=== PATIENT | female | born 1960 | race Caucasian/White ===

== ENCOUNTER 2017-07-07 09:29 | Emergency (ER) | payer OTHER, SELFPAY ==
[2017-07-07 09:30] VITALS: BP 136/76; PULSE 75; RESP 16; TEMP 36.6; O2SAT 90
[2017-07-07 09:31] VITALS: BP 136/76; PULSE 76; RESP 16; TEMP 37; O2SAT 93; BMI 28.3
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
[2017-07-07 10:17] LABS: Basophils # 0.1 K/mm3 (0-0.2); Basophils % 0.7 % (0.1-2.0); Eosinophils # 0.3 K/mm3 (0.0-0.4); Eosinophils % 3.5 % (0.1-12.0); Hematocrit 44.4 % (37.0-47.0); Hemoglobin 14.8 g/dL (12.2-16.2); Lymphocytes # 3.1 K/mm3 (0.7-4.5); Lymphocytes % 36.5 K/mm3 (10-50); Mean Corpuscular HGB Conc 33.4 g/dL (31.8-35.4); Mean Corpuscular Hemoglobin 30.2 pg (27.0-31.2); Mean Corpuscular Volume 90.6 fl (81-99); Mean Platelet Volume 7.5 fl (7.4-10.4); Monocytes # 0.4 K/mm3 (0.1-1.0); Monocytes % 4.5 % (1.7-9.3); Neutrophils # 4.7 K/mm3 (1.8-7.8); Neutrophils % 54.7 % (37.0-80.0); Platelet Count 279 K/mm3 (142-424); Red Cell Distribution Width 12.4 % (11.5-17.5); White Blood Count 8.6 K/mm3 (4.8-10.8)
[2017-07-07 10:29] VITALS: BP 136/80; PULSE 75; RESP 16; O2SAT 98
[2017-07-07 10:34] LABS: Alanine Aminotransferase 37 U/L (12-78); Albumin/Globulin Ratio 1.1 (1.1-1.8); Alkaline Phosphatase 80 U/L (46-116); Anion Gap 15.6 mEq/L (5-15); Aspartate Amino Transferase 20 U/L (15-37); Bilirubin,Total 0.3 mg/dL (0.2-1.0); Blood Urea Nitrogen 13 mg/dL (7-18); Calcium 9.2 mg/dL (8.5-10.1); Carbon Dioxide 25 mmol/L (21.0-32.0); Chloride 99 mmol/L (98-107); Creatinine Clearance Estimated 73 mL/min (0-300); Creatinine,Serum 0.89 mg/dL (0.55-1.02); Estimated Glomerular Filt Rate 66 ml/min (>60); GFR (African American) 79 ML/MIN (>60); Globulin 3.8 gm/dl (1.3-3.2); Glucose 194 mg/dL (74-106); Potassium 3.6 mmoL/L (3.5-5.1); Sodium 136 mmol/L (136-145); Total Protein,Serum 7.8 gm/dL (6.4-8.2)
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
--- NOTE | 2017-07-07 13:51 | ED_ITS ---
ED Disposition Clinical Impression: Head contusion Qualifiers: Encounter type: initial encounter Contusion of head detail: other part of head Qualified Code(s): S00.83XA - Contusion of other part of head, initial encounter Cervical strain, acute Qualifiers: Encounter type: initial encounter Qualified Code(s): S16.1XXA - Strain of muscle, fascia and tendon at neck level, initial encounter Cold exposure Qualifiers: Encounter type: initial encounter Qualified Code(s): T69.9XXA - Effect of reduced temperature, unspecified, initial encounter Sinusitis Qualifiers: Sinusitis location: unspecified location Chronicity: unspecified Qualified Code (s): J32.9 - Chronic sinusitis, unspecified Disposition: Home, Self-Care Condition on Discharge: Good Instructions: DI for Sinusitis Additional Instructions: see pcp for follow up - Critical Care Critical Care Time: No Attestation: On 07/07/17, the high probability of a clinically significant, sudden or life threatening deterioration of the following system(s) required my full and direct attention, intervention and personal management. The time I documented below is in addition to time spent performing reported procedures but includes the following listed in this critical care notation. Medical Decision Making - Medical Records Medical records reviewed: Yes: I reviewed the patient's medical records. Vital Signs: 07/07/17 09:30 07/07/17 09:31 07/07/17 10:29 Temperature 97.9 F 98.6 F Temperature Source Oral Oral Pulse Rate [Right Brachial] 75 76 75 Respiratory Rate 16 16 16 Blood Pressure [Left Arm] 136/76 136/76 136/80 Blood Pressure Mean [Left Arm] 96 96 98 Blood Pressure Source [Left Arm] Manual Cuff/ Auscultation Manual Cuff/ Auscultation Automatic Cuff Blood Pressure Position [Left Arm] Sitting Sitting Sitting 02 Sat by Pulse Oximetry 90 L 93 L 98 Oxygen Delivery Method Room Air Room Air Room Air - Lab Data Lab results reviewed: Yes: I reviewed the patient's lab results. Lab Results 07/07/17 10:03: WBC 8.6, RBC 4.90, Hgb 14.8, Hct 44.4, MCV 90.6, MCH 30.2, MCHC 33.4, RDW 12.4, Plt Count 279, MPV 7.5, Neut % (Auto) 54.7, Lymph % (Auto) 36.5 , Harmon % (Auto) 4.5, Eos % (Auto) 3.5, Baso % (Auto) 0.7, Neut # (Auto) 4.7, Lymph # (Auto) 3.1, Harmon # (Auto) 0.4, Eos # (Auto) 0.3, Baso # (Auto) 0.1 07/07/17 10:03: Sodium 136, Potassium 3.6, Chloride 99, Carbon Dioxide 25, Anion Gap 15.6 H, BUN 13, Creatinine 0.89, Estimated Creat Clear 73, Estimated GFR 66, Est GFR ( Amer) 79, Glucose 194 H, Calcium 9.2, Total Bilirubin 0.3, AST 20, ALT 37, Alkaline Phosphatase 80, Total Protein 7.8, Albumin 4.0, Globulin 3.8 H, Albumin/Globulin Ratio 1.1 Result diagrams: 07/07/17 10:03 07/07/17 10:03 Orders (Tests/Meds): ED MEDICATIONS Discontinued Medications Generic Name Dose Route Start Last Admin Trade Name Freq PRN Reason Stop Dose Admin Acetaminophen 650 mg 07/07/17 11:37 07/07/17 11:45 Acetaminophen 325mg Tab PO 07/07/17 11:38 650 mg ONCE ONE Administration - Radiology Data #1 Image(s): Chest, Pelvis Image Reviewed: Yes I reviewed the patient's radiology image Preliminary Findings: Normal/NAD - CT Data CT Scan: Head, C-Spine Time Received: 13:[address] Reviewed: Yes: I have viewed the radiologist's interpretation Preliminary Findings: No Fractu
[2017-07-07 14:11] VITALS: BP 132/78; PULSE 87; RESP 14; TEMP 37; O2SAT 95
[2017-07-08 07:45] LABS: POC Glucose,Bedside 198 mg/dL
== END 2017-07-07 14:12 | disposition home or self-care (01) ==
PROVIDERS: Emergency Provider Emergency Medicine; Family Provider Family Medicine
DX: S00.93XA Contusion of unspecified part of head, initial encounter (principal); S16.1XXA Strain of muscle, fascia and tendon at neck level, initial encounter; T69.9XXA Effect of reduced temperature, unspecified, initial encounter; J32.9 Chronic sinusitis, unspecified; V48.0XXA Car driver injured in noncollision transport accident in nontraffic accident, initial encounter; Y92.488 Other paved roadways as the place of occurrence of the external cause
CPT/HCPCS: 70450; 71045; 72125; 72170; 80053; 82962; 85025; 99281; 99291

== ENCOUNTER → 2020-03-21 12:41 | Outpatient (CLI) | payer OTHER, SELFPAY ==
--- NOTE | 2020-03-21 12:53 | XR_ITS ---
PROCEDURE: XR CHEST 2V CLINICAL HISTORY: HTN,ANGINA,EDEMA COMPARISON: No exams were available for comparison FINDINGS: Mild emphysematous changes noted with hyperexpansion lung coto. There is no infiltrate. Cardiac size is normal and vascularity is normal and there is no pleural fluid. IMPRESSION: Mild COPD, no acute chest pathology noted Dictated by: Dr. Ranjit Jones MD 03/21/2020 13:09 Dr. Ranjit Jones MD in [place] 03/21/2020 13:09
[2020-03-21 14:00] LABS: Chloride 99 mmol/L (98-107); Sodium 139 mmol/L (136-145)
[2020-03-21 14:01] LABS: Potassium 3.8 mmoL/L (3.5-5.1)
[2020-03-21 14:04] LABS: Anion Gap 12.8 mEq/L (5-15); Blood Urea Nitrogen 13 mg/dl (7-17); Calcium 9.5 mg/dl (8.4-10.2); Carbon Dioxide 31 mmol/L (22.0-30.0); Estimated Glomerular Filt Rate 86 ml/min (>60); GFR (African American) 104 ML/MIN (>60); Glucose 110 mg/dl (74-100)
[2020-03-21 14:12] LABS: NT Pro Brain Natriuretic Pep. 50.3 pg/mL (0-125)
== END ==
PROVIDERS: Visit Provider Family Medicine
DX: I20.0 Unstable angina (principal); I10 Essential (primary) hypertension; R60.1 Generalized edema; Z87.891 Personal history of nicotine dependence
CPT/HCPCS: 36415; 71046; 80048; 83880

== ENCOUNTER → 2020-03-31 06:13 | Outpatient (CLI) | payer OTHER, SELFPAY ==
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
--- NOTE | 2020-03-31 06:19 | NM_ITS ---
APPROVED REPORT Exam: Nuclear Stress Test Indication: Chest pain, SOB, HTN, DM, Former tobacco use, Family history, Abnormal EKG Patient Location: Outpatient Stress Tech: Senait Goncalvesnkson NM Tech:Mel Mcfarlane, ARRT, RT (R)(N) Ht: 5 ft 0 in Wt: 165 lbs Bra Size: 38B HR: 78 bpm BP: 148/78 mmHg BSA: 1.72 m2 History: Chest pain, SOB, HTN, DM, Former tobacco use, Family history, Abnormal EKG Procedure: Patient received a 0.4 mg of intravenous Lexiscan, resting heart rate 78 bpm, resting blood pressure 148/78 mmHg, with Lexiscan maximum heart rate achived was 103 bpm which is Less than 85 % of the maximum predicted heart rate and blood pressure was 165/76 mmHg. Electrocardiogram Resting electrocardiogram showed sinus rhythm, with Lexiscan there is less than 1.[address] segment depression noted from the baseline EKG. The EKG portion of the Lexiscan Myoview is nondiagnostic. Cardiac Stress and Resting SPECT Images: Cardiac Stress and Resting SPECT images were obtained using technetium 99m Myoview 30.6 mCi stress and 10.42 mCi at rest. Gated SPECT for analysis of segmental wall motion and calculation of the ejection fraction also done. Prone images were also obtained. Cardiac stress and resting SPECT images show uniform myocardial activity without segmental perfusion abnormality, computer derived ejection fraction is over 65% with no regional wall motion abnormality, right ventricle is normal size and contractility. Conclusion: 1. The EKG portion of the Lexiscan Myoview is nondiagnostic. 2. No scintigraphic evidence of reversible ischemia seen, computer derived ejection fraction is over 65% with no regional wall motion abnormality, right ventricle is normal size and contractility. 3. Normal Lexiscan Myoview study. Electronically signed by : Alex Damian, 03/31/2020 11:00:22
--- NOTE | 2020-03-31 08:40 | HMH.ITSHM ---
Current Home Medications as stated by this patient Javier Glass or bilingual inside sales representative. []ASA ATENOLOL LISINOPRIL INSULIN
== END ==
PROVIDERS: PCP Family Medicine; Visit Provider Family Medicine
DX: I20.0 Unstable angina (principal); I10 Essential (primary) hypertension; E11.9 Type 2 diabetes mellitus without complications; Z87.891 Personal history of nicotine dependence
CPT/HCPCS: 78452; 93017; A9502; J2785

== ENCOUNTER → 2020-06-15 08:12 | Outpatient (CLI) | payer OTHER, SELFPAY ==
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
[2020-06-15 09:55] VITALS: PULSE 62; PULSE 64
== END ==
PROVIDERS: PCP Family Medicine; Visit Provider Family Medicine
DX: R06.00 Dyspnea, unspecified (principal); J18.9 Pneumonia, unspecified organism; Z87.891 Personal history of nicotine dependence; Z99.81 Dependence on supplemental oxygen
CPT/HCPCS: 71250; 94060; 94640

== ENCOUNTER → 2020-08-12 11:25 | Outpatient (CLI) | payer OTHER, SELFPAY | PROVIDERS: PCP Family Medicine; Visit Provider Internal Medicine Pulmonary Disease | DX: R06.00 Dyspnea, unspecified (principal); Z87.891 Personal history of nicotine dependence; Z99.81 Dependence on supplemental oxygen | CPT/HCPCS: 94060; 94618; 94726; 94729 ==

== ENCOUNTER → 2020-08-12 13:05 | Outpatient (CLI) | payer OTHER, SELFPAY ==
[2020-08-14 10:30] LABS: Alpha-1-Antitrypsin 145 mg/dL (101-187)
== END ==
PROVIDERS: Visit Provider Internal Medicine Pulmonary Disease
DX: J44.9 Chronic obstructive pulmonary disease, unspecified (principal)
CPT/HCPCS: 36415; 82103

== ENCOUNTER → 2020-09-14 13:00 | Outpatient (CLI) | payer OTHER, SELFPAY ==
--- NOTE | 2020-09-14 13:00 | CT_ITS ---
PROCEDURE: CT CHEST WO CON CLINICAL INDICATION: Nodule follow up 3 months from 06/17/2020 Prior on pacs Follow-up pulmonary nodule COMPARISON: CT CT CHEST WO CON from 06/15/2020 TECHNIQUE: Axial images obtained with sagittal and coronal reformats. All CT scans at the facility use one or more dose reduction, viz: automated exposure control, ma/kV adjustment per patient size (including targeted exams where dose is matched to indication, i.e. head), or iterative reconstruction technique. FINDINGS: HEART AND MEDIASTINAL STRUCTURES: No mediastinal or hilar mass. Coronary artery calcifications are present. LUNGS AND PLEURAL SPACES: Panlobular emphysema. 12 mm right upper lobe nodule once again noted not significantly changed. Scattered areas of scarring. There is a subpleural density in the right upper lobe posteriorly at 10 mm unchanged. 6 mm subpleural nodule right middle lobe anteriorly unchanged dependent changes are present in the lower lobes. Septal thickening once again noted in the lung bases BONY STRUCTURES: No acute bony abnormalities apparent. UPPER ABDOMEN: Unremarkable. ADDITIONAL FINDINGS: No other significant abnormalities. IMPRESSION: Stable CT appearance of the chest. No change in the nodular densities in the right upper lobe right middle lobe and subpleural region of the right lower lobe. Suggest continued 6-9 month follow-up COPD with panlobular emphysema and scattered areas of scarring as well dependent changes Dictated by: Zac Rivers MD 09/15/2020 12:09 Zac Rivers MD in [place] 09/15/2020 12:09
== END ==
PROVIDERS: PCP Family Medicine; Visit Provider Internal Medicine Pulmonary Disease
DX: R91.1 Solitary pulmonary nodule (principal); R91.8 Other nonspecific abnormal finding of lung field
CPT/HCPCS: 71250

== ENCOUNTER → 2021-06-14 15:31 | Outpatient (CLI) | payer OTHER, SELFPAY ==
--- NOTE | 2021-06-14 15:31 | CT_ITS ---
FINAL REPORT TECHNIQUE: Axial CT images were performed from the lung apices through the upper abdomen. Coronal reformats were submitted. This study was performed with techniques to keep radiation doses as low as reasonably achievable (ALARA). Individualized dose reduction techniques using automated exposure control or adjustment of mA and/or kV according to the patient's size were employed. CLINICAL HISTORY: 9-month follow-up COMPARISON: 09/14/2020 FINDINGS: There is no axillary adenopathy. There is no hilar or mediastinal mass or adenopathy. Heart size is normal. There is no pericardial or pleural effusion. There is moderate emphysema. Mild scarring is identified. There is a 14 mm right apical nodule which is stable. There is a pleural-based nodule in the anterior right lung base measuring 4 mm, stable. No new mass or nodule is identified. There is mild fatty infiltration of the liver. IMPRESSION: Stable nodules as above. Consider additional follow-up CT in 12 months. Reviewed, Interpreted and Dictated by Saad Talamantes III, MD Transcribed by Becky Stewart Authenticated by Saad Talamantes III, MD on 06/14/2021 04:44:51 PM [facility]
== END ==
PROVIDERS: PCP Family Medicine; Visit Provider Internal Medicine Pulmonary Disease
DX: R91.8 Other nonspecific abnormal finding of lung field (principal)
CPT/HCPCS: 71250

== ENCOUNTER → 2021-06-26 09:29 | Outpatient (CLI) | payer OTHER, SELFPAY | PROVIDERS: PCP Family Medicine; Visit Provider Internal Medicine Pulmonary Disease | DX: R06.00 Dyspnea, unspecified (principal) | CPT/HCPCS: 94762 ==

== ENCOUNTER → 2021-07-10 09:49 | Outpatient (CLI) | payer OTHER, SELFPAY | PROVIDERS: PCP Family Medicine; Visit Provider Internal Medicine Pulmonary Disease | DX: G47.33 Obstructive sleep apnea (adult) (pediatric) (principal) | CPT/HCPCS: 95806 ==

== ENCOUNTER → 2021-08-09 20:58 | Outpatient (CLI) | payer OTHER, SELFPAY | PROVIDERS: PCP Family Medicine; Visit Provider Nurse Practitioner Family | DX: G47.33 Obstructive sleep apnea (adult) (pediatric) (principal); R09.02 Hypoxemia | CPT/HCPCS: 95811 ==

== ENCOUNTER → 2021-12-07 07:27 | Outpatient (CLI) | payer OTHER, SELFPAY ==
[2021-12-07 08:30] VITALS: PULSE 66; PULSE 68
[2021-12-07 08:50] VITALS: BP 140/82; BP 145/90; PULSE 81; PULSE 88; RESP 20; RESP 22; O2SAT 88; O2SAT 89
== END ==
PROVIDERS: PCP Family Medicine; Visit Provider Internal Medicine Pulmonary Disease
DX: R06.09 Other forms of dyspnea (principal); R91.1 Solitary pulmonary nodule
CPT/HCPCS: 94060; 94618; 94640; 94727; 94729

== ENCOUNTER → 2022-01-30 12:21 | Outpatient (CLI) | payer OTHER, SELFPAY | PROVIDERS: PCP Family Medicine; Visit Provider Nurse Practitioner Family | DX: G47.33 Obstructive sleep apnea (adult) (pediatric) (principal); G47.36 Sleep related hypoventilation in conditions classified elsewhere | CPT/HCPCS: 94762 ==

== ENCOUNTER → 2022-03-20 09:06 | Outpatient (CLI) | payer OTHER, SELFPAY | PROVIDERS: PCP Family Medicine; Visit Provider Internal Medicine Pulmonary Disease | DX: R06.02 Shortness of breath (principal) | CPT/HCPCS: 93306 ==

== ENCOUNTER → 2022-04-23 10:24 | Outpatient (CLI) | payer OTHER, SELFPAY ==
[2022-04-23 11:37] LABS: Chloride 99 mmol/L (98-107); Potassium 4.7 mmoL/L (3.5-5.1); Sodium 141 mmol/L (136-145)
[2022-04-23 11:40] LABS: Blood Urea Nitrogen 21 mg/dl (7-17); Estimated Glomerular Filt Rate 38 ml/min (>60); GFR (African American) 46 ML/MIN (>60)
[2022-04-23 11:41] LABS: Anion Gap 15.7 mEq/L (5-15); Calcium 10.8 mg/dl (8.4-10.2); Carbon Dioxide 31 mmol/L (22.0-30.0); Glucose 115 mg/dl (74-100)
== END ==
PROVIDERS: PCP Family Medicine; Visit Provider Physician Assistant
DX: R06.09 Other forms of dyspnea (principal); I10 Essential (primary) hypertension
CPT/HCPCS: 36415; 80048

== ENCOUNTER → 2022-05-01 10:56 | Outpatient (CLI) | payer OTHER, SELFPAY ==
[2022-05-01 12:09] LABS: Anion Gap 21.8 mEq/L (5-15); Blood Urea Nitrogen 15 mg/dl (7-17); Carbon Dioxide 31 mmol/L (22.0-30.0); Chloride 93 mmol/L (98-107); Estimated Glomerular Filt Rate 73 ml/min (>60); GFR (African American) 88 ML/MIN (>60); Glucose 107 mg/dl (74-100); Potassium 3.8 mmoL/L (3.5-5.1); Sodium 142 mmol/L (136-145)
== END ==
PROVIDERS: PCP Family Medicine; Visit Provider Nurse Practitioner
DX: N28.9 Disorder of kidney and ureter, unspecified (principal); I51.89 Other ill-defined heart diseases
CPT/HCPCS: 36415; 80048

== ENCOUNTER → 2022-05-21 12:47 | Outpatient (CLI) | payer OTHER, SELFPAY ==
[2022-05-21 13:43] LABS: Basophils # 0.1 K/mm3 (0-0.2); Basophils % 1.1 % (0.1-2.0); Eosinophils # 0.2 K/mm3 (0.0-0.4); Hematocrit 47.3 % (37.0-47.0); Hemoglobin 15.8 g/dL (12.2-16.2); Lymphocytes # 2.9 K/mm3 (0.7-4.5); Lymphocytes % 31.3 % (10-50); Mean Corpuscular HGB Conc 33.3 g/dL (31.8-35.4); Mean Corpuscular Hemoglobin 30.9 pg (27.0-31.2); Mean Corpuscular Volume 92.9 fl (81-99); Mean Platelet Volume 8.2 fl (7.4-10.4); Monocytes # 0.4 K/mm3 (0.1-1.0); Monocytes % 4.5 % (1.7-9.3); Neutrophils # 5.6 K/mm3 (1.8-7.8); Neutrophils % 61.2 % (37.0-80.0); Platelet Count 287 K/mm3 (142-424); Red Cell Distribution Width 13.2 % (11.5-17.5); White Blood Count 9.1 K/mm3 (4.8-10.8)
[2022-05-21 14:16] LABS: Alanine Aminotransferase 24 U/L (12-78); Alkaline Phosphatase 93 U/L (38-126); Anion Gap 13.8 mEq/L (5-15); Aspartate Amino Transferase 31 U/L (14-36); Bilirubin,Indirect 0.2 mg/dL (0.0-0.9); Bilirubin,Total 0.2 mg/dl (0.2-1.3); Bilirubin,Unconjugated 0.2 mg/dL (0.0-1.1); Blood Urea Nitrogen 13 mg/dl (7-17); Calcium 10.5 mg/dl (8.4-10.2); Carbon Dioxide 27 mmol/L (22.0-30.0); Chloride 103 mmol/L (98-107); Chol/HDL Ratio 4.7 (1-3.5); Cholesterol 196 mg/dl (140-200); Estimated Glomerular Filt Rate 85 ml/min (>60); GFR (African American) 103 ML/MIN (>60); Glucose 128 mg/dl (74-100); HDL Cholesterol 42 mg/dl (40-60); Magnesium 2.2 mg/dl (1.6-2.3); Potassium 3.8 mmoL/L (3.5-5.1); Sodium 140 mmol/L (136-145); Total Protein,Serum 7.9 g/dl (6.3-8.2); Triglycerides 250 mg/dl (30-150); VLDL Cholesterol 50 mg/dL (0-40)
[2022-05-21 14:26] LABS: Direct LDL Cholesterol 117.96 mg/dL (100-129)
[2022-05-21 14:28] LABS: Intact Parathyroid Hormone 39.1 pg/mL (7.5-53.5)
[2022-05-21 14:46] LABS: Thyroid Stimulating Hormone 5.41 uIU/mL (0.465-4.68)
[2022-05-21 15:34] LABS: Free T4 (Free Thyroxine) 0.76 ng/dl (0.78-2.19)
[2022-05-23 14:12] LABS: Albumin 4.3 g/dL (2.9-4.4); Alpha-1-Globulin 0.2 g/dL (0.0-0.4); Alpha-2-Globulin 0.7 g/dL (0.4-1.0); Gamma Globulin 1.1 g/dL (0.4-1.8); Protein, Total 7.5 g/dL (6.0-8.5)
== END ==
PROVIDERS: PCP Family Medicine; Visit Provider Physician Assistant
DX: R06.09 Other forms of dyspnea (principal); R00.2 Palpitations; E83.52 Hypercalcemia; H53.9 Unspecified visual disturbance; I10 Essential (primary) hypertension
CPT/HCPCS: 36415; 80048; 80061; 80076; 83735; 83970; 84155; 84165; 84439; 84443; 85025; 93270

== ENCOUNTER → 2022-05-28 13:39 | Outpatient (CLI) | payer OTHER, SELFPAY ==
--- NOTE | 2022-05-28 13:42 | CA_ITS ---
FINAL REPORT TECHNIQUE: Color Doppler, duplex Doppler and costa scale sonography of the bilateral neck arterial vasculature was performed. Velocities were measured in the carotid arteries. Stenosis evaluation based on the validated velocity criteria. CLINICAL HISTORY: VISUAL DISTURBANCES,HTN FINDINGS: The peak systolic velocity of the right common carotid artery is 110 cm/s. The peak systolic velocity of the right internal carotid artery is 119 cm/s and end diastolic velocity 41 cm/s. The ICA/CCA ratio is 1.1. A small amount of plaque is present. The right external carotid artery is patent. The right vertebral artery is patent with antegrade flow. The peak systolic velocity of the left common carotid artery is 90 cm/s. The peak systolic velocity of the left internal carotid artery is 106 cm/s and end diastolic velocity 41 cm/s. The ICA/CCA ratio is 1.3. A small amount of plaque is present. The left external carotid artery is patent.The left vertebral artery is patent with antegrade flow. IMPRESSION: Less than 50% bilateral carotid stenoses. Bilateral patent vertebral arteries with antegrade flow. If indicated, CTA or MRA could further evaluate. Reviewed, Interpreted and Dictated by Saad Talamantes III, MD Transcribed by Becky Stewart Authenticated and . [facility]
--- NOTE | 2022-05-28 14:01 | US_ITS ---
FINAL REPORT CLINICAL HISTORY: hypercalcemia FINDINGS: Limited sonographic images of the thyroid were obtained. The thyroid is enlarged with heterogeneous echotexture. The right lobe of the thyroid measures 5.4 x 1.7 x 1.5 cm. The left lobe of the thyroid measures 5.3 x 1.8 x 1.7 cm. The isthmus measures 0.3 cm. There is a solid, hypoechoic nodule in the right upper lobe of the thyroid measuring 9 x 8 x 4 mm consistent with TI-RADS category 4. There is a solid, hypoechoic nodule in the right lower thyroid lobe measuring 9 x 8 x 6 mm consistent with TI-RADS category 4. There is a 3rd nodule adjacent to this in the right lower lobe of the thyroid measuring 7 x 8 x 5 mm consistent with TI-RADS category 4. There is a nodule in the left lower lobe of the thyroid measuring 15 x 9 x 11 mm which is cystic and solid consistent with TI-RADS category 1. IMPRESSION: Bilateral thyroid nodules as detailed above. No follow-up is required. Reviewed, Interpreted and Dictated by Saad Talamantes III, MD Transcribed by Becky Stewart Authenticated and [facility][1]
== END ==
PROVIDERS: PCP Family Medicine; Visit Provider Physician Assistant
DX: R06.09 Other forms of dyspnea (principal); E83.52 Hypercalcemia; H53.9 Unspecified visual disturbance; I10 Essential (primary) hypertension; R00.2 Palpitations
CPT/HCPCS: 76536; 93880

== ENCOUNTER → 2022-06-20 15:02 | Outpatient (CLI) | payer OTHER, SELFPAY ==
[2022-06-20 17:44] LABS: Blood Urea Nitrogen 14 mg/dl (7-17); Calcium 9.4 mg/dl (8.4-10.2); Carbon Dioxide 29 mmol/L (22.0-30.0); Chloride 104 mmol/L (98-107); Estimated Glomerular Filt Rate 73 ml/min (>60); GFR (African American) 88 ML/MIN (>60); Glucose 115 mg/dl (74-100); Sodium 143 mmol/L (136-145)
== END ==
PROVIDERS: PCP Family Medicine; Visit Provider Physician Assistant
DX: E04.1 Nontoxic single thyroid nodule (principal); E83.52 Hypercalcemia; H53.9 Unspecified visual disturbance; I10 Essential (primary) hypertension; I51.89 Other ill-defined heart diseases; R00.2 Palpitations; R06.09 Other forms of dyspnea
CPT/HCPCS: 36415; 80048

== ENCOUNTER → 2022-07-02 15:11 | Outpatient (CLI) | payer OTHER, SELFPAY ==
--- NOTE | 2022-07-02 15:11 | CT_ITS ---
FINAL REPORT CLINICAL HISTORY: lung cancer screening former smoker. quit 17 years ago. smoked 1.5 ppd x 42 years copd, emphysema, chf COMPARISON: September 14, 2020 and June 14, 2021 FINDINGS: Low-Dose Chest CT Axial images were obtained from the lung apex to the mid abdomen by computed tomography. Low-dose protocol was utilized. CTDI vol (mGy): 2.90 DLP (mGy-cm): 96.38 There is no axillary adenopathy. There is no hilar or mediastinal adenopathy. The heart is proper size. There is no pericardial or pleural effusion. Lung window images demonstrate severe changes of emphysema with moderate pulmonary scarring. There is a 13 mm nodular opacity in the lateral right upper lobe which is stable. There is a 4 mm right middle lobe nodule which is stable. No new mass or nodule is identified. Limited images of the upper abdomen demonstrate post cholecystectomy changes. IMPRESSION: Lung RADS category 2. Recommend 12 month follow-up low-dose chest CT. Reviewed, Interpreted and Dictated by Saad Talamantes III, MD Transcribed by Che Nelson Authenticated and [facility]
== END ==
PROVIDERS: PCP Family Medicine; Visit Provider Internal Medicine Pulmonary Disease
DX: Z87.891 Personal history of nicotine dependence (principal); Z12.2 Encounter for screening for malignant neoplasm of respiratory organs
CPT/HCPCS: 71271

== ENCOUNTER → 2022-10-17 12:53 | Outpatient (CLI) | payer OTHER, SELFPAY ==
[2022-10-17 13:40] VITALS: PULSE 88; PULSE 95
== END ==
PROVIDERS: PCP Family Medicine; Visit Provider Internal Medicine Pulmonary Disease
DX: R06.09 Other forms of dyspnea (principal)
CPT/HCPCS: 94060; 94618; 94640; 94727; 94729

== ENCOUNTER → 2022-12-18 14:44 | Outpatient (CLI) | payer OTHER, SELFPAY ==
[2022-12-18 16:04] LABS: Free T4 (Free Thyroxine) 0.94 ng/dl (0.78-2.19)
[2022-12-18 16:18] LABS: Thyroid Stimulating Hormone 5.89 uIU/mL (0.465-4.68)
== END ==
PROVIDERS: PCP Family Medicine; Visit Provider Student in an Organized Health Care Education/Training Program
DX: E03.9 Hypothyroidism, unspecified (principal)
CPT/HCPCS: 36415; 84439; 84443

== ENCOUNTER → 2023-03-18 13:30 | Outpatient (CLI) | payer OTHER, SELFPAY ==
[2023-03-18 16:38] LABS: Thyroid Stimulating Hormone 5.04 uIU/mL (0.465-4.68)
== END ==
PROVIDERS: PCP Family Medicine; Visit Provider Nurse Practitioner
DX: E03.9 Hypothyroidism, unspecified (principal); E04.1 Nontoxic single thyroid nodule
CPT/HCPCS: 36415; 84439; 84443

== ENCOUNTER → 2023-04-04 07:23 | Outpatient (CLI) | payer OTHER, SELFPAY ==
--- NOTE | 2023-04-04 | CA_ITS ---
APPROVED REPORT Exam: Pharmacologic Technologist: Gia Carmichael, Ht: 5 ft 6 in Wt: 162 lbs BSA: 1.83 m2 HR: 70 bpm BP: 144/67 mmHg Rhythm: NSR Medical History Medications: Levothyroxine,,,,, Metoprolol Tartrate,,,,, Atorvastatin,,,,, Farxiga,,,,, Albuterol,,,,, MiraLAX,,,,, SpirOnolactone,,,,, AZelastine,,,,, MonteKULAST,,,,, ANoro Ellipta,,,,, Ozempic,,,,, INSULIN Gargine,,,,, Stress Test Details Test: LEXISCAN Reason for pharmacologic stress test: physical limitation. HR Resting HR: 71 bpm Max Heart Rate (APMHR): 158 bpm Max HR Achieved: 91 bpm Target HR (85% APMHR): 134 bpm % of APMHR: 58 Recovery HR: 78 bpm BP Resting BP: 144.0/67.0 mmHg Max BP: 157.0/76.0 mmHg Recovery BP: 149.0/75.0 mmHg ECG Resting ECG: NSR, low voltage QRS Stress ECG: No significant ST changes Arrhythmia: None Clinical Exercise duration: 04:00 min Highest Stage Achieved: Stress ECG Conclusion Symptoms: mild chest pressure, SOA, mild head discomfort. Arrhythmias/Ectopy: None ST-T Changes: No significant ST changes. Conclusion: Unremarkable Lexiscan stress. Myoview images reported separately. Test Summary REST . . . . . . . Resting REST 03:03 . . 71 . 144/ 67 . . Stage 1 01:00 . . 89 . . . . Stage 2 01:00 . . 84 . 157/ 76 . . Stage 3 01:00 . . 79 . 141/ 72 . . Stage 4 01:00 . . 79 . 156/ 75 . Stop exercise at 04:00 RECOVERY 01:00 . . 79 . 135/ 75 . . RECOVERY 02:00 . . 76 . 135/ 75 . . RECOVERY 03:00 . . 79 . 144/ 77 . . RECOVERY 03:29 . . 78 . 149/ 75 . . Electronically signed by : Loida Meng MD 04/10/2023 14:14:36
--- NOTE | 2023-04-04 07:24 | NM_ITS ---
APPROVED REPORT Exam: Nuclear Stress Test Indication: ..chest pain..soa Patient Location: Outpatient Stress Tech: Gia Chavarria [place] Tech:Helen Jara MAYO RT(R)(N) Ht: 5 ft 0 in Wt: 161 lbs Bra Size: 36b HR: 71 bpm BP: 144/67 mmHg BSA: 1.70 m2 Rhythm: NSR TID: 1.17 History: chest pain..soa Procedure: Patient received 0.4 mg of intravenous Lexiscan, resting heart rate 71 bpm, resting blood pressure 144/67 mmHg, with Lexiscan maximum heart rate achieved was 91 bpm which is 85 % of the maximum predicted heart rate and blood pressure was 157/76 mmHg. With Lexiscan, patient denied any complaint of chest pain. Cardiac Stress and Resting SPECT Images: Cardiac Stress and Resting SPECT images were obtained using technetium 99m Myoview 32.4 mCi stress and 10.67 mCi at rest. Resting and stress imaging in supine and prone positions demonstrate no evidence of fixed or reversible perfusion defects. Gated imaging demonstrates normal global and regional LV systolic function. LVEF is calculated at 72%. Conclusion: No evidence of fixed or reversible perfusion defects. Gated imaging demonstrates normal global and regional LV systolic function. LVEF is calculated at 72%. Electronically signed by : Loida Meng MD 04/10/2023 14:15:43
--- NOTE | 2023-04-04 07:45 | CA_ITS ---
APPROVED REPORT EXAM: Comprehensive 2D, Doppler, and color-flow Echocardiogram It Support Technician: Nancy Brown CRT Ht: 5 ft 5 in Wt: 162lbs BSA: 1.81 BP: 121/69 mmHg Indications: Chest Pain, COPD, Diabetes, Obesity, Hypertension/HDD 2D Dimensions LVOT 1.68 cm (M/F) 1.5-2.5 LA Volume 17.90 mL LA Volume Index 9.70 mL/m2 (M/F) 16-34 M-Mode Dimensions RVDd 2.61 cm (0.9-2.6) LA Diam 3.34 cm (1.9-4.0) LVDd 4.29 cm (3.5-5.7) Ao Diam 3.78 cm (2.0-3.7) LVDs 2.81 cm (3.5-5.7) IVSd 1.00 cm (0.6-1.1) PWd 0.90 cm (0.6-1.1) EF (Teich) 63.90% FS 34.50% EDV (Teich) 82.60 mL TAPSE 1.78 (<1.7) ESV (Teich) 29.80 mL LV Diastology E Decel Time 273.00 (160-240 msec) E/A Ratio 0.75 MED E' 9.60 (< 7 cm/sec) MED A' 8.50 cm/s E'/MED E' Ratio 6.66 (>14) LAT E' 7.80 (<10 cm/sec) LAT A' 10.20 cm/s E/LAT E' Ratio 8.19 (>14) Aortic Valve AO Peak GR. 6.30 mmHg Mitral Valve MV A Velocity 85.00 (40-130 cm/s) E/A Ratio 0.75 MV Decel. Time 273.00 (160-240 ms) Pulmonary Valve PV Peak Velocity 115.00 (50-150 cm/s) Tricuspid Valve TR P. Velocity 137.00 cm/s RAP Estimate 10.00 mmHg RVSP 17.50 mmHg Left Ventricle The left ventricle is normal size. The left ventricular systolic function is normal. The left ventricular ejection fraction is within the normal range. There is normal left ventricular wall thickness. There is normal LV segmental wall motion. The left ventricular diastolic function is normal. LVEF is 55%. Right Ventricle The right ventricle is normal size. The right ventricular systolic function is normal. Atria The left atrium size is normal. The right atrium size is normal. There is no Doppler evidence of interatrial shunt. Aortic Valve The aortic valve opens well. There is no aortic valvular stenosis. No aortic regurgitation is present. Mitral Valve The mitral valve is normal in structure. No evidence of mitral valve stenosis. Trace mitral regurgitation. Tricuspid Valve The tricuspid valve leaflets are thin and pliable. Trace tricuspid regurgitation. There is insufficient TR jet to estimate RVSP. Pulmonic Valve The pulmonary valve is normal in structure. Trace pulmonic regurgitation. Great Vessels The aortic root is normal in size. The ascending aorta is normal in size. IVC is normal in size and collapses >50% with inspiration. Pericardium There is no pericardial effusion. Other Information Study Quality: Fair Conclusion Normal biventricular systolic function. No significant valvular stenosis or regurgitation. Electronically signed by : Loida Meng MD 04/06/2023 21:02:58
[2023-04-04 11:18] LABS: Basophils # 0.1 K/mm3 (0-0.2); Basophils % 0.7 % (0.1-2.0); Eosinophils # 0.3 K/mm3 (0.0-0.4); Eosinophils % 3.6 % (0.1-12.0); Hematocrit 52.1 % (37.0-47.0); Hemoglobin 17.7 g/dL (12.2-16.2); Lymphocytes # 2.3 K/mm3 (0.7-4.5); Lymphocytes % 30.5 % (10-50); Mean Corpuscular HGB Conc 34.1 g/dL (31.8-35.4); Mean Corpuscular Volume 93.8 fl (81-99); Monocytes # 0.4 K/mm3 (0.1-1.0); Monocytes % 4.6 % (1.7-9.3); Neutrophils # 4.6 K/mm3 (1.8-7.8); Neutrophils % 60.6 % (37.0-80.0); Platelet Count 228 K/mm3 (142-424); Red Blood Count 5.55 M/mm3 (4.20-5.40); Red Cell Distribution Width 13.5 % (11.5-17.5); White Blood Count 7.6 K/mm3 (4.8-10.8)
[2023-04-04 12:35] LABS: Alanine Aminotransferase 22 U/L (12-78); Albumin Level 4.9 g/dl (3.5-5.0); Alkaline Phosphatase 61 U/L (38-126); Aspartate Amino Transferase 29 U/L (14-36); Bilirubin,Direct 0.1 mg/dl (0.0-0.4); Bilirubin,Indirect 0.4 mg/dL (0.0-0.9); Bilirubin,Total 0.5 mg/dl (0.2-1.3); Bilirubin,Unconjugated 0.4 mg/dL (0.0-1.1); Blood Urea Nitrogen 14 mg/dl (7-17); Calcium 9.7 mg/dl (8.4-10.2); Carbon Dioxide 30 mmol/L (22.0-30.0); Chol/HDL Ratio 4.9 (1-3.5); Cholesterol 194 mg/dl (140-200); Estimated Glomerular Filt Rate 85 ml/min (>60); GFR (African American) 103 ML/MIN (>60); Glucose 103 mg/dl (74-100); HDL Cholesterol 40 mg/dl (40-60); Potassium 3.9 mmoL/L (3.5-5.1); Sodium 140 mmol/L (136-145); Total Protein,Serum 7.8 g/dl (6.3-8.2); Triglycerides 259 mg/dl (30-150); VLDL Cholesterol 52 mg/dL (0-40)
[2023-04-04 12:37] LABS: Anion Gap 11.9 mEq/L (5-15); Chloride 102 mmol/L (98-107)
[2023-04-04 12:46] LABS: Direct LDL Cholesterol 113.97 mg/dL (100-129)
[2023-04-04 12:51] LABS: Free T4 (Free Thyroxine) 1.44 ng/dl (0.78-2.19)
[2023-04-04 13:06] LABS: Thyroid Stimulating Hormone 1.87 uIU/mL (0.465-4.68)
== END ==
PROVIDERS: Nurse Practitioner; PCP Family Medicine; Visit Provider Physician Assistant
DX: R06.00 Dyspnea, unspecified (principal); R07.89 Other chest pain; I47.10 Supraventricular tachycardia, unspecified; R00.1 Bradycardia, unspecified; I11.9 Hypertensive heart disease without heart failure; E11.9 Type 2 diabetes mellitus without complications; I63.9 Cerebral infarction, unspecified; E66.9 Obesity, unspecified; Z68.27 Body mass index [BMI] 27.0-27.9, adult; Z79.4 Long term (current) use of insulin
CPT/HCPCS: 36415; 78452; 80048; 80061; 80076; 83735; 84439; 84443; 85025; 93017; 93018; 93270; 93306; A9502; J2785

== ENCOUNTER → 2023-05-01 20:18 | Outpatient (CLI) | payer OTHER, SELFPAY ==
--- OUTSIDE RECORDS SUMMARY | 2023-05-02 09:52 | XMS_ITS | Clinical Summary ---
Author Name Unknown Address [address] [place] [address] Phone Organization [facility] Address [address] [place] [address] Phone Care Team Providers Care Air Analysis Technician Name Role Phone Unavailable Unavailable Conditions or Problems No information available. Medications No information available. Medications Administered No information available. Allergies, Adverse Reactions, Alerts No information available. Results No information available. Plan of Care No information available. Procedures No information available. Vital Signs No information available. Immunizations No information available. Advance Directives No information available.
== END ==
PROVIDERS: PCP Family Medicine; Visit Provider Specialist
DX: G47.33 Obstructive sleep apnea (adult) (pediatric) (principal); J44.9 Chronic obstructive pulmonary disease, unspecified; J96.10 Chronic respiratory failure, unspecified whether with hypoxia or hypercapnia; Z87.891 Personal history of nicotine dependence; G47.36 Sleep related hypoventilation in conditions classified elsewhere; Z99.89 Dependence on other enabling machines and devices
CPT/HCPCS: 95811

== ENCOUNTER 2023-07-04 15:02 | Outpatient (CLI) | payer OTHER, SELFPAY ==
--- NOTE | 2023-07-04 15:04 | CT_ITS ---
FINAL REPORT CLINICAL HISTORY: lung cancer screening former smoker, quit 6 yrs ago 2 ppd x 42 yrs COMPARISON: 07/02/2022 FINDINGS: CT CHEST LOW DOSE SCREENING HISTORY: Screening exam for lung cancer. 62-year-old female, former smoker who quit 6 years ago, 84 pack year smoking history DOSE: CTDIvol: 2.9 mGy, DLP: 98.99 mGy*cm COMPARISON: 07/02/2022. TECHNIQUE: Axial CT without IV contrast administration using low dose protocol FINDINGS: No acute lung disease is present . The previous ovoid nodular density in the posterior right upper lobe has improved since the prior CT of June 2022. There is an ovoid nodule in the posterolateral right upper lobe measuring 13 mm, also stable. There is a subpleural 5 mm right middle lobe nodule, also stable. Changes of emphysema are once again noted. Multiple calcified granulomas are present. No pleural or pericardial effusion is seen . No adenopathy or mass lesion is present . IMPRESSION: Pulmonary nodules stable when compared with prior CT of 07/02/2022. LUNG RADS CATEGORY 2 RECOMMENDATION: 12 month LDCT follow up Reviewed, Interpreted and Dictated by Steven Johnson MD Transcribed by Danielle Pool Authenticated and [facility]
== END 2023-07-04 23:59 ==
LOC: RAD 15:04
PROVIDERS: PCP Family Medicine; Visit Provider Internal Medicine Pulmonary Disease
DX: F17.210 Nicotine dependence, cigarettes, uncomplicated (principal)
CPT/HCPCS: 71271

== ENCOUNTER 2023-09-11 12:47 | Outpatient (CLI) | payer OTHER, SELFPAY ==
[2023-09-11 13:30] VITALS: PULSE 60; PULSE 61
[2023-09-11] MEDS: ALBUTEROL 0.083% 2.5 MG/3 ML NEB IH (13:30)
== END 2023-09-11 23:59 | disposition home or self-care (01) ==
LOC: RT 12:47
PROVIDERS: PCP Family Medicine; Visit Provider Internal Medicine Pulmonary Disease
DX: J44.9 Chronic obstructive pulmonary disease, unspecified (principal)
CPT/HCPCS: 94060; 94618; 94640

== ENCOUNTER 2023-09-13 07:40 | Outpatient (CLI) | payer OTHER, SELFPAY ==
--- NOTE | 2023-09-13 07:43 | CA_ITS ---
FINAL REPORT TECHNIQUE: Color Doppler, duplex Doppler and compression sonography of the right lower extremity venous system was performed. CLINICAL HISTORY: SOB, Varicosities, Sensation in right thigh COMPARISON: None FINDINGS: There is no evidence of deep venous thrombosis from the level of the groin to the calf. The veins are patent and compressible. IMPRESSION: No evidence of deep venous thrombosis right lower extremity. Reviewed, Interpreted and Dictated by Saad Talamantes III, MD Transcribed by Danielle Pool Authenticated and [facility]
== END 2023-09-13 23:59 | disposition home or self-care (01) ==
LOC: RT 07:40
PROVIDERS: PCP Family Medicine; Visit Provider Internal Medicine Pulmonary Disease
DX: M79.89 Other specified soft tissue disorders (principal); R06.02 Shortness of breath
CPT/HCPCS: 93971

== ENCOUNTER 2023-09-23 12:44 | Outpatient (CLI) | payer OTHER, SELFPAY ==
--- NOTE | 2023-09-23 12:48 | XR_ITS ---
FINAL REPORT TECHNIQUE: Chest PA & Lateral CLINICAL HISTORY: cough COMPARISON: None FINDINGS: 2 views of the chest were performed. The heart size is normal. The mediastinum is within normal limits. There is no acute cardiopulmonary process. There are chronic changes in the lung bases bilaterally. There are no pleural effusions. There is no pneumothorax. The bony thorax appears intact. IMPRESSION: No acute cardiopulmonary process. Chronic changes in the lung bases bilaterally. Reviewed, Interpreted and Dictated by Aguilar Brooke MD Transcribed by Danielle Pool Authenticated and [facility]
== END 2023-09-23 23:59 | disposition home or self-care (01) ==
LOC: RAD 12:45
PROVIDERS: PCP Family Medicine; Visit Provider Internal Medicine Pulmonary Disease
DX: J44.9 Chronic obstructive pulmonary disease, unspecified (principal)
CPT/HCPCS: 71046

== ENCOUNTER 2023-12-18 13:54 | Outpatient (CLI) | payer OTHER, SELFPAY | END 2023-12-18 23:59 | disposition home or self-care (01) | LOC: RT 13:55 | PROVIDERS: PCP Family Medicine; Visit Provider Specialist | DX: R09.02 Hypoxemia (principal); G47.34 Idiopathic sleep related nonobstructive alveolar hypoventilation | CPT/HCPCS: 94762 ==

== ENCOUNTER 2023-12-24 09:10 | Outpatient (CLI) | payer OTHER, SELFPAY | END 2023-12-24 23:59 | disposition home or self-care (01) | LOC: RT 09:11 | PROVIDERS: PCP Family Medicine; Visit Provider Internal Medicine | DX: R00.1 Bradycardia, unspecified (principal) | CPT/HCPCS: 93225; 93227 ==

== ENCOUNTER 2024-01-06 15:09 | Outpatient (CLI) | payer OTHER, SELFPAY ==
--- NOTE | 2024-01-06 15:09 | CT_ITS ---
FINAL REPORT TECHNIQUE: Axial images were obtained from the lung apex to the mid abdomen by computed tomography. Coronal and sagittal reformatted images were obtained. This study was performed with techniques to keep radiation doses as low as reasonably achievable, (ALARA). Individualized dose reduction techniques using automated exposure control or adjustment of mA and/or kV according to the patient's size were employed. CLINICAL HISTORY: SOA COMPARISON: 07/04/2023 FINDINGS: This exam was performed using supine inspiratory and expiratory views, as well as prone inspiration views. Severe changes of emphysema are present. There is no evidence of bronchiectasis, interstitial lung disease, or air trapping. No mediastinal mass or adenopathy is identified. No axillary mass or adenopathy is seen.There is no pericardial or pleural effusion. There is a persistent posterolateral right upper lobe opacity, which is stable compared to the prior CT of July 2023. No localized pulmonary inflammatory process is noted. The chest wall is intact.Limited images of the upper abdomen are unremarkable. IMPRESSION: No mass or localized inflammatory process. Reviewed, Interpreted and Dictated by Saad Talamantes III, MD Transcribed by Danielle Pool Authenticated and [facility]
== END 2024-01-06 23:59 | disposition home or self-care (01) ==
LOC: RAD 15:09
PROVIDERS: PCP Family Medicine; Visit Provider Internal Medicine Pulmonary Disease
DX: J84.9 Interstitial pulmonary disease, unspecified (principal); Z87.891 Personal history of nicotine dependence
CPT/HCPCS: 71250

== ENCOUNTER 2024-01-23 10:46 | Outpatient (CLI) | payer OTHER, SELFPAY ==
[2024-01-23 11:18] LABS: Basophils # 0.1 K/mm3 (0-0.2); Basophils % 0.9 % (0.1-2.0); Eosinophils # 0.8 K/mm3 (0.0-0.4); Eosinophils % 7.5 % (0.1-12.0); Hematocrit 46.1 % (37.0-47.0); Hemoglobin 14.9 g/dL (12.2-16.2); Lymphocytes # 2.2 K/mm3 (0.7-4.5); Mean Corpuscular HGB Conc 32.2 g/dL (31.8-35.4); Mean Corpuscular Hemoglobin 30.6 pg (27.0-31.2); Mean Corpuscular Volume 94.9 fl (81-99); Mean Platelet Volume 8.3 fl (7.4-10.4); Monocytes # 0.7 K/mm3 (0.1-1.0); Neutrophils # 7.1 K/mm3 (1.8-7.8); Neutrophils % 65.6 % (37.0-80.0); Platelet Count 228 K/mm3 (142-424); Red Blood Count 4.86 M/mm3 (4.20-5.40); Red Cell Distribution Width 13.5 % (11.5-17.5); White Blood Count 10.8 K/mm3 (4.8-10.8)
[2024-01-23 11:29] LABS: Albumin Level 4.3 g/dl (3.5-5.0); Chloride 108 mmol/L (98-107)
[2024-01-23 11:30] LABS: Potassium 3.7 mmoL/L (3.5-5.1); Sodium 141 mmol/L (136-145)
[2024-01-23 11:32] LABS: Alanine Aminotransferase 26 U/L (12-78); Anion Gap 11.7 mEq/L (5-15); Aspartate Amino Transferase 21 U/L (14-36); Bilirubin,Unconjugated 0.2 mg/dL (0.0-1.1); Blood Urea Nitrogen 8 mg/dl (7-17); Carbon Dioxide 25 mmol/L (22.0-30.0); Cholesterol 116 mg/dl (140-200); Estimated Glomerular Filt Rate 125 ml/min (>60); GFR (African American) 151 ML/MIN (>60); Triglycerides 170 mg/dl (30-150); VLDL Cholesterol 34 mg/dL (0-40)
[2024-01-23 11:33] LABS: Alkaline Phosphatase 100 U/L (38-126); Bilirubin,Direct 0.4 mg/dl (0.0-0.4); Bilirubin,Indirect 0.2 mg/dL (0.0-0.9); Bilirubin,Total 0.6 mg/dl (0.2-1.3); Calcium 9.4 mg/dl (8.4-10.2); Chol/HDL Ratio 2.9 (1-3.5); Glucose 146 mg/dl (74-100); HDL Cholesterol 40 mg/dl (40-60); Magnesium 2.1 mg/dl (1.6-2.3)
[2024-01-23 11:44] LABS: Direct LDL Cholesterol 50.24 mg/dL (100-129)
[2024-01-23 11:49] LABS: Free T4 (Free Thyroxine) 0.75 ng/dl (0.78-2.19)
== END 2024-01-23 23:59 | disposition home or self-care (01) ==
PROVIDERS: PCP Family Medicine; Visit Provider Physician Assistant
DX: R07.9 Chest pain, unspecified (principal); I27.21 Secondary pulmonary arterial hypertension; R06.09 Other forms of dyspnea; R00.1 Bradycardia, unspecified; M79.89 Other specified soft tissue disorders; J44.9 Chronic obstructive pulmonary disease, unspecified; I48.0 Paroxysmal atrial fibrillation; E11.9 Type 2 diabetes mellitus without complications; I47.10 Supraventricular tachycardia, unspecified; I51.89 Other ill-defined heart diseases; I10 Essential (primary) hypertension; Z68.30 Body mass index [BMI] 30.0-30.9, adult; Z79.4 Long term (current) use of insulin; Z01.810 Encounter for preprocedural cardiovascular examination
CPT/HCPCS: 36415; 80048; 80061; 80076; 83735; 84439; 84443; 85025

== ENCOUNTER 2024-02-05 08:24 | Day surgery (SDC) | payer OTHER, SELFPAY ==
[2024-02-05] VITALS (9 sets, daily range): BP systolic 123–176; BP diastolic 58–79; PULSE 63–80; RESP 18–19; O2SAT 90–96; BMI 28.9
--- NOTE | 2024-02-05 07:14 | IR_ITS ---
APPROVED REPORT Patient Location: Outpatient Machine Coil Assembler: MAYO Cuenca RT (R) PROCEDURES Right heart catheterization Left heart catheterization Selective coronary angiogram Left ventriculogram FFR angiography to the LAD INDICATION Preoperative evaluation for lung transplantation, Angiographic ambiguous coronary artery disease, Pulmonary hypertension, Informed consent was obtained prior to the procedure. COMPLICATIONS NONE Estimated Blood Loss: LESS THAN 10 ML TECHNIQUE One percent lidocaine was used to anesthetize the right anterior aspect of the right wrist. The right radial artery was accessed via the Seldinger technique and a 6 Scottish hydrophilic sheath was placed in the right radial artery. Following this one percent lidocaine was used to anesthetize the right anterior aspect of the right neck. The right internal jugular vein was accessed via the Seldinger technique and a 7 Scottish sheath was placed in the right internal jugular vein. Following this an arterial cocktail was administered using 5000U heparin, 2.5 mg verapamil, 1mg Lidocaine and 800mcg nitroglycerin into the right radial sheath. A papa catheter was used to perform left heart catheterization left ventriculogram and selective coronary angiography while a [place] catheter was used to perform right heart catheterization. Saturations were obtained in the pulmonary artery and right atrium. At the end of the procedure the arterial sheath was removed good hemostasis was achieved using Traclet band. At the end the diagnostic angiogram FFR angiography via cath works was performed which demonstrated the LAD had an FFR index of 0.91. Given this did not meet hemodynamic significance the apparatus was removed the radial sheath was removed and hemostasis was achieved using TR banding patient was transferred to the postop putting in stable condition for right IJ sheath removal ANGIOGRAPHIC RESULTS The left main artery Normal The left anterior descending artery Has proximal 10% luminal regularities followed by a mid vessel concentric 40% stenosis which produced an FFR index of 0.91. The first diagonal artery is small to medium in size and has mid vessel tandem 40% stenosis The circumflex artery Nondominant and has proximal 10% stenosis with a mid vessel concentric 20 to 30% stenosis The right coronary artery Is dominant and has proximal 20 to 30% stenosis mid vessel concentric 30% stenosis and distal 10 to 20% stenoses The PINEDA ventriculogram reveals Normal 65% The left ventricular end-diastolic pressure Less than 10 mmHg Right atrial pressure 5 mmHg Pulmonary artery pressure 27/10 mmHg Pulmonary occlusion pressure 8 mm Right atrial saturation 78% Pulmonary artery saturation 79% Aortic saturation 96% Hemoglobin 15.4 Cardiac output 6.7 L/min via Fiordaliza IMPRESSION Nonflow limiting coronary disease as described above Normal intracardial pulmonary filling pressures Normal ejection fraction PLAN 1. Patient is an acceptable risk from a cardiovascular standpoint to proceed with double lung transplantation evaluation 2. Continue risk factor modification for established coronary artery disease Electronically signed by : Austin Davis MD 02/05/2024 14:12:21
[2024-02-05 09:26] LABS: Basophils # 0.2 K/mm3 (0-0.2); Basophils % 1.6 % (0.1-2.0); Eosinophils # 0.5 K/mm3 (0.0-0.4); Hematocrit 47.6 % (37.0-47.0); Hemoglobin 15.4 g/dL (12.2-16.2); Lymphocytes # 3.1 K/mm3 (0.7-4.5); Lymphocytes % 33.2 % (10-50); Mean Corpuscular HGB Conc 32.4 g/dL (31.8-35.4); Mean Corpuscular Hemoglobin 31.1 pg (27.0-31.2); Mean Platelet Volume 8.5 fl (7.4-10.4); Monocytes # 0.5 K/mm3 (0.1-1.0); Monocytes % 5.2 % (1.7-9.3); Neutrophils # 5.1 K/mm3 (1.8-7.8); Platelet Count 320 K/mm3 (142-424); Red Blood Count 4.95 M/mm3 (4.20-5.40); Red Cell Distribution Width 13.3 % (11.5-17.5); White Blood Count 9.3 K/mm3 (4.8-10.8)
[2024-02-05 09:47] LABS: Chloride 107 mmol/L (98-107); Potassium 4.7 mmoL/L (3.5-5.1); Sodium 139 mmol/L (136-145)
[2024-02-05 09:50] LABS: Anion Gap 11.7 mEq/L (5-15); Blood Urea Nitrogen 11 mg/dl (7-17); Calcium 9.3 mg/dl (8.4-10.2); Carbon Dioxide 25 mmol/L (22.0-30.0); Creatinine Clearance Estimated 72 mL/min (50-200); Estimated Glomerular Filt Rate 125 ml/min (>60); GFR (African American) 151 ML/MIN (>60); Glucose 110 mg/dl (74-100)
[2024-02-05] MEDS: MIDAZOLAM HCL 1MG/1ML 5ML VIAL 1 MG IV (12:02)
[2024-02-05] MEDS: LIDOCAINE 1% 10ML MDV 20 ML IJ (12:02)
[2024-02-05] MEDS: HEPARIN 1,000 UNITS/ML 10ML VIAL (CATH LAB) 10000 UNIT IV (12:02)
[2024-02-05] MEDS: 0.9 % SODIUM CHLORIDE 500 ML 25 ML IV (12:03)
[2024-02-05] MEDS: diphenhydrAMINE 50MG/ML VIAL 50 MG IV (12:03)
[2024-02-05] MEDS: FENTANYL 100MCG/2ML VIAL 50 MCG IV (12:03)
[2024-02-05] MEDS: VERAPAMIL 2.5MG/ML 2ML VIAL 2.5 MG IV (12:03)
[2024-02-05] MEDS: HEPARIN 1,000 UNITS/500ML NS (CATH LAB) 3000 UNIT IV (12:04)
[2024-02-05] MEDS: NITROGLYCERIN 800MCG/8ML SYR (CATH LAB) 800 MCG IA (12:12)
[2024-02-05] MEDS: IOPAMIDOL-370 (76%);100ML BOTTLE 60 ML IV (15:24)
[2024-02-05 15:27] LABS: CATHL Arterial O2 SAT 79.3 % (90-100); CATHL Venous O2 SAT 78.7 % (75-80)
== END 2024-02-05 14:36 | disposition home or self-care (01) ==
PROVIDERS: PCP Family Medicine; Visit Provider Internal Medicine
DX: I27.20 Pulmonary hypertension, unspecified (principal); Q24.5 Malformation of coronary vessels; I48.0 Paroxysmal atrial fibrillation; J96.11 Chronic respiratory failure with hypoxia; Z79.899 Other long term (current) drug therapy; Z99.81 Dependence on supplemental oxygen
CPT/HCPCS: 80048; 82810; 85025; 93460; 93571; 99152; 99153; C1725; C1769; C1894; J1200; J1644; J2250; J3010; Q9967

== ENCOUNTER 2024-02-07 08:02 | Outpatient (CLI) | payer OTHER, SELFPAY ==
--- NOTE | 2024-02-07 08:05 | CA_ITS ---
APPROVED REPORT EXAM: Comprehensive 2D, Doppler, and color-flow Echocardiogram Federal Agent: FILEMON Acuna, RVS Ht: 5 ft 5 in Wt: 174lbs BSA: 1.86 BP: 156/70 mmHg Indications: CP, SOA, Pre-op for lung transplant, COPD, Ex-smoker, HLD, SOA, O2 dependent Echo Enhancing Agent Comments: Poor acoustics throughout due to lung impedence 2D Dimensions Aortic Root 2.84 cm LA Volume 28.80 mL Left Atrium 2.91 cm LA Volume Index 15.50 mL/m2 (M/F) 16-34 RVID Base (AP4) 2.90 cm (M/F) 2.5-4.1 EF AP4 43.10 % LVOT 1.90 cm (M/F) 1.5-2.5 GL Strain -20.7 % M-Mode Dimensions RVDd 2.39 cm (0.9-2.6) LVDd 4.18 cm (3.5-5.7) Ao Diam 2.93 cm (2.0-3.7) LVDs 2.43 cm (3.5-5.7) IVSd 0.72 cm (0.6-1.1) PWd 1.06 cm (0.6-1.1) EF (Teich) 73.20% EPSs 0.53 cm FS 41.90% EDV (Teich) 77.70 mL ESV (Teich) 20.80 mL LV Diastology E Decel Time 264 (160-240 msec) E/A Ratio 0.80 MED E' 8.9 (>= 7 cm/sec) MED A' 10.00 cm/s E'/MED E' Ratio 7.81 (<= 14) LAT E' 7.2 (>= 10 cm/sec) LAT A' 9.30 cm/s E/LAT E' Ratio 9.65 (<= 14) Aortic Valve LVOT Max 93.0 (70-110 cm/s) CHELSEY Index 0.91 cm2/m2 LVOT VTI 21.00 cm AoV Peak Suman. 151.0 (50-130 cm/s) AO Mean GR. 5.50 (<5 mmHg) AO VTI 35.0 (18-25 cm) CHELSEY (VTI) 1.70 (2.5-4.5 cm2) Mitral Valve MV E Max Suman. 69.0 (40-130 cm/s) MV A Velocity 87.0 (40-130 cm/s) E/A Ratio 0.80 MV Decel. Time 264 (160-240 ms) Tricuspid Valve TR P. Velocity 238.00 cm/s Left Ventricle The left ventricle is normal size. The left ventricular systolic function is normal. The left ventricular ejection fraction is within the normal range. There is increased LV wall thickness. There is normal LV segmental wall motion. The left ventricular diastolic function is normal. LVEF is 55%. Right Ventricle The right ventricle is mildly dilated. The right ventricular systolic function is normal. Atria The left atrium size is normal. The right atrium size is normal. There is no Doppler evidence of interatrial shunt. Aortic Valve The aortic valve is mildly thickened. There is no aortic valvular stenosis. No aortic regurgitation is present. Mitral Valve The mitral valve is normal in structure. No evidence of mitral valve stenosis. Trace mitral valve regurgitation noted. Tricuspid Valve The tricuspid valve leaflets are thin and pliable. Trace tricuspid regurgitation. There is insufficient TR jet to estimate RVSP. Pulmonic Valve The pulmonary valve is normal in structure. Trace pulmonic regurgitation. Great Vessels The aortic root is normal in size. The ascending aorta is normal in size. IVC is normal in size and collapses >50% with inspiration. Pericardium There is no pericardial effusion. Other Information Study Quality: Technically Difficult Conclusion Technically difficult study due to poor acoustic windows. Normal biventricular systolic function. Mild RV dilation. No significant valvular stenosis or regurgitation. Electronically signed by : Loida Meng MD 02/12/2024 11:39:50
== END 2024-02-07 23:59 | disposition home or self-care (01) ==
LOC: RT 08:03
PROVIDERS: PCP Family Medicine; Visit Provider Physician Assistant
DX: I48.0 Paroxysmal atrial fibrillation (principal); I51.89 Other ill-defined heart diseases
CPT/HCPCS: 93306

== ENCOUNTER 2024-07-08 11:52 | Outpatient (CLI) | payer OTHER, SELFPAY ==
--- NOTE | 2024-07-08 11:59 | XR_ITS ---
FINAL REPORT TECHNIQUE: Chest PA & Lateral CLINICAL HISTORY: SOB-- COPD COMPARISON: 09/23/2023 FINDINGS: 2 views of the chest were performed. The heart size is normal. The mediastinum is within normal limits. There is no acute cardiopulmonary process. Large lung volumes are present along with changes of centrilobular emphysema. There are no pleural effusions. There is no pneumothorax. The bony thorax appears intact. IMPRESSION: Changes of centrilobular emphysema are present, without acute cardiopulmonary process. Reviewed, Interpreted and Dictated by Aguilar Brooke MD Transcribed by Danielle Pool Authenticated and [facility]
== END 2024-07-08 23:59 | disposition home or self-care (01) ==
LOC: RAD 11:52
PROVIDERS: PCP Family Medicine; Visit Provider Internal Medicine Pulmonary Disease
DX: R06.02 Shortness of breath (principal)
CPT/HCPCS: 71046

== ENCOUNTER 2024-11-16 15:39 | Outpatient (CLI) | payer OTHER, SELFPAY ==
--- OUTSIDE RECORDS SUMMARY | 2024-09-17 09:30 | XMS_ITS | Encounter Summary ---
Author Organization [facility] Address [address] [place] [address] Care Team Providers Care Bellperson Name Role Phone Maximiliano Moreira MD Primary Care Provider [phone] Reason for Referral * Consultation (Routine) - Closed Specialty Diagnoses / Procedures Referred By Zurdo aguirre Referred To Contact Endocrinology Diagnoses Type 2 diabetes mellitus with hyperglycemia, with long-term current use of insulin ([facility]) Sobia Kincaid APRN [address] [address] Phone: tel: fax: Deuce Lofton, PharmD [address] [address] Phone: tel: fax: Referral ID Status Reason Start Date Expiration Date Visits Re quested Visits Authorized [id number] Closed 09/17/2024 03/19/2026 1 1 Reason for Visit * Reason Comments Diabetes * Consultation (Routine) - Closed Specialty Diagnoses / Procedures Referred By Zurdo t Referred To Contact Endocrinology Diagnoses Type 2 diabetes mellitus with hyperosmolarity without coma, unspecified whether nursing home insulin use ([facility]) Sobia Kincaid APRN [address] [id number] Phone: tel: fax: [facility] Endocrinology [address] [place] [address] Phone: tel: fax: Referral ID Status Reason Start Date Expiration Date Visits Re quested Visits Authorized [id number] Closed 09/09/2024 03/11/2026 1 1 Encounter Details Date Type Department Care Team (Late st Contact Info) Description 09/17/2024 9:30 AM EDT [facility] [address] [place] [address] Deuce Lofton, PharmD [address] [address] Type 2 diabetes mellitus with hyperglycemia, with long-term current use of insulin ([facility]) Social History Tobacco Use Types Packs/Day Years Used Date Smoking Tobacco: Former Cigarettes 2 - 1968 Smokeless Tobacco: Never PHQ-2 Answer Date Recorded Patient Health Questionnaire-2 Score 0 09/01/2024 Comments Unknown Sex and Gender Information Value Date Recorded Sex Assigned at Female 01/20/2024 2:26 PM EDT Legal Sex Female 7:34 PM EDT Gender Identity Female 01/20/2024 2:26 PM EDT Sexual Orientation Straight 01/20/2024 2: 26 PM EDT documented as of this encounter Last Filed Vital Signs Vital Sign Reading Time Taken Comments Blood Pressure 115/80 09/17/2024 9:31 AM EDT Pulse 87 09/17/2024 9:31 AM EDT Temperature - - Respiratory Rate - - Oxygen Saturation - - Inhaled Oxygen Concentration - - Weight 79.3 kg (174 lb 13.2 oz) 09/17/2024 9:31 AM EDT Height - - Body Mass Index 33.03 09/01/2024 9:14 AM EDT documented in this encounter Miscellaneous Notes * Patient Instructions - Deuce Lofton, PharmD - 09/17/2024 9:30 AM EDT - continue Toujeo 50 units nightly - continue Novolog 3 units before meals + correction below Javier Glass [id number] 09/17/24 Insulin Correction Scale 1:30 One unit of __Novolog will lower your blood sugar 30 mg/dl. Blood Sugar Reading (mg/dl) Correction Insulin Dose 150-180 mg/dl 1 unit 181-210 2 units 211-240 3 units 241-270 4 units 271-300 5 units 301-330 6 units 331-360 7 units 361-390 8 units 391-420 9 units 421-450 10 units >450 11 units If your blood sugar consistently stays above 250, please contact the Diabetes Team at [phone]. * Progress Notes - Deuce Lofton, PharmD - 09/17/2024 9:30 AM EDT Images from the original note were not included. Subjective Javier Glass is a 63 y.o. female who presents to the [facility] medication adjustment clinic for follow up evaluation of Diabetes Mellitis Type 2. PMH: COPD (lung pre-transplant eval), hypothyroidism,HTN, HLD, hx of smoking (quit 2017) HPI Last visit with endocrinology provider Sobia Kincaid APRN on 09/09/24, most recent A1c 7.2% on 08/13/24. Changes made at last visit include: stopping Farxiga and Ozempic and start CGM. Patient was diagnosed in 2019. Current symptoms/problems include none. Patient reports she is doing pretty well over all today. She says her oxygen has dropped low sometimes but she feels her blood sugars have been looking great overall. She reports taking 2 multivitamins and states they are helping keep her sugars lower. She states the Malinda CGM had a lot of issues with connectivity [place] She has received the Dexcom abatement worker and should be getting the sensors on Saturday. She does report some GI upset (hard abdomen, slowed bowel movements, and bloating) but she states she previously had colon surgery and has had these GI issues prior to starting insulin. She is currently using Miralax daily with endorsed benefit. Vitamins pt reports taking: Vidabotan Vitamin B2-riboflavin 400 mg with Mg & CoQ10 (1 daily)- unable to add to med list (unable to find) Alive for women +50 (multivitamin) Current treatment includes: - Insulin glargine u-300 (Toujeo) 50u PM - taking at 8PM - Insulin aspart (Novolog) 3u TID AC + 1:30>150 SS - usually taking 3 units, has only needed to add CF ~ 3-4 times since last visit Medication adherence: patient endorses no missed doses. Previous DM therapy: Deandra and Cherelle (SE and plans for lung transplant) Patient monitors blood glucose at home 4 times per day including checking FBG at 4:30-5AM and 15 minutes before meals. Pt to start dexcom once received in the mail. Hypoglycemia: since last visit: denied any lows. Lowest has been 96 when checking BG. Sensor Type: has OneTouch meter at home but plans to switch to Dexcom 09/21/24 Interpretation: Blood sugars are overall well controlled with 85% time in target range with occasional highs in the low 200s. Current diet: 3 meals daily, no snacks, aiming for 1200 calories (getting >900 calories), 70 grams protein (getting >50 g), eating yogurt, granola, Aim for 30-40g carbs TID, <15g snacks Breakfast: 7:30 PM: yogurt with granola, shakes (premier 30) Lunch: 12-1PM: usually not hungry; soup (cabbage; Swamp soup- greens and white beans) Dinner: 6PM: meats (chicken) and vegetables (beans and greens, broccoli, asparagus; avoids pasta, and potatoes- sometimes will eat sweet potatoes and baby Gold potatoes) Snacks: does not snack much, peanuts if she does Beverages: protein shakes (2/day), coffee (usually creamer- sugar free, sometimes adds a little sugar), water (yaniv and cucumber infused) Physical activity: limited with O2 use, been to one appointment with pulmonary rehab - doing exercises with them (will start seeing 3x week starting on 09/22) Complications & Comorbidities: HTN: metoprolol tartrate 75mg BID, spironolactone 25mg daily - managed by PCP Dyslipidemia: (+) on atorvastatin 10mg daily; last LDL 67 on 03/2024 - managed by PCP ASCVD: (-) Retinopathy: (-) last eye exam 09/2024 Neuropathy: (+) monofilament exam 09/09/24; hx of ulcers/sores Nephropathy: last eGFR 101 on 09/01/24 Hypothyroidism: LT4 100 mcg qAM; TSH WNL 03/2024 - managed by PCP Immunizations: (+) flu, (+) PPSV, (+) COVID Immunization History Administered Date(s) Administered Moderna COVID-19 Vaccine ([employer]) 12+ years 08/04/2020, 09/01/2020, 04/19/2021 The following portions of the chart were reviewed this encounter and updated as appropriate: Allergies Meds Review of Systems Cardiovascular: Negative for chest pain. Gastrointestinal: Positive for abdominal distention. Endocrine: Negative for polydipsia, polyphagia and polyuria. Neurological: Negative for light-headedness and headaches. Objective Visit Vitals BP 115/80 Pulse 87 Wt 79.3 kg (174 lb 13.2 oz) BMI 33.03 kg/m?? Smoking Status Former BSA 1.85 m?? Physical Exam Lab Review Hemoglobin A1c (%) Date Value 03/18/2024 7.1 (H) eGFRcr (mL/min/1.73m*2) Date Value 09/01/2024 101.0 LDL, Calculated (mg/dL) Date Value 03/18/2024 67 Triglycerides, Plasma (mg/dL) Date Value 03/18/2024 149 HDL (mg/dL) Date Value 03/18/2024 45 (L) Thyroid Stimulating Hormone, Plasma (uIU/mL) Date Value 03/18/2024 2.61 Assessment/Plan Problem List Items Addressed This Visit None Visit Diagnoses Type 2 diabetes mellitus with hyperglycemia, with long-term current use of insulin ([facility]) Relevant Orders Follow Up [facility] Diabetes Mellitis Type 2 - A1c at goal. Given overall well-controlled blood sugars, would recommend to continue current regimen. Will continue with insulin therapy as patient is being evaluated for lung transplant. Discussedwith patient to contact [facility] if concerns with setting up Dexcom once sensors are obtained next week. Patient endorses understanding and agreed with plan. Medication changes today: none Medications to continue: - Insulin glargine u-300 (Tujeo) 50u PM - Insulin aspart (Novolog) 3u TID AC + 1:30>150 SS - Reviewed signs and symptoms of hypoglycemia, prevention, and treatment (Rule of 15). - Monitor blood glucose QID with home meter until CGM placement. Complications & Preventative Care - Did not discuss immunizations in depth at appointment. - HTN & HLD - continue current regimen - managed by PCP - Continue annual eye appointments - Continue checking feet daily for wounds/ulcers/sores Follow up: in 6 weeks with [facility]; with Sobia Kincaid at appointment scheduled on 12/31/24 The following Diabetes education was reviewed: [x]SBGM to evaluate dose needs [x]Insulin coverage with carbohydrate intake []Site rotation [] Exercise impact on glucose levels []Driving safety related to diabetes []Sick day management []Ketone testing []Over treatment of hypoglycemia [x] Hypoglycemia management [x]Call-in line use []Insulin pump pros and cons [x]Sensor home use []Pump class offerings []Clarissa phenomena []Somogyi effect [] Alcohol related to diabetes []Benefits of written records [x]Pre-meal Bolusing [x]Daily foot care [x] Healthy diet and regular exercise [x]Long-term complications related to poor diabetes management [] Injection timing related to changes in activity/exercise I personally spent a total of 30 minutes on this encounter. This time includes face to face with patient, counseling and discussion and/or coordination of care. Deuce Lofton, PharmD [facility] [address], [address] [facility] [phone] documented in this encounter Plan of Treatment Upcoming Encounters Date Type Department Care Team (Late st Contact Info) Description 11/18/2024 10:30 AM EDT Office Visit [facility] Pulmonary Rehab [address] [place] [address] 11/23/2024 10:30 AM EDT Office Visit [facility] [address] [place] [address] 11/25/2024 10:30 AM EDT Office Visit [facility] Pulmonary Rehab [address] [place] [address] 11/26/2024 8:00 AM EDT Office Visit [facility] Endocrinology [address] [place] [address] Deuce Lofton, PharmD [address] [address] 11/30/2024 10:30 AM EDT Office Visit [facility] Pulmonary Rehab [address] [place] [address] 12/31/2024 8:40 AM EDT Office Visit [facility] Endocrinology [address] [place] [address] Sobia Kincaid, ELECTION SUPERVISOR [address] [address] Scheduled Referrals Name Type Priority Associated Diagnoses Orde r Schedule Follow Up [facility] Outpatient Referral Routine Type 2 diabetes mellitus with hyperglycemia, with long-term current use of insulin (CMS/HCC) Expected: 10/29/2024, Expires: 10/17/2025 documented as of this encounter Visit Diagnoses Diagnosis Type 2 diabetes mellitus with hyperglycemia, with long-term current use of insulin (CMS/HCC) documented in this encounter Additional Health Concerns Assessment Noted Time A fall risk assessment has been complete d for the patient 09/01/2024 9:20 AM EDT A Body Mass Index follow-up plan has been documented for the patient 09/17/2024 12:43 PM EDT documented as of this encounter Care Teams Bellperson Relationship Specialty Start Date End Date Maximiliano Moreira MD [address] [place] [address] PCP - General 01/20/24 documented as of this encounter
--- OUTSIDE RECORDS SUMMARY | 2024-09-21 09:40 | XMS_ITS | Encounter Summary ---
Author Organization [place] [address] Care Team Providers Care Commercial Roofing Estimator Name Role Phone Unavailable Primary Care Provider Unavailabl e Reason for Visit * Reason Comments HVF Encounter Details Date Type Department Care Team (Latest Contact Info) Description 09/21/2024 9:40 AM EDT Office Visit [facility] [address] [place] [address] Christianne Montana, EMILY [address] [place], [place] [id number] Blurred vision, bilateral (Primary Dx); Blepharitis of upper and lower eyelids of both eyes, unspecified type; Keratoconjunctivitis sicca of both eyes not specified as Sjogren's; Unspecified visual field defects; Myopia with astigmatism and presbyopia, bilateral; Age-related nuclear cataract of both eyes; 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 Social History Tobacco Use Types Packs/Day Years Used Date Smoking Tobacco: Former Cigarettes Q uit: 12/21/1979 Smokeless Tobacco: Never Alcohol Use Standard Drinks/Week Comments Never 0 (1 standard drink = 0.6 oz pur e alcohol) AUDIT-C Answer Date Recorded Frequency of Alcohol Consumption Never 12/21/2019 Average Number of Drinks Not on file 020 Frequency of Binge Drinking Not on file 12/02 Comments Unknown Sex and Gender Information Value Date Recorded Sex Assigned at Not on file Legal Sex Female 8:01 PM EDT Gender Identity Not on file Sexual Orientation Not on file documented as of this encounter Progress Notes * Christianne Montana OD - 09/21/2024 9:40 AM EDT Subjective: Patient ID: Javier Glass is a White or 63 y.o.female. 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 She notes that her dry eye regimen is working and her glasses are doing well. She rarely notices the visual field defect she discussed at previous visits. Educated and reassured. Continue with drops, lid scrubs, and hot compresses. Patient requested manifest refraction and new prescription today. Released new SRx (PALS). Educated on adaptation and visual hygiene (20/20/20 rule). Patient aware to call with worsening or persistent symptoms. OCT nerve stable 03/2024 HVF 30-2 nasal defects OD, clear OS 09/2024 - different than previous ramirez Fundus photos 09/2024 - stable 09/2022 Patient was not dilated due to nature of exam. Orders: - COLOR FUNDUS PHOTOGRAPHY - OU - BOTH EYES Return in about 1 year (around 09/21/2025) for OCT,DFE. Chief Complaint Patient presents with ??? HVF HPI Pt states her vision is good OU. She denies changes. Pt said her eyes are feeling better; she has been using Systane 2-3 times a day. Pt see floaters occasionally. Pt is not having any other concernstoday. Patient has been approved for a transplant - they expect a possible donor between 3-6 months. Patients past medical, family and social histories were reviewed and updated. There were no changesexcept as noted. ROS Positive for: Eyes Negative for: Constitutional, Gastrointestinal, Neurological, Skin, Genitourinary, Musculoskeletal,HENT, Endocrine, Cardiovascular, Respiratory, Psychiatric, Allergic/Imm, Heme/Lymph Objective: Eye Exam: Base Eye Exam Visual Acuity (Snellen - Linear) Right Left Dist cc 20/20 20/25 -2 Correction: Glasses Tonometry (I-care, 10:24 AM) Right Left Pressure 13 13 Pupils Dark Light Shape React APD Right 4 2 Round Brisk None Left 4 2 Round Brisk None Visual Ramirez Right Left Full Full Extraocular Movement Right Left Full, Ortho Full, Ortho Neuro/Psych Oriented x3: Yes Mood/Affect: Normal Slit Lamp and Fundus Exam External Exam Right Left External Brow ptosis Brow ptosis Slit Lamp Exam Right Left Lids/Lashes Makeup, thickened margins, full lid closure, thick meibum Makeup, thickened margins, full lid closure, thick meibum Conjunctiva/Sclera Pingecula, (+) stain Pingecula, (+) stain Cornea (-) stain, 2s TBUT, LG (-) stain, 2s TBUT, LG Anterior Chamber Deep and quiet Deep and quiet Iris (-) NVI, brown (-) NVI, brown Lens 1+ NS 1+ NS Anterior Vitreous Vitreous syneresis Vitreous syneresis Fundus Exam Right Left Disc (-) NVD, shallow, laminar dots, tilted (-) NVD, shallow, laminar dots, tilted C/D Ratio 0.20 0.20 Macula (-) DME (-) DME Vessels (-) NVE (-) NVE Periphery Fundus photos Fundus photos Refraction Wearing Rx Sphere Cylinder [place] Add Right -2.50 -0.50 180 +2.25 Left -1.75 -1.25 015 +2.25 Type: PALS Manifest Refraction Sphere Cylinder [place] Dist [place] Add Right -2.25 -0.25 180 20/20+1 +2.50 Left -2.25 -0.75 015 20/20-3 +2.50 Final Rx Sphere Cylinder [place] Add Right -2.25 -0.25 180 +2.50 Left -2.25 -0.75 015 +2.50 Type: PALS Expiration Date: 09/21/2026 Procedure: Hunter Visual Field - OU - Both Eyes Patient is here for follow up imaging. Notes 30-2 OD,OS Reliable Yes, No GHT ONL,WNL VFI 97%, 99% MD -2.73, -0.70 PSD 3.55, 1.71 nasal rim defects OD,clear OS Color Fundus Photography - OU - Both Eyes Patient is here for follow up imaging. documented in this encounter Miscellaneous Notes * Patient Instructions - Christianne Montana, OD - 09/21/2024 9:40 AM EDT -Continue OTC tears one drop, two-four times/day both eyes -Start lid scrubs one-two times/day - formulations with tea-tree oil or hypochlorous acid -Start hot compresses with lid massage one-two times/day Dry Eye Syndrome Dry eye syndrome is a chronic condition, in which your body does not produce enough tears and/or your tears evaporate too quickly. Symptoms vary and can include a gritty feeling or foreign body sensation, stinging, burning or excessive watering. It can also make your vision blurry. There are several treatment options available. For maximum relief, I recommend performing these treatments daily andsticking with your routine. 1) Hot compresses with lid massage. Take a clean sock and fill it with uncooked rice. Tie the sock and place in microwave for 30-45 seconds. Once it is hot, lay the sock over your closed eyelids (do not burn yourself) and let it rest there for several minutes. Then, massage your upper and lower lids at the lash line. You are expressing your warm oils onto the front surface to allow your tears to evaporate less frequently, which will help keep your eyes hydrated. 2) Lid scrubs. It is important to keep your lids free of any debris, which may contain bacteria andcause inflammation. You can buy branded lid scrubs, such as Ocusoft, and use as directed on the box. Other options include Ivizia or Noveha Tea Tree Lid Wipes, which can be found on [employer]. Cliradex,a foam cleanser and/or wipe, which can be purchased online can also be used. Some ingredients that are helpful with inflammation include tea tree oil or hypochlorous acid. A home remedy is to use baby shampoo, or eye-friendly shampoo, apply on your clean fingers or a cotton swab and scrub your lidsand lashes daily. 3) Rdlc-peg-eenhyhp eye drops. There are a lot of products available to manage dry eye symptoms. Myfavorite brands are Refresh Relieva and Systane Complete. These can be used up to 4 times/day. If you are dosing more than that, you should switch to a non-preserved option, which will come in singledose vials and can be used as often as necessary. Avoid any drops that say ???get the red out,?? such as Visine, Clear Eyes, or Rohto. You can also use a gel or ointment at night to increase coverage while you are sleeping, such as Refresh PM or Systane Night. 4) Fish Oil Supplements. In recent studies, omega-3 fatty acids have been shown to reduce the symptoms of dry eye syndrome. The important ingredients include DHA and EPA - at least 2000 units. You can use an OTC supplement or include more fish products in your diet. [employer] produces DE3 omega supplement, which can be purchased online, and is a quality product. Another product is blink Nutritears, which is also specific for dry eye. Before starting a new supplement, please check in with your PCP. 5) Prescription medications. In some instances, there are prescription medications that can be usedto improve tear production and decrease inflammation. However, they can be pricey if insurance doesn???t cover the medication, and in some cases, you have to prove other treatments aren???t successful before insurance will cover them. The available options in an eye drop include Restasis, Xiidra, Cequa, Vevye and Xdemvy (specifically for demodex blepharitis related dry eye). Also available is a nasal spray that can stimulate tear production called Tyrvyra. Lastly, Miebo can improve tear evaporation. 6) Punctal plugs. We can use dissolvable or non-dissolvable plugs to occlude your drainage system that flows from your eyes to your nose. This can increase the amount of tears on your ocular surface by decreasing the amount of tears draining. This is a simple, in-office procedure with minimal risks. If plugs are beneifical, you can also have cautery performed by my oculoplastic specialist to permanently close the drainage system. 7) iLux2 treatment. This is a handheld, in-office device that uses localized LED light energy to soften the oils in your meibomian glands. With magnification and direct visualization, we can focus oncertain areas to apply manual compression and express your glands. Both upper and lower eyelids aretreated and the entire process takes about 15 minutes. It is not covered by insurance and costs $600 for the treatment. This can be repeated every 6-12 months and may reduce the amount of OTC treatment done at home. 8) IPL treatment. This is an in-office treatment which targets inflammation around the eyes, in turn, improving the inflammation of the meibomian (oil) glands. This can significant improve symptoms and signs. Initially, four treatments are completed every 4-6 weeks, then done yearly. It is not covered by insurance and costs $1800 for the series of 4, and then $600 for yearly treatments. This can also be done on the entire face. In summary, this can be a mstjq-wii-ahntu process to find what routine and products work best for you. We cannot cure dry eye, but we can treat effectively to allow you to be asymptomatic. 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 us Christianne Montana OD OPHTHALMOLOGY SERVICES ORDERA BLES Final Result SEP OFFICE * HUNTER VISUAL FIELD - OU - BOTH EYES (09/21/2024 11:11 AM EDT) Narrative SEP OFFICE - 09/21/2024 11:11 AM EDT Patient is here for follow up imaging. Notes 30-2 OD,OS Reliable Yes, No GHT ONL,WNL VFI 97%, 99% MD -2.73, -0.70 PSD 3.55, 1.71 nasal rim defects OD,clear OS Christianne Nahtdenita OD OPHTHALMOLOGY SERVICES ORDERA BLES Final Result SEP OFFICE documented in this encounter Visit Diagnoses Diagnosis Blurred vision, bilateral- Primary Other specified visual disturbances Blepharitis of upper and lower eyelids of both eyes, unspecified type Keratoconjunctivitis sicca of both eyes not specified as Sjogren's Keratoconjunctivitis sicca, not specified as Sjogren's Unspecified visual field defects Myopia with astigmatism and presbyopia, bilateral Age-related nuclear cataract of both eyes 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 budesonide (PULMICORT) 0.25 mg/2 mL Inhl Suspension for Nebulization Take 1 Ampule by nebulization 2 times daily. insulin aspart protamine-insulin aspart (NOVOLOG MIX 70/30) 100 unit/mL (70-30) SubQ Insulin Pen Subcutaneous (Inject under the skin) 100 Units 2 times daily (with meals). added in this encounter Eye Exam Visual Acuity (Snellen - Linear) Right eye Left eye Dist cc 20/20 20/25 -2 Correction: Glasses Tonometry (I-care, 10:24 AM) Right eye Left eye Pressure 13 13 Pupils Dark Light Shape React APD Right eye 4 2 Round Brisk None Left eye 4 2 Round Brisk None Visual Ramirez Right eye Left eye Full Full Extraocular Movement Right eye Left eye Full, Ortho Full, Ortho Neuro/Psych Oriented x3: Yes Mood/Affect: Normal External Exam Right eye Left eye External Brow ptosis Brow ptosis Slit Lamp Exam Right eye Left eye Lids/Lashes Makeup, thickened ma rgins, full lid closure, thick meibum Makeup, thickened margins, full lid closure, thick meibum Conjunctiva/Sclera Pingecula, (+) stain Pingecul a, (+) stain Cornea (-) stain, 2s TBUT, LG (-) stain , 2s TBUT, LG Anterior Chamber Deep and quiet Deep and quiet Iris (-) NVI, brown (-) NVI, brown Lens 1+ NS 1+ NS Anterior Vitreous Vitreous syneresis Vitreous sy neresis Fundus Exam Right eye Left eye Disc (-) NVD, shallow, laminar dots, tilted (-) NVD, shallow, laminar dots, tilted C/D Ratio 0.20 0.20 Macula (-) DME (-) DME Vessels (-) NVE (-) NVE Periphery Fundus photos Fundus photos Wearing Rx Sphere Cylinder [place] Add Right eye -2.50 -0.50 180 +2.25 Left eye -1.75 -1.25 015 +2.25 Type: PALS Manifest Refraction Sphere Cylinder [place] Dist VA Add Right eye -2.25 -0.25 180 20/20+1 +2.50 Left eye -2.25 -0.75 015 20/20-3 +2.50 Final Rx Sphere Cylinder [place] Add Right eye -2.25 -0.25 180 +2.50 Left eye -2.25 -0.75 015 +2.50 Type: GUSTAVO Expiration Date: 09/21/2026
--- OUTSIDE RECORDS SUMMARY | 2024-09-23 10:30 | XMS_ITS | Encounter Summary ---
Author Organization [facility] Address [address] [place] [address] Care Team Providers Care Environmental Programs Specialist Name Role Phone Maximiliano Moreira MD Primary Care Provider [phone] Reason for Visit * Consultation (Routine) - Closed Specialty Diagnoses / Procedures Referred By Zurdo aguirre Referred To Contact Pulmonology Diagnoses Pre-transplant evaluation for lung transplant Other emphysema (CMS/HCC) Em Mcdonald MD [address] [address] Phone: tel: fax: [facility] [address] [place] [address] Phone: tel: fax: Referral ID Status Reason Start Date Expiration Date Visits Re quested Visits Authorized [id number] Closed 09/02/2024 03/04/2026 1 1 Encounter Details Date Type Department Care Team (Late st Contact Info) Description 09/23/2024 10:30 AM EDT Office Visit [facility] [address] [place] [address] Pre-transplant evaluation for lung transplant; Other emphysema (CMS/HCC) Social History Tobacco Use Types Packs/Day Years Used Date Smoking Tobacco: Former Cigarettes - 1968 Smokeless Tobacco: Never PHQ-2 Answer [...] Sign Reading Time Taken Comments Blood Pressure - - Pulse - - Temperature - - Respiratory Rate - - Oxygen Saturation - - Inhaled Oxygen Concentration - - Weight 79.9 kg (176 lb 2.4 oz) 09/23/2024 12:00 PM EDT Height 152.4 cm (5') 09/23/2024 12:00 PM EDT Body Mass Index 34.4 09/23/2024 12:00 PM EDT documented in this encounter Miscellaneous Notes * Progress Notes - Elisha Gamboa - 09/23/2024 10:30 AM EDT Pulmonary Rehab Daily Note Patient Name: Javier Glass Today's Date: 09/23/2024 General General Time In: 1020 Time Out: 1150 Visit Number: 1 Physician on Site: Hipolito Gil MD Pain: 0 Height: 152.4 cm (5') Weight: 79.9 kg (176 lb 2.4 oz) First day of exercise Patient oriented to facility and staff Vital Signs Resting Vital Signs SpO2: 93 % Pulse: 82 Supplemental Oxygen : 3 LPM N/C (32% FiO2) BP: 140/90 Dyspnea Index: 2 Falls: 0 Meds Taken: yes Meds Changed: no Blood Glucose: 151 Breathing Assessment Breathing Assessment: Diminished bilaterally Pt reports unproductive cough Exercise Exercise Modalities Seated Stepper Resistance Level: 1 Steps per Minute: 35 Time: 20 Minutes Total Steps: 698 Steps METS: 2.33 Exercise SPO2: 93 Exercise Heart Rate: 83 Supplemental Oxygen : 3 LPM N/C (32% FiO2) Exercise BP: 150/94 Exercise Dyspnea: 3 Rate of Percieved Exertion: 2 Pt tolerated exercise well Upper Body Ergometer Resistance: 1 Revolutions per Minute: 26 Time: 20 Distance: 1.22 METS: 2.2 Exercise SPO2: 92 Exercise HR: 85 Supplemental Oxygen: 3 LPM N/C (32% FiO2) Exercise BP: 160/88 Exercise Dyspnea: 2 Rate of Percieved Exertion: 2 Pt tolerated exercise well Weights Exercise Sets: 1 Reps: 10 Weight: 2 lbs Time: 10 Minutes Exercise SpO2: 95 Exercise HR: 85 Supplemental Oxygen: 3 LPM N/C (32% FiO2) Exercise Dyspnea: 2 Rate of Perceived Exertion: 2 Pt tolerated exercise well Cool Down Cool Down Exercises: 10 min Post-Activity Vital Signs Post-Activity Vital signs SpO2: 93 % Pulse: 85 Supplemental Oxygen : 3 LPM N/C (32% FiO2) BP: 138/86 Dyspnea Index: 0 Blood Glucose: 125 Educational Classes/20 Minutes Pt met with Dr. Schwartz, medical coder via Zoom and discussed program guidelines an goals Pt given program questionnaires to be completed and discussed at later date documented in this encounter Plan of Treatment Upcoming Encounters Date Type Department Care Team (Late st Contact Info) Description 11/18/2024 10:30 AM EDT Office Visit [facility] [address] [place] [address] 11/23/2024 10:30 AM EDT Office Visit [facility] [address] [place] [address] 11/25/2024 10:30 AM EDT Office Visit [facility] [address] [place] [address] 11/26/2024 8:00 AM EDT Office Visit [facility] [address] [place] [address] Deuce Lofton, PharmD [address] [facility] [address] [place] [address] 11/30/2024 10:30 AM EDT Office Visit [facility] [address] [place] [address] 12/31/2024 8:40 AM EDT Office Visit [facility] [address] [place] [address] Sobia Kincaid, MOLECULAR TECHNOLOGIST [address] [place] [address] documented as of this encounter Visit Diagnoses Diagnosis Pre-transplant evaluation for lung transplant Other emphysema (CMS/HCC) Other emphysema documented in this encounter Additional Health Concerns Assessment Noted Time A fall risk assessment has been complete d for the patient 09/01/2024 9:20 AM EDT A Body Mass Index follow-up plan has been documented for the patient 09/23/2024 1:13 PM EDT documented as of this encounter Care Teams Environmental Programs Specialist Relationship Specialty Start Date End Date Maximiliano Moreira MD [address] [place] [address] PCP - General 01/20/24 documented as of this encounter
--- OUTSIDE RECORDS SUMMARY | 2024-09-28 10:30 | XMS_ITS | Encounter Summary ---
Author Organization Healthcare Address [address] [place] [address] Care Team Providers Care Automation Analyst Name Role Phone Maximiliano Moreira MD Primary Care Provider [phone] Encounter Details Date Type Department Care Team (Late st Contact Info) Description 09/28/2024 10:30 AM EDT Office Visit [facility] [address] [place] [address] Other emphysema (CMS/HCC) (Primary Dx) Social History [...] Description 11/18/2024 10:30 AM EDT Office Visit [facility] Pulmonary Rehab [address] [place] [address] 11/23/2024 10:30 AM EDT Office Visit [facility] Pulmonary Rehab [address] [place] [address] 11/25/2024 10:30 AM EDT Office Visit [facility] Pulmonary Rehab [address] [place] [address] 11/26/2024 8:00 AM EDT Office Visit [facility] Endocrinology [address] [place] [address] Deuce Lofton, PharmD [address] [address] 11/30/2024 10:30 AM EDT Office Visit [facility] Pulmonary Rehab [address] [place] [address] 12/31/2024 8:40 AM EDT Office Visit [facility] Endocrinology [address] [place] [address] Sobia Kincaid, SLURRY PLANT OPERATOR [address] [address] documented as of this encounter Visit Diagnoses Diagnosis Other emphysema (CMS/HCC)- Primary Other emphysema documented in this encounter Additional Health Concerns Assessment Noted Time A fall risk assessment has been complete d for the patient 09/01/2024 9:20 AM EDT A Body Mass Index follow-up plan has been documented for the patient 09/28/2024 2:19 PM EDT documented as of this encounter Care Teams Automation Analyst Relationship Specialty Start Date End Date Maximiliano Moreira MD [address] [place] [address] PCP - General 01/20/24 documented as of this encounter
--- OUTSIDE RECORDS SUMMARY | 2024-09-30 10:30 | XMS_ITS | Encounter Summary ---
Author Organization [facility] Address [address] [place] [address] Care Team Providers Care Sand Analyst Name Role Phone Maximiliano Moreira MD Primary Care Provider [phone] Encounter Details Date Type Department Care Team (Late st Contact Info) Description 09/30/2024 10:30 AM EDT Office Visit [facility] [address] [place] [address] Other emphysema (CMS/HCC) (Primary Dx) Social History [...] Description 11/18/2024 10:30 AM EDT Office Visit [facility] Pulmonary Rehab [address] [place] [address] 11/23/2024 10:30 AM EDT Office Visit [facility] Pulmonary Rehab [address] [place] [address] 11/25/2024 10:30 AM EDT Office Visit [facility] Pulmonary Rehab [address] [place] [address] 11/26/2024 8:00 AM EDT Office Visit [facility] Endocrinology [address] [place] [address] Deuce Lofton, PharmD [address] [address] 11/30/2024 10:30 AM EDT Office Visit [facility] Pulmonary Rehab [address] [place] [address] 12/31/2024 8:40 AM EDT Office Visit [facility] Endocrinology [address] [place] [address] Sobia Kincaid, INTERNAL COMBUSTION ENGINE SUBASSEMBLER [address] [address] documented as of this encounter Visit Diagnoses Diagnosis Other emphysema (CMS/HCC)- Primary Other emphysema documented in this encounter Additional Health Concerns Assessment Noted Time A fall risk assessment has been complete d for the patient 09/01/2024 9:20 AM EDT A Body Mass Index follow-up plan has been documented for the patient 09/30/2024 2:41 PM EDT documented as of this encounter Care Teams Sand Analyst Relationship Specialty Start Date End Date Maximiliano Moreira MD [address] [place] [address] PCP - General 01/20/24 documented as of this encounter
--- OUTSIDE RECORDS SUMMARY | 2024-10-05 10:30 | XMS_ITS | Encounter Summary ---
Author Organization Healthcare Address [address] [place] [address] Care Team Providers Care Push Connector Assembler Name Role Phone Maximiliano Moreira MD Primary Care Provider [phone] Encounter Details Date Type Department Care Team (Late st Contact Info) Description 10/05/2024 10:30 AM EDT Office Visit [place] [facility] [address] [place] [address] Other emphysema (CMS/HCC) (Primary Dx) Social History [...] Description 11/18/2024 10:30 AM EDT Office Visit [facility] Pul[facility] Rehab [address] [place] [address] 11/23/2024 10:30 AM EDT Office Visit [facility] [address] [place] [address] 11/25/2024 10:30 AM EDT Office Visit [facility] Re[facility] [address] [place] [address] 11/26/2024 8:00 AM EDT Office Visit [facility] Endocrinology [address] [place] [address] Deuce Lofton, PharmD [address] [address] 11/30/2024 10:30 AM EDT Office Visit [facility] Re[facility] [address] [place] [address] 12/31/2024 8:40 AM EDT Office Visit [facility] Endocrinology [address] [place] [address] Sobia Kincaid, MANAGER ENT [address] [address] documented as of this encounter Visit Diagnoses Diagnosis Other emphysema (CMS/HCC)- Primary Other emphysema documented in this encounter Additional Health Concerns Assessment Noted Time A fall risk assessment has been complete d for the patient 09/01/2024 9:20 AM EDT A Body Mass Index follow-up plan has been documented for the patient 10/05/2024 1:42 PM EDT documented as of this encounter Care Teams Push Connector Assembler Relationship Specialty Start Date End Date Maximiliano Moreira MD [address] [place] [address] PCP - General 01/20/24 documented as of this encounter
--- OUTSIDE RECORDS SUMMARY | 2024-10-07 10:30 | XMS_ITS | Encounter Summary ---
Author Organization Healthcare Address [address] [place] [address] Care Team Providers Care Supervisor Abattoir Name Role Phone Maximiliano Moreira MD Primary Care Provider [phone] Encounter Details Date Type Department Care Team (Late st Contact Info) Description 10/07/2024 10:30 AM EDT Office Visit [facility] [address] [place] [address] Other emphysema (CMS/HCC) (Primary Dx) Social History [...] Description 11/18/2024 10:30 AM EDT Office Visit [facility] Pulmonary Rehab [address] [place] [address] 11/23/2024 10:30 AM EDT Office Visit [facility] Pulmonary Rehab [address] [place] [address] 11/25/2024 10:30 AM EDT Office Visit [facility] Pulmonary Rehab [address] [place] [address] 11/26/2024 8:00 AM EDT Office Visit [facility] Endocrinology [address] [place] [address] Deuce Lofton, PharmD [address] [address] 11/30/2024 10:30 AM EDT Office Visit [facility] Pulmonary Rehab [address] [place] [address] 12/31/2024 8:40 AM EDT Office Visit [facility] Endocrinology [address] [place] [address] Sobia Kincaid S, OCEANOGRAPHER PHYSICAL [address] [address] documented as of this encounter Visit Diagnoses Diagnosis Other emphysema (CMS/HCC)- Primary Other emphysema documented in this encounter Additional Health Concerns Assessment Noted Time A fall risk assessment has been complete d for the patient 09/01/2024 9:20 AM EDT A Body Mass Index follow-up plan has been documented for the patient 10/07/2024 11:51 AM EDT documented as of this encounter Care Teams Supervisor Abattoir Relationship Specialty Start Date End Date Maximiliano Moreira MD [address] [facility] [address] PCP - General 01/20/24 documented as of this encounter
--- OUTSIDE RECORDS SUMMARY | 2024-10-12 10:30 | XMS_ITS | Encounter Summary ---
Author Organization Healthcare Address [address] [place] [address] Care Team Providers Care Human Factors Specialist Name Role Phone Maximiliano Moreira MD Primary Care Provider [phone] Encounter Details Date Type Department Care Team (Late st Contact Info) Description 10/12/2024 10:30 AM EDT Office Visit [facility] [address] [place] [address] Other emphysema (CMS/HCC) (Primary Dx) Social History [...] Visit [facility] Rehab [address] [place] [address] 11/23/2024 10:30 AM EDT Office Visit [facility] [address] [place] [address] 11/25/2024 10:30 AM EDT Office Visit [facility] Re[facility] [address] [place] [address] 11/26/2024 8:00 AM EDT Office Visit [facility] Endocrinology [address] [place] [address] Deuce Lofton, PharmD [address] [address] 11/30/2024 10:30 AM EDT Office Visit [facility] Pulmonary Rehab [address] [place] [address] 12/31/2024 8:40 AM EDT Office Visit [facility] Endocrinology [address] [place] [address] Sobia Kincaid S, STRUCTURAL IRON WORKER [address] [facility] [address] [place] [address] documented as of this encounter Visit Diagnoses Diagnosis Other emphysema (CMS/HCC)- Primary Other emphysema documented in this encounter Additional Health Concerns Assessment Noted Time A fall risk assessment has been complete d for the patient 09/01/2024 9:20 AM EDT A Body Mass Index follow-up plan has been documented for the patient 10/12/2024 11:59 AM EDT documented as of this encounter Care Teams Human Factors Specialist Relationship Specialty Start Date End Date Maximiliano Moreira MD [address] [facility] [place] [address] PCP - General 01/20/24 documented as of this encounter
--- OUTSIDE RECORDS SUMMARY | 2024-10-14 10:30 | XMS_ITS | Encounter Summary ---
Author Organization [facility] Address [address] [place] [address] Care Team Providers Care Plastics Technician Name Role Phone Maximiliano Moreira MD Primary Care Provider [phone] Encounter Details Date Type Department Care Team (Late st Contact Info) Description 10/14/2024 10:30 AM EDT Office Visit [facility] [address] [place] [address] Other emphysema (CMS/HCC) (Primary Dx) Social History [...] Description 11/18/2024 10:30 AM EDT Office Visit [facility] Pulmonary Rehab [address] [place] [address] 11/23/2024 10:30 AM EDT Office Visit [facility] Pulmonary Rehab [address] [place] [address] 11/25/2024 10:30 AM EDT Office Visit [facility] Pulmonary Rehab [address] [place] [address] 11/26/2024 8:00 AM EDT Office Visit [facility] Endocrinology [address] [place] [address] Deuce Lofton, PharmD [address] [address] 11/30/2024 10:30 AM EDT Office Visit [facility] Pulmonary Rehab [address] [place] [address] 12/31/2024 8:40 AM EDT Office Visit [facility] Endocrinology [address] [place] [address] Sobia Kincaid, SUPERINTENDENT [address] [address] documented as of this encounter Visit Diagnoses Diagnosis Other emphysema (CMS/HCC)- Primary Other emphysema documented in this encounter Additional Health Concerns Assessment Noted Time A fall risk assessment has been complete d for the patient 09/01/2024 9:20 AM EDT A Body Mass Index follow-up plan has been documented for the patient 10/14/2024 11:40 AM EDT documented as of this encounter Care Teams Plastics Technician Relationship Specialty Start Date End Date Maximiliano Moreira MD [address] [place], [place] [id number] PCP - General 01/20/24 documented as of this encounter
--- OUTSIDE RECORDS SUMMARY | 2024-10-19 10:30 | XMS_ITS | Encounter Summary ---
Author Organization [facility] Address [address] [place] [address] Care Team Providers Care Inorganic Chemistry Professor Name Role Phone Maximiliano Moreira MD Primary Care Provider [phone] Encounter Details Date Type Department Care Team (Late st Contact Info) Description 10/19/2024 10:30 AM EDT Office Visit [facility] Pulmonary Rehab [address] [place] [address] Other emphysema (CMS/HCC) (Primary Dx); Chronic obstructive pulmonary disease, unspecified COPD type (CMS/HCC) Social History Tobacco Use Types Packs/Day [...] Weight 79.9 kg (176 lb 2.4 oz) 10/19/2024 11:00 AM EDT Height 152.4 cm (5') 10/19/2024 11:00 AM EDT Body Mass Index 34.4 10/19/2024 11:00 AM EDT documented in this encounter Miscellaneous Notes * Progress Notes - Elisha Gamboa - 10/19/2024 10:30 AM EDT Pulmonary Rehab Daily Note Patient Name: Javier Foss Today's Date: 10/19/2024 General General Time In: 1020 Time Out: 1150 Visit Number: 8 Physician on Site: María Espinoza APRN Pain: 2/10 upper/ mid back pain Height: 152.4 cm (5') Weight: 79.9 kg (176 lb 2.4 oz) Vital Signs Resting Vital Signs SpO2: 96 % Pulse: 67 Supplemental Oxygen : 3 LPM N/C (32% FiO2) BP: 124/70 Dyspnea Index: 2 Falls: 0 Meds Taken: yes Meds Changed: no Blood Glucose: 150 Breathing Assessment Breathing Assessment: Diminished bilaterally Exercise Exercise Modalities Track Walk Assistive Device: Rollator Time: 20 Minutes Number of Laps: 21 Exercise SPO2: 94 Exercise HR: 87 Supplemental Oxygen: 6 LPM N/C (44% FiO2) Exercise BP: 122/72 Exercise Dyspnea: 2 Rate of Percieved Exertion: 2 Pt tolerated exercise well Seated Stepper Resistance Level: 2-4 Steps per Minute: 40 Time: 20 Minutes Total Steps: 850 Steps METS: 2.58 Exercise SPO2: 94 Exercise Heart Rate: 80 Supplemental Oxygen : 4 LPM N/C (36% FiO2) Exercise BP: 128/80 Exercise Dyspnea: 3 Rate of Percieved Exertion: 3 Pt tolerated exercise well Weights Exercise Sets: 3 Reps: 15 Weight: 3 lbs Time: 10 Minutes Exercise SpO2: 93 Exercise HR: 74 Supplemental Oxygen: 4 LPM N/C (36% FiO2) Exercise Dyspnea: 2 Rate of Perceived Exertion: 2 Pt tolerated exercise well Cool Down Cool Down Exercises: 10 min Post-Activity Vital Signs Post-Activity Vital signs SpO2: 95 % Pulse: 70 Supplemental Oxygen : 3 LPM N/C (32% FiO2) BP: 118/64 Dyspnea Index: 2 Blood Glucose: 132 Educational Classes/20 Minutes Diabetes (NW) documented in this encounter Plan of Treatment Upcoming Encounters Date Type Department Care Team (Late st Contact Info) Description 11/18/2024 10:30 AM EDT Office Visit [facility] Pulmonary Rehab [address] [place] [address] 11/23/2024 10:30 AM EDT Office Visit [facility] Pulmonary Rehab [address] [place] [address] 11/25/2024 10:30 AM EDT Office Visit [facility] Pulmonary Rehab [address] [place] [address] 11/26/2024 8:00 AM EDT Office Visit [facility] Endocrinology [address] [place] [address] Deuce Lofton, PharmD [address] [address] 11/30/2024 10:30 AM EDT Office Visit [facility] Pulmonary Rehab [address] [place] [address] 12/31/2024 8:40 AM EDT Office Visit [facility] Endocrinology [address] [place] [address] Sobia Kincaid S, BLANKET WEAVER [address] [address] documented as of this encounter Visit Diagnoses Diagnosis Other emphysema (CMS/HCC)- Primary Other emphysema Chronic obstructive pulmonary disease, unspecified COPD type (CMS/HCC) documented in this encounter Additional Health Concerns Assessment Noted Time A fall risk assessment has been complete d for the patient 09/01/2024 9:20 AM EDT A Body Mass Index follow-up plan has been documented for the patient 10/19/2024 11:36 AM EDT documented as of this encounter Care Teams Inorganic Chemistry Professor Relationship Specialty Start Date End Date Maximiliano Moreira MD [address] [place] [address] PCP - General 01/20/24 documented as of this encounter
--- OUTSIDE RECORDS SUMMARY | 2024-10-21 10:30 | XMS_ITS | Encounter Summary ---
Author Organization [facility] Address [address] [place] [address] Care Team Providers Care Welt Cutter Name Role Phone Maximiliano Moreira MD Primary Care Provider [phone] Encounter Details Date Type Department Care Team (Late st Contact Info) Description 10/21/2024 10:30 AM EDT Office Visit [facility] [address] [place] [address] Other emphysema (CMS/HCC) (Primary Dx) Social History [...] Description 11/18/2024 10:30 AM EDT Office Visit [facility] Pulmonary Rehab [address] [place] [address] 11/23/2024 10:30 AM EDT Office Visit [facility] [address] [place] [address] 11/25/2024 10:30 AM EDT Office Visit [facility] Pulmonary Rehab [address] [place] [address] 11/26/2024 8:00 AM EDT Office Visit [facility] Endocrinology [address] [place] [address] Deuce Lofton, PharmD [address] [facility] [address] [place] [address] 11/30/2024 10:30 AM EDT Office Visit [facility] Pulmonary Rehab [address] [place] [address] 12/31/2024 8:40 AM EDT Office Visit [facility] Endocrinology [address] [place] [address] Sobia Kincaid, DIRECTOR STATISTICAL PROGRAMMING [address] [facility] [address] [place] [address] documented as of this encounter Visit Diagnoses Diagnosis Other emphysema (CMS/HCC)- Primary Other emphysema documented in this encounter Additional Health Concerns Assessment Noted Time A fall risk assessment has been complete d for the patient 09/01/2024 9:20 AM EDT A Body Mass Index follow-up plan has been documented for the patient 10/21/2024 11:49 AM EDT documented as of this encounter Care Teams Welt Cutter Relationship Specialty Start Date End Date Maximiliano Moreira MD [address] [place] [address] PCP - General 01/20/24 documented as of this encounter
--- OUTSIDE RECORDS SUMMARY | 2024-10-28 10:30 | XMS_ITS | Encounter Summary ---
Author Organization [facility] Address [address] [place] [address] Care Team Providers Care Airline Mechanic Name Role Phone Maximiliano Moreira MD Primary Care Provider [phone] Encounter Details Date Type Department Care Team (Late st Contact Info) Description 10/28/2024 10:30 AM EDT Office Visit [facility] Re[facility] [address] [place] [address] Chronic obstructive pulmonary disease, unspecified COPD type (CMS/HCC) (Primary Dx) Social History Tobacco Use [...] Weight 79.4 kg (175 lb 0.7 oz) 10/28/2024 12:00 PM EDT Height 152.4 cm (5') 10/28/2024 12:00 PM EDT Body Mass Index 34.19 10/28/2024 12:00 PM EDT documented in this encounter Miscellaneous Notes * Progress Notes - Elisha Gamboa - 10/28/2024 10:30 AM EDT Pulmonary Rehab Daily Note Patient Name: Javier Foss Today's Date: 10/28/2024 General General Time In: 1020 Time Out: 1150 Visit Number: 10 Physician on Site: Quinn Martinez MD Pain: 0 Height: 152.4 cm (5') Weight: 79.4 kg (175 lb 0.7 oz) Vital Signs Resting Vital Signs SpO2: 93 % Pulse: 74 Supplemental Oxygen : 3 LPM N/C (32% FiO2) BP: 118/68 Dyspnea Index: 3 Falls: 0 Meds Taken: yes Meds Changed: no Blood Glucose: 140 Breathing Assessment Breathing Assessment: Diminished bilaterally Exercise Exercise Modalities Track Walk Assistive Device: Rollator Time: 20 Minutes Number of Laps: 19 Exercise SPO2: 92 Exercise HR: 78 Supplemental Oxygen: 6 LPM N/C (44% FiO2) Exercise Dyspnea: 3 Rate of Percieved Exertion: 3 Pt tolerated exercise well Seated Stepper Resistance Level: 4-5 Steps per Minute: 44 Time: 20 Minutes Total Steps: 973 Steps METS: 2.33 Exercise SPO2: 93 Exercise Heart Rate: 79 Supplemental Oxygen : 3 LPM N/C (32% FiO2) Exercise BP: 110/60 Exercise Dyspnea: 3 Rate of Percieved Exertion: 3 Pt tolerated exercise well Weights Exercise Sets: 1 Reps: 10 Weight: 4 lbs Time: 10 Minutes Exercise SpO2: 95 Exercise HR: 76 Supplemental Oxygen: 4 LPM N/C (36% FiO2) Exercise Dyspnea: 3 Rate of Perceived Exertion: 3 Pt tolerated exercise well Cool Down Cool Down Exercises: 10 min Post-Activity Vital Signs Post-Activity Vital signs SpO2: 96 % Pulse: 70 Supplemental Oxygen : 4 LPM N/C (36% FiO2) BP: 110/60 Dyspnea Index: 2 Blood Glucose: 128 Educational Classes/20 Minutes Physiology of Lung Disease - Part 1 (anatomy of healthy lungs)(AN) documented in this encounter Plan of Treatment Upcoming Encounters Date Type Department Care Team (Late st Contact Info) Description 11/18/2024 10:30 AM EDT Office Visit [facility] Pulmonary Rehab [address] [place] [address] 11/23/2024 10:30 AM EDT Office Visit [facility] Pulmonary Rehab [address] [place] [address] 11/25/2024 10:30 AM EDT Office Visit [facility] Pulmonary Rehab [address] [place] [address] 11/26/2024 8:00 AM EDT Office Visit [facility] Endocrinology [address] [place] [address] Deuce Lofton, PharmD [address] [address] 11/30/2024 10:30 AM EDT Office Visit [facility] Pulmonary Rehab [address] [place] [address] 12/31/2024 8:40 AM EDT Office Visit [facility] Endocrinology [address] [place] [address] Sobia Kincaid, SENIOR PROCESS ANALYST [address] [address] documented as of this encounter Visit Diagnoses Diagnosis Chronic obstructive pulmonary disease, unspecified COPD type (CMS/HCC)- Primary documented in this encounter Additional Health Concerns Assessment Noted Time A fall risk assessment has been complete d for the patient 09/01/2024 9:20 AM EDT A Body Mass Index follow-up plan has been documented for the patient 10/28/2024 12:47 PM EDT documented as of this encounter Care Teams Airline Mechanic Relationship Specialty Start Date End Date Maximiliano Moreira MD [address] [address] PCP - General 01/20/24 documented as of this encounter
--- OUTSIDE RECORDS SUMMARY | 2024-10-29 08:30 | XMS_ITS | Encounter Summary ---
Author Organization [facility] Address [address] [place] [address] Care Team Providers Care Assistant Account Manager Name Role Phone Maximiliano Moreira MD Primary Care Provider [phone] Reason for Referral * Consultation (Routine) - Authorized Specialty Diagnoses / Procedures Referred By Zurdo aguirre Referred To Contact Endocrinology Diagnoses Type 2 diabetes mellitus with hyperglycemia, with long-term current use of insulin (CMS/HCC) Sobia Kincaid APRN [address] [address] Phone: tel: fax: Deuce Lofton, PharmD [address] [address] Phone: tel: fax: Referral ID Status Reason Start Date Expiration Date V isits Requested Visits Authorized [id number] Authorized 10/29/2024 04/30/2026 1 1 * Consultation (Routine) - Closed Specialty Diagnoses / Procedures Referred By Contaislinn t Referred To Contact Endocrinology Diagnoses Type 2 diabetes mellitus with hyperglycemia, with long-term current use of insulin (CMS/HCC) Sobia Kincaid APRN [address] [address] Phone: tel: fax: [facility] Diabetes Education [address] [place] [address] Phone: tel: fax: Referral ID Status Reason Start Date Expiration Date Visits Re quested Visits Authorized [id number] Closed 10/29/2024 04/30/2026 1 1 Scheduling Instructions Carb counting, interested in insulin pump therapy Reason for Visit * Reason Comments Diabetes * Consultation (Routine) - Closed Specialty Diagnoses / Procedures Referred By Zurdo aguirre Referred To Contact Endocrinology Diagnoses Type 2 diabetes mellitus with hyperglycemia, with long-term current use of insulin (CMS/HCC) Sobia Kincaid APRN [address] [address] Phone: tel: fax: eDuce Lofton, PharmD [address] [address] Phone: tel: fax: Referral ID Status Reason Start Date Expiration Date Visits Re quested Visits Authorized [id number] Closed 09/17/2024 03/19/2026 1 1 Encounter Details Date Type Department Care Team (Late st Contact Info) Description 10/29/2024 8:30 AM EDT Office Visit [facility] Endocrinology [address] [place] [address] Deuce Lofton, PharmD [address] [address] Type 2 diabetes mellitus with hyperglycemia, with long-term current use of insulin (CMS/HCC) Social History Tobacco Use Types Packs/Day [...] Sign Reading Time Taken Comments Blood Pressure 124/79 10/29/2024 7:51 AM EDT Pulse 76 10/29/2024 7:51 AM EDT Temperature - - Respiratory Rate - - Oxygen Saturation - - Inhaled Oxygen Concentration - - Weight 80.1 kg (176 lb 9.4 oz) 10/29/2024 7:51 A M EDT Height - - Body Mass Index 34.49 10/28/2024 12:00 PM EDT documented in this encounter Miscellaneous Notes * Patient Instructions - Deuce Lofton, PharmD - 10/29/2024 8:30 AM EDT - continue insulin glargine 50 units nightly - change insulin aspart (Novolog) to 4 units before breakfast and lunch, 5 units before dinner + correction scale below - If planning to carb count, use ratio of 1 unit insulin aspart (Novolog) per every 8 grams carbohydrates + correction scale Insulin Correction Scale 1:30 One unit of __insulin aspart will lower your blood sugar 30 mg/dl. Blood Sugar Reading (mg/dl) Correction Insulin Dose 150-180 mg/dl 1 unit 181-210 2 units 211-240 3 units 241-270 4 units 271-300 5 units 301-330 6 units 331-360 7 units 361-390 8 units 391-420 9 units 421-450 10 units >450 11 units If your blood sugar consistently stays above 250, please contact the Diabetes Team at [phone]. * Progress Notes - Deuce Lofton, PharmD - 10/29/2024 8:30 AM EDT Images from the original note were not included. Subjective Javier Glass is a 63 y.o. female who presents to the [facility] medication adjustment clinic for follow up evaluation of Diabetes Mellitis Type 2. PMH: COPD (lung pre-transplant eval), hypothyroidism,HTN, HLD, hx of smoking (quit 2016) HPI Last visit with endocrinology provider Sobia Kincaid APRN on 09/09/24, most recent A1c 7.2% on 08/13/24. Pt seen more recently in [facility] on 09/17. Changes made at last visit include: none given good control. Since last visit, pt has been seen by pulmonology rehab multiple times. Pt was seen by family medicine on 10/08 for edema. Pt sent message on 10/09 inquiring about Omnipod therapy. Patient was diagnosed in 2018. Current symptoms/problems include hyperglycemia and recent GI illness (10/23-10/25). Pt reports issues with fluid retention off and on since last visit as well as more fluctuation in BG than what has been seen previously. Does report ~1.5 weeks ago BG was as high as 400, however pt believes this may have been secondary to illness that occurred soon after. Reports recent GI illness which they have continued to recover from. Current treatment includes: - Insulin glargine u-300 (Toujeo) 50u PM - taking at 8PM - Insulin aspart (Novolog) 3u TID AC + 1:30>150 SS - usually will take 5 units or less(4 units at breakfast and lunch, 5 at dinner), highest dose has been 8 units, taking three times daily ~ 15 minutes before eating Medication adherence: patient endorses maybe one missed dose when sick. Previous DM therapy: Farxiga and Ozempic (SE and plans for lung transplant) Patient monitors blood glucose at home continuously with Dexcom. At last visit, pt was checking BG 4 times daily in the AM and before meals with avg BG of 142. No low BG were occurring prior to visit. Hypoglycemia: since last visit: denied any lows. Lowest has been 90 when checking BG. Pt keeps orange juice on hand. Sensor Type: Dexcom (w/ reader) Interpretation: Blood sugars relatively well controlled in recent days however with prandial elevations, noted a few days of more markedly elevated BG 10/16- 10/22 proceeding recent GI illness over lastweeke but overall improved control since that time. Current diet: 3 meals daily, no snacks, aiming for 1200 calories (getting >900 calories), 70 grams protein (getting >50 g), eating yogurt, granola. Reports had backed off on carbs during stomach illness and had a few days where they weren't able to eat a normal diet. Aiming for 30-40g carbs TID, <15g snacks Breakfast: 7:30 PM: oatmeal with fruit this morning Lunch: 12-1PM: usually not hungry; soup (cabbage; Swamp soup- greens and white beans) Dinner: 6PM: meats (chicken) and vegetables (beans and greens, broccoli, asparagus; avoids pasta, and potatoes- sometimes will eat sweet potatoes and baby Gold potatoes) Snacks: does not snack much, peanuts if she does Beverages: protein shakes (2/day), water (yaniv and cucumber infused) Physical activity: limited with O2 use, been to one appointment with pulmonary rehab - doing exercises with them (will start seeing 3x week starting on 09/22) Complications & Comorbidities: HTN: metoprolol tartrate 75mg BID, spironolactone 25mg daily Dyslipidemia: (+) on atorvastatin 10mg daily; last LDL 67 on 03/2024 ASCVD: (-) Retinopathy: (-) last eye exam 09/2024, no DR noted Neuropathy: (+) monofilament exam 09/09/24; hx of ulcers/sores Nephropathy: last eGFR 101 on 09/01/24 Hypothyroidism: LT4 100 mcg qAM; TSH WNL 03/2024 Immunizations: (+) flu, (+) PPSV, (+) COVID Immunization History Administered Date(s) Administered Moderna COVID-19 Vaccine (Fish Cleaner Machine Tender) 12+ years 08/04/2020, 09/01/2020, 04/19/2021 The following portions of the chart were reviewed this encounter and updated as appropriate: Allergies Meds Review of Systems Objective Visit Vitals BP 124/79 Pulse 76 Wt 80.1 kg (176 lb 9.4 oz) BMI 34.49 kg/m?? Smoking Status Former BSA 1.84 m?? Physical Exam Lab Review Hemoglobin A1c [...] hyperglycemia, with long-term current use of insulin ([facility]) Relevant Medications NovoLOG FLEXPEN 100 UNIT/ML injection pen Other Relevant Orders Ambulatory Referral to [facility] Diabetes Nutrition Follow Up [facility] Diabetes Mellitis Type 2 - A1c above goal and With hyperglycemia, pt with interest in pursuing insulin pump therapy today with Omnipod. Discussed use of insulin pump therapy and carb counting in depth, pt interested in beingseen by the ed center for further education on carb counting prior to considering pump initiation further. Given prandial spikes in BG seen on CGM download, will increase Novolog today. Will continuecurrent dose of Toujeo at this time. Provided CR for use once pt is more comfortable with carb counting after ed center visit. Discussed with pt that they can use correction doses between meals ( doses by at least 3 hours) if needed to correct hyperglycemia given they did not do this while ill recently. Medication changes today: - Increase insulin aspart (Novolog) to 4 units before breakfast and lunch, 5 units before dinner +1:30>150, if moving to carb counting use CR of 1un:8g CHO + 1:30>150 Medications to continue: - Insulin glargine u-300 (Tujeo) 50u PM - Reviewed signs and symptoms of hypoglycemia, prevention, and treatment (Rule of 15). - Monitor blood glucose QID with home meter until CGM placement. Complications & Preventative Care - HTN & HLD - continue current regimen - managed by PCP - Continue annual eye appointments - Continue checking feet daily for wounds/ulcers/sores - Entered referral for carb counting Follow up: in 4 weeks with [facility]; with Sobia Kincaid at appointment scheduled on [...] discussion and/or coordination of care. Deuce Lofton, MerlineD [facility] ENDOCRINOLOGY [address] [facility], [address] [facility] [address] documented in this encounter Plan of Treatment Upcoming Encounters Date Type Department Care Team (Late st Contact Info) Description 11/18/2024 10:30 AM EDT Office Visit [facility] [address] [place] [address] 11/23/2024 10:30 AM EDT Office Visit [facility] [address] [place] [address] 11/25/2024 10:30 AM EDT Office Visit [facility] [address] [place] [address] 11/26/2024 8:00 AM EDT Office Visit [facility] Endocrinology [address] [place] [address] Deuce Lofton, PharmD [address] [place] [address] 11/30/2024 10:30 AM EDT Office Visit [facility] Pulmonary Rehab [address] [place] [address] 12/31/2024 8:40 AM EDT [facility] [address] [place] [address] Sobia Kincaid, AIR CONDITIONING UNIT ASSEMBLER [address] [place] [address] Scheduled Referrals Name Type Priority Associated Diagnoses Order Schedule Ambulatory Referral to [facility] Diabetes Nutrition Outpatient Referral Routine Type 2 diabetes mellitus with hyperglycemia, with long-term current use of insulin (CMS/HCC) Expected: 11/12/2024, Expires: 05/01/2026 Follow Up [facility] Outpatient Referral Routine Type 2 diabetes mellitus with hyperglycemia, with long-term current use of insulin (CMS/HCC) Expected: 11/26/2024, Expires: 11/29/2025 documented as of this encounter Visit Diagnoses Diagnosis Type 2 diabetes mellitus with hyperglycemia, with long-term current use of insulin (CMS/HCC) documented in this encounter Additional Health Concerns Assessment Noted Time A fall risk assessment has been complete d for the patient 09/01/2024 9:20 AM EDT A Body Mass Index follow-up plan has been documented for the patient 10/29/2024 8:32 AM EDT documented as of this encounter Care Teams Assistant Account Manager Relationship Specialty Start Date End Date Maximiliano Moreira MD [facility] [place] [address] PCP - General 01/20/24 documented as of this encounter
--- OUTSIDE RECORDS SUMMARY | 2024-11-02 10:30 | XMS_ITS | Encounter Summary ---
Author Organization [facility] Address [address] [place] [address] Care Team Providers Care Clam Grower Name Role Phone Maximiliano Moreira MD Primary Care Provider [phone] Encounter Details Date Type Department Care Team (Late st Contact Info) Description 11/02/2024 10:30 AM EDT Office Visit [facility] Pulmonary Rehab [address] [place] [phone] Chronic obstructive pulmonary disease, unspecified COPD type (CMS/HCC) (Primary Dx); Other emphysema (CMS/HCC) Social History Tobacco Use [...] Weight - - Height 152.4 cm (5') 11/02/2024 11:00 AM EDT Body Mass Index - - documented in this encounter Miscellaneous Notes * Progress Notes - Elisha Gamboa - 11/02/2024 10:30 AM EDT Pulmonary Rehab Daily Note Patient Name: Javier Glass Today's Date: 11/02/2024 General General Time In: 1020 Time Out: 1150 Visit Number: 11 Physician on Site: María Espinoza APRN Height: 152.4 cm (5') Vital Signs Resting Vital Signs SpO2: 95 % Pulse: 67 Supplemental Oxygen : 3 LPM N/C (32% FiO2) BP: 120/70 Dyspnea Index: 0 Falls: 0 Meds Taken: yes Meds Changed: no Blood Glucose: 150 Breathing Assessment Breathing Assessment: Diminished bilaterally Exercise Exercise Modalities Track Walk Assistive Device: Rollator Time: 20 Minutes Number of Laps: 20 Exercise SPO2: 90 Exercise HR: 85 Supplemental Oxygen: 4 LPM N/C (36% FiO2) Exercise Dyspnea: 3 Rate of Percieved Exertion: 3 Pt tolerated exercise with PLB reminders Seated Stepper Resistance Level: 4-6 Steps per Minute: 61 Time: 20 Minutes Total Steps: 1052 Steps METS: 3.05 Exercise SPO2: 95 Exercise Heart Rate: 75 Supplemental Oxygen : 3 LPM N/C (32% FiO2) Exercise BP: 122/68 Exercise Dyspnea: 3 Rate of Percieved Exertion: 2 Pt tolerated exercise well Weights Exercise Sets: 1 Reps: 12 Weight: 4 lbs Time: 10 Minutes Exercise SpO2: 94 Exercise HR: 74 Supplemental Oxygen: 4 LPM N/C (36% FiO2) Exercise Dyspnea: 3 Rate of Perceived Exertion: 3 Pt tolerated exercise well Cool Down Cool Down Exercises: 10 min Post-Activity Vital Signs Post-Activity Vital signs SpO2: 96 % Pulse: 74 Supplemental Oxygen : 4 LPM N/C (36% FiO2) BP: 110/68 Dyspnea Index: 2 Blood Glucose: 129 Educational Classes/20 Minutes Physiology of Lung Disease - Part 2 (COPD, lung disease)(AN) documented in this encounter Plan of Treatment Upcoming Encounters Date Type Department Care Team (Late st Contact Info) Description 11/18/2024 10:30 AM EDT Office Visit [facility] Pulmonary Rehab [address] [place] [address] 11/23/2024 10:30 AM EDT Office Visit [facility] Pulmonary Rehab [address] [place] [address] 11/25/2024 10:30 AM EDT Office Visit [facility] Pulmonary Rehab [address] [place] [address] 11/26/2024 8:00 AM EDT Office Visit [facility] Endocrinology [address] [place] [address] Deuce Lofton, PharmD [address] [address] 11/30/2024 10:30 AM EDT Office Visit [facility] Pulmonary Rehab [address] [place] [address] 12/31/2024 8:40 AM EDT Office Visit [facility] Endocrinology [address] [place] [address] Sobia Kincaid, LAUNDERER HAND [address] [address] documented as of this encounter Visit Diagnoses Diagnosis Chronic obstructive pulmonary disease, unspecified COPD type ([facility]/HCC)- Primary Other emphysema ([facility]) Other emphysema documented in this encounter Additional Health Concerns Assessment Noted Time A fall risk assessment has been complete d for the patient 09/01/2024 9:20 AM EDT A Body Mass Index follow-up plan has been documented for the patient 11/02/2024 12:02 PM EDT documented as of this encounter Care Teams Clam Grower Relationship Specialty Start Date End Date Maximiliano Moreira MD [address] [place] [address] PCP - General 01/20/24 documented as of this encounter
--- OUTSIDE RECORDS SUMMARY | 2024-11-04 10:30 | XMS_ITS | Encounter Summary ---
Author Organization [facility] Address [address] [place] [address] Care Team Providers Care Optical Technician Name Role Phone Maximiliano Moreira MD Primary Care Provider [phone] Encounter Details Date Type Department Care Team (Late st Contact Info) Description 11/04/2024 10:30 AM EDT Office Visit [facility] [address] [place] [address] Other emphysema (CMS/HCC) (Primary Dx) Social History [...] Weight - - Height 152.4 cm (5') 11/04/2024 11:00 AM EDT Body Mass Index - - documented in this encounter Miscellaneous Notes * Progress Notes - Elisha Gamboa - 11/04/2024 10:30 AM EDT Pulmonary Rehab Daily Note Patient Name: Javier Glass Today's Date: 11/04/2024 General General Time In: 1020 Time Out: 1150 Visit Number: 12 Physician on Site: Hipolito Gil MD Height: 152.4 cm (5') Vital Signs Resting Vital Signs SpO2: 92 % Pulse: 68 Supplemental Oxygen : 3 LPM N/C (32% FiO2) BP: 134/66 Dyspnea Index: 2 Falls: 0 Meds Taken: yes Meds Changed: no Blood Glucose: 176 Breathing Assessment Breathing Assessment: Diminished bilaterally Exercise Exercise Modalities Track Walk Assistive Device: Rollator Time: 20 Minutes Number of Laps: 22 Exercise SPO2: 92 Exercise HR: 89 Supplemental Oxygen: 6 LPM N/C (44% FiO2) Exercise BP: 122/60 Exercise Dyspnea: 2 Rate of Percieved Exertion: 3 Signs and Symptoms: Pt tolerated exercise well Upper Body Ergometer Resistance: 2-4 Revolutions per Minute: 47 Time: 20 Distance: 1.67 METS: 2.5 Exercise SPO2: 91 Exercise HR: 81 Supplemental Oxygen: 3 LPM N/C (32% FiO2) Exercise BP: 120/68 Exercise Dyspnea: 2 Rate of Percieved Exertion: 3 Pt tolerated exercise well Weights Exercise Sets: 1 Reps: 15 Weight: 4 lbs Time: 10 Minutes Exercise SpO2: 96 Exercise HR: 73 Supplemental Oxygen: 4 LPM N/C (36% FiO2) Exercise Dyspnea: 3 Rate of Perceived Exertion: 3 Pt tolerated exercise well Cool Down Cool Down Exercises: 10 min Post-Activity Vital Signs Post-Activity Vital signs SpO2: 92 % Pulse: 75 Supplemental Oxygen : 3 LPM N/C (32% FiO2) BP: 118/60 Dyspnea Index: 2 Blood Glucose: 159 Educational Classes/20 Minutes Psychology (depression, anxiety, coping)(AN) documented in this encounter Plan of Treatment Upcoming Encounters Date Type Department Care Team (Late st Contact Info) Description 11/18/2024 10:30 AM EDT Office Visit [facility] Pulmonary Rehab [address] [place] [address] 11/23/2024 10:30 AM EDT Office Visit [facility] Pulmonary Rehab [address] [place] [address] 11/25/2024 10:30 AM EDT Office Visit [facility] Pulmonary Rehab [address] [place] [address] 11/26/2024 8:00 AM EDT Office Visit [facility] Endocrinology [address] [place] [address] Deuce Lofton, PharmD [address] [address] 11/30/2024 10:30 AM EDT Office Visit [facility] Pulmonary Rehab [address] [place] [address] 12/31/2024 8:40 AM EDT Office Visit [facility] Endocrinology [address] [place] [address] Sobia Kincaid, TRACTOR TRAILER DRIVER [address] [address] documented as of this encounter Visit Diagnoses Diagnosis Other emphysema (CMS/HCC)- Primary Other emphysema documented in this encounter Additional Health Concerns Assessment Noted Time A fall risk assessment has been complete d for the patient 09/01/2024 9:20 AM EDT A Body Mass Index follow-up plan has been documented for the patient 11/04/2024 12:54 PM EDT documented as of this encounter Care Teams Optical Technician Relationship Specialty Start Date End Date Maximiliano Moreira MD [address] [place] [address] PCP - General 01/20/24 documented as of this encounter
--- OUTSIDE RECORDS SUMMARY | 2024-11-09 10:30 | XMS_ITS | Encounter Summary ---
Author Organization [facility] Address [address] [place] [address] Care Team Providers Care Customer Relations Representative Name Role Phone Maximiliano Moreira MD Primary Care Provider [phone] Encounter Details Date Type Department Care Team (Late st Contact Info) Description 11/09/2024 10:30 AM EDT Office Visit [facility] Re[facility] [address] [place] [address] Other emphysema (CMS/HCC) (Primary Dx) Social History [...] Sign Reading Time Taken Comments Blood Pressure 126/80 11/09/2024 11:00 AM EDT Pulse 83 11/09/2024 11:00 AM EDT Temperature - - Respiratory Rate - - Oxygen Saturation 94% 11/09/2024 11:00 AM EDT Inhaled Oxygen Concentration - - Weight - - Height 152.4 cm (5') 11/09/2024 11:00 AM EDT Body Mass Index - - documented in this encounter Miscellaneous Notes * Progress Notes - Elisha Gamboa - 11/09/2024 10:30 AM EDT Pulmonary Rehab Daily Note Patient Name: Javier Glass Today's Date: 11/09/2024 General General Time In: 1020 Time Out: 1150 Visit Number: 13 Physician on Site: Elidia Serna MD Height: 152.4 cm (5') Vital Signs Resting Vital Signs SpO2: 93 % Pulse: 67 Supplemental Oxygen : 3 LPM N/C (32% FiO2) BP: 120/58 Dyspnea Index: 2 Falls: 0 Meds Taken: yes Meds Changed: no Blood Glucose: 167 Breathing Assessment Breathing Assessment: Diminished bilaterally Exercise Exercise Modalities Track Walk Assistive Device: Rollator Time: 10 Minutes Number of Laps: 12 Exercise SPO2: 92 Exercise HR: 77 Supplemental Oxygen: 6 LPM N/C (44% FiO2) Exercise Dyspnea: 3 Pt tolerated exercise well Upper Body Ergometer Resistance: 3-4 Revolutions per Minute: 48 Time: 20 Distance: 2.06 METS: 2.9 Exercise SPO2: 94 Exercise HR: 75 Supplemental Oxygen: 4 LPM N/C (36% FiO2) Exercise BP: 120/58 Exercise Dyspnea: 3 Rate of Percieved Exertion: 3 Pt tolerated exercise well Weights Exercise Sets: 1 Reps: 10 Weight: 4 lbs Time: 10 Minutes Exercise SpO2: 96 Exercise HR: 68 Supplemental Oxygen: 4 LPM N/C (36% FiO2) Exercise Dyspnea: 3 Rate of Perceived Exertion: 3 Pt tolerated exercise well Cool Down Cool Down Exercises: 10 min Post-Activity Vital Signs Post-Activity Vital signs SpO2: 94 % Pulse: 68 Supplemental Oxygen : 3 LPM N/C (32% FiO2) BP: 102/50 Dyspnea Index: 2 Blood Glucose: 122 Functional Assessments Six Minute Walk Test Heart Rate: 83 SpO2: 94 % Supplemental Oxygen : 6 LPM N/C (44% FiO2) BP: 126/80 Exercise Dyspnea: 3 Rate of Percieved Exertion: 3 Breaks: 0 Assistive Device: Rollator Total Distance Ambulated: 314.575 Meters MPH: 2.0 Attained MET Level: 2.5 Educational Classes/20 Minutes Diaphragmatic Breathing Meditation (CS) documented in this encounter Plan of Treatment Upcoming Encounters Date Type Department Care Team (Late st Contact Info) Description 11/18/2024 10:30 AM EDT Office Visit [facility] Pulmonary Rehab [address] [place] [address] 11/23/2024 10:30 AM EDT Office Visit [facility] Pulmonary Rehab [address] [place] [address] 11/25/2024 10:30 AM EDT Office Visit [facility] Pulmonary Rehab [address] [place] [address] 11/26/2024 8:00 AM EDT Office Visit [facility] Endocrinology [address] [place] [address] Deuce Lofton, PharmD [address] [address] 11/30/2024 10:30 AM EDT Office Visit [facility] Pulmonary Rehab [address] [place] [address] 12/31/2024 8:40 AM EDT Office Visit [facility] Endocrinology [address] [place] [address] Sobia Kincaid S, SQL TECH [address] [address] documented as of this encounter Visit Diagnoses Diagnosis Other emphysema (CMS/HCC)- Primary Other emphysema documented in this encounter Additional Health Concerns Assessment Noted Time A fall risk assessment has been complete d for the patient 09/01/2024 9:20 AM EDT A Body Mass Index follow-up plan has been documented for the patient 11/09/2024 11:56 AM EDT documented as of this encounter Care Teams Customer Relations Representative Relationship Specialty Start Date End Date Maximiliano Moreira MD [address] [place] [address] PCP - General 01/20/24 documented as of this encounter
--- OUTSIDE RECORDS SUMMARY | 2024-11-11 10:30 | XMS_ITS | Encounter Summary ---
Author Organization [facility] Address [address] [place] [address] Care Team Providers Care Political Science Instructor Name Role Phone Maximiliano Moreira MD Primary Care Provider [phone] Encounter Details Date Type Department Care Team (Late st Contact Info) Description 11/11/2024 10:30 AM EDT Office Visit [facility] [address] [place] [address] Other emphysema (CMS/HCC) (Primary Dx) Social History [...] Weight 79.4 kg (175 lb 0.7 oz) 11/11/2024 11:00 AM EDT Height 152.4 cm (5') 11/11/2024 11:00 AM EDT Body Mass Index 34.19 11/11/2024 11:00 AM EDT documented in this encounter Miscellaneous Notes * Progress Notes - Elisha Gamboa - 11/11/2024 10:30 AM EDT Pulmonary Rehab Daily Note Patient Name: Javier Glass Today's Date: 11/11/2024 General General Time In: 1020 Time Out: 1150 Visit Number: 14 Physician on Site: Hipolito Gil MD Height: 152.4 cm (5') Weight: 79.4 kg (175 lb 0.7 oz) Vital Signs Resting Vital Signs SpO2: 94 % Pulse: 79 Supplemental Oxygen : 3 LPM N/C (32% FiO2) BP: 116/62 Dyspnea Index: 2 Falls: 0 Meds Taken: yes Meds Changed: no Blood Glucose: 211 Breathing Assessment Breathing Assessment: Diminished bilaterally Exercise Exercise Modalities Track Walk Assistive Device: Rollator Time: 20 Minutes Number of Laps: 27 Exercise SPO2: 93 Exercise HR: 83 Supplemental Oxygen: 6 LPM N/C (44% FiO2) Exercise BP: 118/60 Exercise Dyspnea: 2 Rate of Percieved Exertion: 2 Pt tolerated exercise well Seated Stepper Resistance Level: 4-6 Steps per Minute: 50 Time: 20 Minutes Total Steps: 906 Steps METS: 2062 Exercise SPO2: 95 Exercise Heart Rate: 72 Supplemental Oxygen : 4 LPM N/C (36% FiO2) Exercise Dyspnea: 3 Rate of Percieved Exertion: 3 Pt tolerated exercise well Weights Exercise Sets: 2 Reps: 10 Weight: 4 lbs Time: 10 Minutes Exercise SpO2: 93 Exercise HR: 74 Supplemental Oxygen: 4 LPM N/C (36% FiO2) Exercise Dyspnea: 2 Rate of Perceived Exertion: 3 Pt tolerated exercise well Cool Down Cool Down Exercises: 10 min Post-Activity Vital Signs Post-Activity Vital signs SpO2: 92 % Pulse: 73 Supplemental Oxygen : 3 LPM N/C (32% FiO2) BP: 110/60 Dyspnea Index: 2 Blood Glucose: 143 Educational Classes/20 Minutes Stress management/relaxation (meditation)(AN) documented in this encounter Plan of Treatment Upcoming Encounters Date Type Department Care Team (Late st Contact Info) Description 11/18/2024 10:30 AM EDT Office Visit [facility] Pulmonary Rehab [address] [place] [address] 11/23/2024 10:30 AM EDT Office Visit [facility] Pulmonary Rehab [address] [place] [address] 11/25/2024 10:30 AM EDT Office Visit [facility] Pulmonary Rehab [address] [place] [address] 11/26/2024 8:00 AM EDT Office Visit [facility] Endocrinology [address] [place] [address] Deuce Lofton, PharmD [address] [address] 11/30/2024 10:30 AM EDT Office Visit [facility] Pulmonary Rehab [address] [place] [address] 12/31/2024 8:40 AM EDT Office Visit [facility] Endocrinology [address] [place] [address] Sobia Kincaid, GAUGER CHIEF [address] [address] documented as of this encounter Visit Diagnoses Diagnosis Other emphysema (CMS/[facility])- Primary Other emphysema documented in this encounter Additional Health Concerns Assessment Noted Time A fall risk assessment has been complete d for the patient 09/01/2024 9:20 AM EDT A Body Mass Index follow-up plan has been documented for the patient 11/11/2024 12:01 PM EDT documented as of this encounter Care Teams Political Science Instructor Relationship Specialty Start Date End Date Maximiliano Moreira MD [address] [place] [address] PCP - General 01/20/24 documented as of this encounter
--- OUTSIDE RECORDS SUMMARY | 2024-11-12 16:00 | XMS_ITS | Encounter Summary ---
Author Organization [facility] Address [address] [place] [address] Care Team Providers Care Glass Selector Name Role Phone Maximiliano Moreira MD Primary Care Provider [phone] Reason for Visit * Consultation (Routine) - Closed Specialty Diagnoses / Procedures Referred By Zurdo aguirre Referred To Contact Endocrinology Diagnoses Type 2 diabetes mellitus with hyperglycemia, with long-term current use of insulin ([facility]) Sobia Kincaid, DIVISION OPERATIONS SPECIALIST [address] [place] [address] Phone: tel: fax: [facility] Diabetes Education [address] [place] [address] Phone: tel: fax: Referral ID Status Reason Start Date Expiration Date Visits Re quested Visits Authorized [id number] Closed 10/29/2024 04/30/2026 1 1 Encounter Details Date Type Department Care Team (Late st Contact Info) Description 11/12/2024 4:00 PM EDT Education [facility] Diabetes Education [address] [place] [address] Henny Cervantes, RD [address] [place] [address] Type 2 diabetes mellitus with hyperglycemia, with long-term current use of insulin ([facility]) (Primary Dx) Social History Tobacco Use Types [...] PM EDT documented as of this encounter Miscellaneous Notes * Progress Notes - Henny Cervantes, RD - 11/12/2024 4:00 PM EDT Telehealth Statement Patient Verification Patient identity has been confirmed using name and date of ? Yes Authorizations and Agreements/Telemedicine Consent sent and consent confirmed? Yes Patient Location: Home/Other Patient confirms they are physically located in [place]? Yes If the patient is not physically located in [place], the provider has confirmed with Counts include [facility] beds at the [facility] thatthe provider is authorized to provide services in patient's stated location? N/A Provider Location: [facility] facility Audio and video or audio only? Audio and video Total visit time: 45 minutes Patient was seen via telehealth. Patient was shown several food images. Patient was able to identify 14/15 as been high or low in carbs. Discussed food sources high and low in carbohydrates, benefits of fiber in fruit/vegetables/whole grains, lean protein sources, and healthy fats. Discussed and reviewed Diabetes MyPlate visual for portion control at meals. Used measuring cups to demonstrate portions. Reviewed nutrition labels focusing on serving size and total carb grams. Practiced carb counting in examples. Discussed Urgent.ly nancy or Reonomy to find carb content of food items. Discussed on Planning Healthy Meal brochure page titled Carbohydrates the food item and portion size listed next to the food item on this page contains approx. 15g carbs. Patient saw pharmacy on 10/29 and noted from pharmacy note if carb counting to start using insulin to carb ratio 1:8g carbs. Patient reports she is comfortable with carb counting and starting this. Reviewed will take total carb grams and divide by 8 equals amount of insulin to administer. Practiced several examples together. Patient demonstrated this and feels comfortable doing this. Reviewed will no longer take set dose novolog 4 units at breakfast and lunch and 5 units at dinner if using insulin to carb ratio. Reviewed will still use correction 1:30>150mg/dL. Discussed insulin to carb ratio covers for the food/snacks eating and correction covers for high blood sugar. Discussed correction needs to be spaced out 3 hours otherwise may stack insulin and may cause low blood sugar. Patient verbalized understanding. Provided contact information for Adult Endo if she has any questions or concerns or if insulin carbratio needs to be adjusted to contact clinic. She has follow in two weeks on 11/26 with pharmacy. Emailed Planning Healthy Meal brochure. Thank you for the referral. Will follow up as needed. documented in this encounter Plan of Treatment Upcoming Encounters Date Type Department Care Team (Late st Contact Info) Description 11/18/2024 10:30 AM EDT Office Visit [facility] Pulmonary Rehab [address] [place] [address] 11/23/2024 10:30 AM EDT Office Visit [facility] Pulmonary Rehab [address] [place] [address] 11/25/2024 10:30 AM EDT Office Visit [facility] Pulmonary Rehab [address] [place] [address] 11/26/2024 8:00 AM EDT Office Visit [facility] Endocrinology [address] [place] [address] Deuce Lofton, PharmD [address] [facility] [address] [place] [address] 11/30/2024 10:30 AM EDT Office Visit [facility] Pulmonary Rehab [address] [place] [address] 12/31/2024 8:40 AM EDT Office Visit [facility] Endocrinology [address] [place] [address] Sobia Kincaid, DIVISION OPERATIONS SPECIALIST [address] [place] [address] documented as of this encounter Visit Diagnoses Diagnosis Type 2 diabetes mellitus with hyperglycemia, with long-term current use of insulin ([facility])- Primary documented in this encounter Additional Health Concerns Assessment Noted Time A fall risk assessment has been complete d for the patient 09/01/2024 9:20 AM EDT A Body Mass Index follow-up plan has been documented for the patient 11/11/2024 12:01 PM EDT documented as of this encounter Care Teams Glass Selector Relationship Specialty Start Date End Date Maximiliano Moreira MD [address] [facility] [place] [address] PCP - General 01/20/24 documented as of this encounter
--- OUTSIDE RECORDS SUMMARY | 2024-11-16 10:30 | XMS_ITS | Encounter Summary ---
Author Organization Healthcare Address [address] [place] [address] Care Team Providers Care Freight Traffic Consultant Name Role Phone Maximiliano Moreira MD Primary Care Provider [phone] Encounter Details Date Type Department Care Team (Late st Contact Info) Description 11/16/2024 10:30 AM EDT [facility] [address] [place] [address] Other emphysema (CMS/HCC) (Primary Dx) Social History [...] - Inhaled Oxygen Concentration - - Weight 79.8 kg (175 lb 14.8 oz) 025 11:00 AM EDT Height 152.4 cm (5') 11/16/2024 11:00 AM EDT Body Mass Index 34.36 11/16/2024 11:00 AM EDT documented in this encounter Miscellaneous Notes * Progress Notes - Elisha Gamboa - 11/16/2024 10:30 AM EDT Pulmonary Rehab Daily Note Patient Name: Javier Glass Today's Date: 11/16/2024 General General Time In: 1020 Time Out: 1150 Visit Number: 15 Physician on Site: Elidia Serna MD Height: 152.4 cm (5') Weight: 79.8 kg (175 lb 14.8 oz) Vital Signs Resting Vital Signs SpO2: 96 % Pulse: 73 Supplemental Oxygen : 3 LPM N/C (32% FiO2) BP: 124/62 Dyspnea Index: 2 Falls: 0 Meds Taken: yes Meds Changed: yes Duloxetine added for neuropathy Diabetes insulin adjusted for timing Lasix dosage changed Blood Glucose: 269 Breathing Assessment Breathing Assessment: Diminished bilaterally Exercise Exercise Modalities Track Walk Assistive Device: Rollator Time: 20 Minutes Number of Laps: 22 Exercise SPO2: 91 Exercise HR: 95 Supplemental Oxygen: 6 LPM N/C (44% FiO2) Exercise BP: 124/62 Exercise Dyspnea: 2 Rate of Percieved Exertion: 2 Pt tolerated exercise well Upper Body Ergometer Resistance: 3-5 Revolutions per Minute: 38 Time: 20 Distance: 1.7 METS: 2.9 Exercise SPO2: 91 Exercise HR: 86 Supplemental Oxygen: 4 LPM N/C (36% FiO2) Exercise Dyspnea: 2 Rate of Percieved Exertion: 2 Pt tolerated exercise well Weights Exercise Sets: 2 Reps: 12 Weight: 4 lbs Time: 10 Minutes Exercise SpO2: 91 Exercise HR: 86 Supplemental Oxygen: 4 LPM N/C (36% FiO2) Exercise Dyspnea: 2 Rate of Perceived Exertion: 2 Pt tolerated exercise well Cool Down Cool Down Exercises: 10 min Post-Activity Vital Signs Post-Activity Vital signs SpO2: 92 % Pulse: 75 Supplemental Oxygen : 3 LPM N/C (32% FiO2) BP: 110/60 Dyspnea Index: 2 Blood Glucose: 181 Educational Classes/20 Minutes Progressive Muscle Relaxation Meditation (CS) documented in this encounter Plan of Treatment Upcoming Encounters Date Type Department Care Team (Late st Contact Info) Description 11/18/2024 10:30 AM EDT Office Visit [facility] Pulmonary Rehab [address] [place] [address] 11/23/2024 10:30 AM EDT Office Visit [facility] Pulmonary Rehab [address] [place] [address] 11/25/2024 10:30 AM EDT Office Visit [facility] Pulmonary Rehab [address] [place] [address] 11/26/2024 8:00 AM EDT Office Visit [facility] Endocrinology [address] [place] [address] Deuce Lofton, PharmD [address] [address] 11/30/2024 10:30 AM EDT Office Visit [facility] Pulmonary Rehab [address] [place] [address] 12/31/2024 8:40 AM EDT Office Visit [facility] Endocrinology [address] [place] [address] Sobia Kincaid S, CASTING MACHINE OPERATOR AUTOMATIC [address] [address] documented as of this encounter Visit Diagnoses Diagnosis Other emphysema (CMS/HCC)- Primary Other emphysema documented in this encounter Additional Health Concerns Assessment Noted Time A fall risk assessment has been complete d for the patient 09/01/2024 9:20 AM EDT A Body Mass Index follow-up plan has been documented for the patient 11/16/2024 11:48 AM EDT documented as of this encounter Care Teams Freight Traffic Consultant Relationship Specialty Start Date End Date Maximiliano Moreira MD [address] [place] [address] PCP - General 01/20/24 documented as of this encounter
--- OUTSIDE RECORDS SUMMARY | 2024-11-16 15:42 | XMS_ITS | Encounter Summary ---
Author Organization [facility] Address [address] [place] [address] Care Team Providers Care Acid Condenser Name Role Phone Maximiliano Moreira MD Primary Care Provider [phone] Encounter Details Date Type Department Care Team (Latest Contact Info) Description 10/29/2024 Travel Social History Tobacco Use Types Packs/Day Years [...] PM EDT documented as of this encounter Plan of Treatment Upcoming Encounters Date Type Department Care Team (Late st Contact Info) Description 11/18/2024 10:30 AM EDT Office Visit [facility] [address] [place] [address] 11/23/2024 10:30 AM EDT Office Visit [facility] [address] [place] [address] 11/25/2024 10:30 AM EDT Office Visit [facility] Pulmonary Rehab [address] [place] [address] 11/26/2024 8:00 AM EDT Office Visit [facility] Endocrinology [address] [place] [address] Deuce Lofton, PharmD 2195 [facility] [address] [place] [address] 11/30/2024 10:30 AM EDT Office Visit [facility] [address] [place] [address] 12/31/2024 8:40 AM EDT Office Visit [facility] Endocrinology [address] [place] [address] Sobia Kincaid, MICROSOFT APPLICATION DEVELOPER [address] [address] documented as of this encounter Visit Diagnoses Not on filedocumented in this encounter Additional Health Concerns Assessment Noted Time A fall risk assessment has been complete d for the patient 09/01/2024 9:20 AM EDT A Body Mass Index follow-up plan has been documented for the patient 10/29/2024 8:32 AM EDT documented as of this encounter Care Teams Acid Condenser Relationship Specialty Start Date End Date Maximiliano Moreira MD [address] [place] [address] PCP - General 01/20/24 documented as of this encounter
--- OUTSIDE RECORDS SUMMARY | 2024-11-16 15:42 | XMS_ITS | Clinical Summary ---
Author Organization [facility] Address [address] [facility] [address] [place] [address] Phone Care Team Providers Care Boat Detailer Name Role Phone Unavailable Unavailable Conditions or Problems No information available. Medications No information available. Medications Administered No information available. Allergies, Adverse Reactions, Alerts No information available. Results No information available. Plan of Care No information available. Procedures No information available. Vital Signs No information available. Immunizations No information available. Advance Directives No information available.
--- OUTSIDE RECORDS SUMMARY | 2024-11-16 15:42 | XMS_ITS | Encounter Summary ---
Author Organization [facility] Address [address] [place] [address] Care Team Providers Care Tailor Garment Fitter Name Role Phone Maximiliano Moreira MD Primary Care Provider [phone] Encounter Details Date Type Department Care Team (Latest Contact Info) Description 10/21/2024 Travel Social History Tobacco Use Types Packs/Day [...] Description 11/18/2024 10:30 AM EDT Office Visit [facility] [address] [place] [address] 11/23/2024 10:30 AM EDT [facility] [address] [place] [address] 11/25/2024 10:30 AM EDT Office Visit [facility] Pul[facility] Rehab [address] [place] [address] 11/26/2024 8:00 AM EDT Office Visit [facility] Endocrinology [address] [place] [address] Deuce Lofton, PharmD 2195 [facility] 125 [place] [address] 11/30/2024 10:30 AM EDT Office Visit [facility] [address] [place] [address] 12/31/2024 8:40 AM EDT Office Visit [facility] Endocrinology [address] [place] [address] Sobia Kincaid, MAXILLOFACIAL PROSTHETICS DENTIST [address] [address] documented as of this encounter Visit Diagnoses Not on filedocumented in this encounter Additional Health Concerns Assessment Noted Time A fall risk assessment has been complete d for the patient 09/01/2024 9:20 AM EDT A Body Mass Index follow-up plan has been documented for the patient 10/21/2024 11:49 AM EDT documented as of this encounter Care Teams Tailor Garment Fitter Relationship Specialty Start Date End Date Maximiliano Moreira MD [address] [place] [address] PCP - General 01/20/24 documented as of this encounter
--- OUTSIDE RECORDS SUMMARY | 2024-11-16 15:42 | XMS_ITS | Encounter Summary ---
Author Organization [facility] Address [address] [place] [address] Care Team Providers Care Christmas Tree Farm Worker Name Role Phone Maximiliano Moreira MD Primary Care Provider [phone] Encounter Details Date Type Department Care Team (Latest Contact Info) Description 09/28/2024 Travel Social History Tobacco Use Types Packs/Day [...] Description 11/18/2024 10:30 AM EDT Office Visit [facility] [address] [place] [address] 11/23/2024 10:30 AM EDT [facility] [address] [place] [address] 11/25/2024 10:30 AM EDT Office Visit [facility] Pulmonary Rehab [address] [place] [address] 11/26/2024 8:00 AM EDT Office Visit [facility] Endocrinology [address] [place] [address] Deuce Lofton, PharmD 2195 [facility] [address] [place] [address] 11/30/2024 10:30 AM EDT Office Visit [facility] [address] [place] [address] 12/31/2024 8:40 AM EDT Office Visit [facility] Endocrinology [address] [place] [address] Sobia Kincaid, CLINIC BUSINESS MANAGER [address] [address] documented as of this encounter Visit Diagnoses Not on filedocumented in this encounter Additional Health Concerns Assessment Noted Time A fall risk assessment has been complete d for the patient 09/01/2024 9:20 AM EDT A Body Mass Index follow-up plan has been documented for the patient 09/28/2024 2:19 PM EDT documented as of this encounter Care Teams Christmas Tree Farm Worker Relationship Specialty Start Date End Date Maximiliano Moreira MD [address] [place] [address] PCP - General 01/20/24 documented as of this encounter
--- OUTSIDE RECORDS SUMMARY | 2024-11-16 15:42 | XMS_ITS | Encounter Summary ---
Author Organization [facility] Address [address] [place] [address] Care Team Providers Care Engagement Lead Name Role Phone Maximiliano Moreira MD Primary Care Provider [phone] Encounter Details Date Type Department Care Team (Latest Contact Info) Description 10/19/2024 Travel Social History Tobacco Use Types Packs/Day [...] Description 11/18/2024 10:30 AM EDT [facility] [address] [place] [address] 11/23/2024 10:30 AM EDT [facility] [address] [place] [address] 11/25/2024 10:30 AM EDT Office Visit [facility] Pulmonary Rehab [address] [place] [address] 11/26/2024 8:00 AM EDT Office Visit [facility] Endocrinology [address] [place] [address] Deuce Lofton, PharmD 2195 [facility] [address] [place] [address] 11/30/2024 10:30 AM EDT [facility] [address] [place] [address] 12/31/2024 8:40 AM EDT Office Visit [facility] Endocrinology [address] [place] [address] Sobia Kincaid, CONFERENCE COORDINATOR [address] [address] documented as of this encounter Visit Diagnoses Not on filedocumented in this encounter Additional Health Concerns Assessment Noted Time A fall risk assessment has been complete d for the patient 09/01/2024 9:20 AM EDT A Body Mass Index follow-up plan has been documented for the patient 10/19/2024 11:36 AM EDT documented as of this encounter Care Teams Engagement Lead Relationship Specialty Start Date End Date Maximiliano Moreira MD [address] [place] [address] PCP - General 01/20/24 documented as of this encounter
--- OUTSIDE RECORDS SUMMARY | 2024-11-16 15:42 | XMS_ITS | Encounter Summary ---
Author Organization [facility] [place] [address] Care Team Providers Care Retail Coordinator Name Role Phone Unavailable Primary Care Provider Unavailabl e Encounter Details Date Type Department Care Team (Latest Contact Info) Description 09/19/2024 Travel Social History Tobacco Use Types Packs/Day [...] on file documented as of this encounter Plan of Treatment Not on file documented as of this encounter Visit Diagnoses Not on filedocumented in this encounter
--- OUTSIDE RECORDS SUMMARY | 2024-11-16 15:42 | XMS_ITS | Encounter Summary ---
Author Organization [facility] Address [address] [place] [address] Care Team Providers Care Risk Assessment Consultant Name Role Phone Maximiliano Moreira MD Primary Care Provider [phone] Encounter Details Date Type Department Care Team (Latest Contact Info) Description 10/12/2024 Travel Social History Tobacco Use Types Packs/Day [...] Description 11/18/2024 10:30 AM EDT Office Visit [facility] [address] [place] [address] 11/23/2024 10:30 AM EDT [facility] [address] [place] [address] 11/25/2024 10:30 AM EDT Office Visit [facility] Pulmonary Rehab [address] [place] [address] 11/26/2024 8:00 AM EDT Office Visit [facility] Endocrinology [address] [place] [address] Deuce Lofton, PharmD 2195 [facility] [address] [place] [address] 11/30/2024 10:30 AM EDT Office Visit [facility] [address] [place] [address] 12/31/2024 8:40 AM EDT Office Visit [facility] Endocrinology [address] [place] [address] Sobia Kincaid, BROADCAST SYSTEMS ENGINEER [address] [address] documented as of this encounter Visit Diagnoses Not on filedocumented in this encounter Additional Health Concerns Assessment Noted Time A fall risk assessment has been complete d for the patient 09/01/2024 9:20 AM EDT A Body Mass Index follow-up plan has been documented for the patient 10/12/2024 11:59 AM EDT documented as of this encounter Care Teams Risk Assessment Consultant Relationship Specialty Start Date End Date Maximiliano Moreira MD [address] [place] [address] PCP - General 01/20/24 documented as of this encounter
--- OUTSIDE RECORDS SUMMARY | 2024-11-16 15:42 | XMS_ITS | Encounter Summary ---
Author Organization [facility] Address [address] [place] [address] Care Team Providers Care Finisher Denture Name Role Phone Maximiliano Moreira MD Primary Care Provider [phone] Encounter Details Date Type Department Care Team (Latest Contact Info) Description 09/17/2024 Travel Social History Tobacco Use Types Packs/Day [...] Description 11/18/2024 10:30 AM EDT [facility] Visit [facility] [address] [place] [address] 11/23/2024 10:30 AM EDT [facility] [address] [place] [address] 11/25/2024 10:30 AM EDT Office Visit [facility] Pulmonary Rehab [address] [place] [address] 11/26/2024 8:00 AM EDT Office Visit [facility] Endocrinology [address] [place] [address] Deuce Lofton, PharmD 2195 [facility] 125 [place] [address] 11/30/2024 10:30 AM EDT [facility] [address] [place] [address] 12/31/2024 8:40 AM EDT Office Visit [facility] Endocrinology [address] [place] [address] Sobia Kincaid, GEOLOGY INSTRUCTOR [address] [address] documented as of this encounter Visit Diagnoses Not on filedocumented in this encounter Additional Health Concerns Assessment Noted Time A fall risk assessment has been complete d for the patient 09/01/2024 9:20 AM EDT A Body Mass Index follow-up plan has been documented for the patient 09/17/2024 12:43 PM EDT documented as of this encounter Care Teams Finisher Denture Relationship Specialty Start Date End Date Maximiliano Moreira MD [address] [place] [address] PCP - General 01/20/24 documented as of this encounter
--- OUTSIDE RECORDS SUMMARY | 2024-11-16 15:42 | XMS_ITS | Encounter Summary ---
Author Organization [facility] Address [address] [place] [address] Care Team Providers Care Human Resources Communications Manager Name Role Phone Maximiliano Moreira MD Primary Care Provider [phone] Encounter Details Date Type Department Care Team (Latest Contact Info) Description 11/11/2024 Travel Social History Tobacco Use Types Packs/Day [...] Description 11/18/2024 10:30 AM EDT Office Visit [facility] [address] [place] [address] 11/23/2024 10:30 AM EDT [facility] [address] [place] [address] 11/25/2024 10:30 AM EDT Office Visit [facility] Pulmonary Rehab [address] [place] [address] 11/26/2024 8:00 AM EDT Office Visit [facility] Endocrinology [address] [place] [address] Deuce Lofton, PharmD 2195 [facility] [address] [place] [address] 11/30/2024 10:30 AM EDT [facility] [address] [place] [address] 12/31/2024 8:40 AM EDT Office Visit [facility] Endocrinology [address] [place] [address] Sobia Kincaid, AUDIO PRODUCTION INSTRUCTOR [address] [address] documented as of this encounter Visit Diagnoses Not on filedocumented in this encounter Additional Health Concerns Assessment Noted Time A fall risk assessment has been complete d for the patient 09/01/2024 9:20 AM EDT A Body Mass Index follow-up plan has been documented for the patient 11/11/2024 12:01 PM EDT documented as of this encounter Care Teams Human Resources Communications Manager Relationship Specialty Start Date End Date Maximiliano Moreira MD [address] [place] [address] PCP - General 01/20/24 documented as of this encounter
--- OUTSIDE RECORDS SUMMARY | 2024-11-16 15:42 | XMS_ITS | Encounter Summary ---
Author Organization [facility] Address [address] [place] [address] Care Team Providers Care Rn Production Name Role Phone Maximiliano Moreira MD Primary Care Provider [phone] Encounter Details Date Type Department Care Team (Latest Contact Info) Description 09/30/2024 Travel Social History Tobacco Use Types Packs/Day [...] Description 11/18/2024 10:30 AM EDT [facility] [address] [place] [address] 11/23/2024 10:30 AM EDT [facility] [address] [place] [address] 11/25/2024 10:30 AM EDT Office Visit [facility] Pulmonary Rehab [address] [place] [address] 11/26/2024 8:00 AM EDT Office Visit [facility] Endocrinology [address] [place] [address] Deuce Lofton, PharmD 2195 [facility] [address] [place] [address] 11/30/2024 10:30 AM EDT [facility] [address] [place] [address] 12/31/2024 8:40 AM EDT Office Visit [facility] Endocrinology [address] [place] [address] Sobia Kincaid, SHIRT FOLDING MACHINE OPERATOR [address] [address] documented as of this encounter Visit Diagnoses Not on filedocumented in this encounter Additional Health Concerns Assessment Noted Time A fall risk assessment has been complete d for the patient 09/01/2024 9:20 AM EDT A Body Mass Index follow-up plan has been documented for the patient 09/30/2024 2:41 PM EDT documented as of this encounter Care Teams Rn Production Relationship Specialty Start Date End Date Maximiliano Moreira MD [address] [place] [address] PCP - General 01/20/24 documented as of this encounter
--- OUTSIDE RECORDS SUMMARY | 2024-11-16 15:42 | XMS_ITS | Encounter Summary ---
Author Organization [facility] Address [address] [place] [address] Care Team Providers Care Nuclear Fuel Enrichment Technician Name Role Phone Maximiliano Moreira MD Primary Care Provider [phone] Encounter Details Date Type Department Care Team (Latest Contact Info) Description 11/16/2024 Travel Social History Tobacco Use Types Packs/Day [...] Description 11/18/2024 10:30 AM EDT Office Visit [facility] [address] [place] [address] 11/23/2024 10:30 AM EDT Office Visit [facility] [address] [place] [address] 11/25/2024 10:30 AM EDT Office Visit [facility] Pulmonary Rehab [address] [place] [address] 11/26/2024 8:00 AM EDT Office Visit [facility] Endocrinology [address] [place] [address] Deuce Lofton, PharmD 2195 [facility] [address] [place] [address] 11/30/2024 10:30 AM EDT Office Visit [facility] [address] [place] [address] 12/31/2024 8:40 AM EDT Office Visit [facility] Endocrinology [address] [place] [address] Sobia Kincaid, UTILIZATION REVIEW SPECIALIST [address] [address] documented as of this encounter Visit Diagnoses Not on filedocumented in this encounter Additional Health Concerns Assessment Noted Time A fall risk assessment has been complete d for the patient 09/01/2024 9:20 AM EDT A Body Mass Index follow-up plan has been documented for the patient 11/16/2024 11:48 AM EDT documented as of this encounter Care Teams Nuclear Fuel Enrichment Technician Relationship Specialty Start Date End Date Maximiliano Moreira MD [address] [place] [address] PCP - General 01/20/24 documented as of this encounter
--- OUTSIDE RECORDS SUMMARY | 2024-11-16 15:42 | XMS_ITS | Encounter Summary ---
Author Organization [facility] Address [address] [place] [address] Care Team Providers Care Corn Detasseler Machine Operator Name Role Phone Maximiliano Moreira MD Primary Care Provider Encounter Details Date Type Department Care Team (Late st Contact Info) Description 10/19/2024 Telephone [facility] Endocrinology [address] [place] [address] Deuce Lofton P, PharmD [address] [address] Social History Tobacco Use Types Packs/Day Years [...] as of this encounter Miscellaneous Notes * Telephone Encounter - IDALIA TAVERAS - 10/19/2024 9:56 AM EDT Pt has an appt with Deuce on 10/29, she can do that day in afternoon, but can't do Saturday's or Saturday's. Thank you documented in this encounter Plan of Treatment Upcoming Encounters Date Type Department Care Team (Late st Contact Info) Description 11/18/2024 10:30 AM EDT Office Visit [facility] [address] [place] [address] 11/23/2024 10:30 AM EDT Office Visit [facility] Pulmonary Rehab [address] [place] [address] 11/25/2024 10:30 AM EDT Office Visit [facility] Pulmonary Rehab [address] [place] [address] 11/26/2024 8:00 AM EDT Office Visit [facility] Endocrinology [address] [place] [address] Deuce Lofton, PharmD [address] [address] 11/30/2024 10:30 AM EDT Office Visit [facility] Pulmonary Rehab [address] [place] [address] 12/31/2024 8:40 AM EDT Office Visit [facility] Endocrinology [address] [place] [address] Sobia Kincaid S, DEMAND INSPECTOR [address] [address] documented as of this encounter Visit Diagnoses Not on filedocumented in this encounter Additional Health Concerns Assessment Noted Time A fall risk assessment has been complete d for the patient 09/01/2024 9:20 AM EDT A Body Mass Index follow-up plan has been documented for the patient 10/19/2024 11:36 AM EDT documented as of this encounter Care Teams Corn Detasseler Machine Operator Relationship Specialty Start Date End Date Maximiliano Moreira MD [address] [facility] [place] [address] PCP - General 01/20/24 documented as of this encounter
--- OUTSIDE RECORDS SUMMARY | 2024-11-16 15:42 | XMS_ITS | Encounter Summary ---
Author Organization [facility] Address [address] [place] [address] Care Team Providers Care Core Blower Operator Name Role Phone Maximiliano Moreira MD Primary Care Provider [phone] Encounter Details Date Type Department Care Team (Latest Contact Info) Description 09/23/2024 Travel Social History Tobacco Use Types Packs/Day [...] Description 11/18/2024 10:30 AM EDT Office Visit [facility] [address] [place] [address] 11/23/2024 10:30 AM EDT [facility] [address] [place] [address] 11/25/2024 10:30 AM EDT Office Visit [facility] Pulmonary Rehab [address] [place] [address] 11/26/2024 8:00 AM EDT Office Visit [facility] Endocrinology [address] [place] [address] Deuce Lofton, PharmD 2195 [facility] 125 [address] 11/30/2024 10:30 AM EDT [facility] Visit [facility] [address] [place] [address] 12/31/2024 8:40 AM EDT Office Visit [facility] Endocrinology [address] [place] [address] Sobia Kincaid, AIR BAG BUILDER [address] [phone] documented as of this encounter Visit Diagnoses Not on filedocumented in this encounter Additional Health Concerns Assessment Noted Time A fall risk assessment has been complete d for the patient 09/01/2024 9:20 AM EDT A Body Mass Index follow-up plan has been documented for the patient 09/23/2024 1:13 PM EDT documented as of this encounter Care Teams Core Blower Operator Relationship Specialty Start Date End Date Maximiliano Moriera MD [address] [place] [address] PCP - General 01/20/24 documented as of this encounter
--- OUTSIDE RECORDS SUMMARY | 2024-11-16 15:42 | XMS_ITS | Encounter Summary ---
Author Organization [facility] Address [address] [place] [address] Care Team Providers Care Technical Solutions Director Name Role Phone Maximiliano Moreira MD Primary Care Provider [phone] Encounter Details Date Type Department Care Team (Latest Contact Info) Description 10/28/2024 Travel Social History Tobacco Use Types Packs/Day [...] Description 11/18/2024 10:30 AM EDT Office Visit [facility] [address] [place] [address] 11/23/2024 10:30 AM EDT [facility] [address] [place] [address] 11/25/2024 10:30 AM EDT Office Visit [facility] Pulmonary Rehab [address] [place] [address] 11/26/2024 8:00 AM EDT Office Visit [facility] Endocrinology [address] [place] [address] Deuce Lofton, PharmD 2195 [facility] [address] [place] [address] 11/30/2024 10:30 AM EDT Office Visit [facility] [address] [place] [address] 12/31/2024 8:40 AM EDT Office Visit [facility] Endocrinology [address] [place] [address] Sobia Kincaid, BAKERY SALES CLERK [address] [phone] documented as of this encounter Visit Diagnoses Not on filedocumented in this encounter Additional Health Concerns Assessment Noted Time A fall risk assessment has been complete d for the patient 09/01/2024 9:20 AM EDT A Body Mass Index follow-up plan has been documented for the patient 10/28/2024 12:47 PM EDT documented as of this encounter Care Teams Technical Solutions Director Relationship Specialty Start Date End Date Maximiliano Moreira MD [address] [place] [address] PCP - General 01/20/24 documented as of this encounter
--- OUTSIDE RECORDS SUMMARY | 2024-11-16 15:42 | XMS_ITS | Encounter Summary ---
Author Organization [facility] Address [address] [place] [address] Care Team Providers Care Sales Agent Food Vending Service Name Role Phone Maximiliano Moreira MD Primary Care Provider [phone] Encounter Details Date Type Department Care Team (Latest Contact Info) Description 10/14/2024 Travel Social History Tobacco Use Types Packs/Day [...] Visit [facility] [address] [place] [address] 11/23/2024 10:30 AM EDT Office Visit [facility] [address] [place] [address] 11/25/2024 10:30 AM EDT Office Visit [facility] Pulmonary Rehab [address] [place] [address] 11/26/2024 8:00 AM EDT Office Visit [facility] Endocrinology [address] [place] [address] Deuce Lofton, PharmD 2195 [facility] 125 [place] [address] 11/30/2024 10:30 AM EDT Office Visit [facility] [address] [place] [address] 12/31/2024 8:40 AM EDT Office Visit [facility] Endocrinology [address] [place] [address] Sobia Kincaid, AQUATIC PHYSIOTHERAPIST [address] [address] documented as of this encounter Visit Diagnoses Not on filedocumented in this encounter Additional Health Concerns Assessment Noted Time A fall risk assessment has been complete d for the patient 09/01/2024 9:20 AM EDT A Body Mass Index follow-up plan has been documented for the patient 10/14/2024 11:40 AM EDT documented as of this encounter Care Teams Sales Agent Food Vending Service Relationship Specialty Start Date End Date Maximiliano Moreira MD [address] [place] [address] PCP - General 01/20/24 documented as of this encounter
--- OUTSIDE RECORDS SUMMARY | 2024-11-16 15:42 | XMS_ITS | Encounter Summary ---
Author Organization [facility] Address [address] [place] [address] Care Team Providers Care Edge Inker Heels Name Role Phone Maximiliano Moreira MD Primary Care Provider [phone] Encounter Details Date Type Department Care Team (Latest Contact Info) Description 11/04/2024 Travel Social History Tobacco Use Types Packs/Day [...] Description 11/18/2024 10:30 AM EDT Office Visit [facility] [address] [place] [address] 11/23/2024 10:30 AM EDT [facility] [address] [place] [address] 11/25/2024 10:30 AM EDT Office Visit [facility] Pulmonary Rehab [address] [place] [address] 11/26/2024 8:00 AM EDT Office Visit [facility] Endocrinology [address] [place] [address] Deuce Lofton, PharmD 2195 [facility] [address] [place] [address] 11/30/2024 10:30 AM EDT [facility] [address] [place] [address] 12/31/2024 8:40 AM EDT Office Visit [facility] Endocrinology [address] [place] [address] Sobia Kincaid, FLORAL ARRANGER [address] [address] documented as of this encounter Visit Diagnoses Not on filedocumented in this encounter Additional Health Concerns Assessment Noted Time A fall risk assessment has been complete d for the patient 09/01/2024 9:20 AM EDT A Body Mass Index follow-up plan has been documented for the patient 11/04/2024 12:54 PM EDT documented as of this encounter Care Teams Edge Inker Heels Relationship Specialty Start Date End Date Maximiliano Moreira MD [address] [place] [address] PCP - General 01/20/24 documented as of this encounter
--- OUTSIDE RECORDS SUMMARY | 2024-11-16 15:42 | XMS_ITS | Encounter Summary ---
Author Organization [facility] Address [address] [place] [address] Care Team Providers Care Print Traffic Manager Name Role Phone Maximiliano Moreira MD Primary Care Provider [phone] Encounter Details Date Type Department Care Team (Latest Contact Info) Description 10/07/2024 Travel Social History Tobacco Use Types Packs/Day [...] Description 11/18/2024 10:30 AM EDT Office Visit [facility] [address] [place] [address] 11/23/2024 10:30 AM EDT [facility] [address] [place] [address] 11/25/2024 10:30 AM EDT Office Visit [facility] Pulmonary Rehab [address] [place] [address] 11/26/2024 8:00 AM EDT Office Visit [facility] Endocrinology [address] [place] [address] Deuce Lofton, PharmD 2195 [facility] 125 [place] [address] 11/30/2024 10:30 AM EDT Office Visit [facility] [address] [place] [address] 12/31/2024 8:40 AM EDT Office Visit [facility] Endocrinology [address] [place] [address] Sobia iKncaid, INSURANCE RATER [address] [address] documented as of this encounter Visit Diagnoses Not on filedocumented in this encounter Additional Health Concerns Assessment Noted Time A fall risk assessment has been complete d for the patient 09/01/2024 9:20 AM EDT A Body Mass Index follow-up plan has been documented for the patient 10/07/2024 11:51 AM EDT documented as of this encounter Care Teams Print Traffic Manager Relationship Specialty Start Date End Date Maximiliano Moreira MD [address] [place] [address] PCP - General 01/20/24 documented as of this encounter
--- OUTSIDE RECORDS SUMMARY | 2024-11-16 15:42 | XMS_ITS | Encounter Summary ---
Author Organization [facility] Address [address] [place] [address] Care Team Providers Care Legal Instruments Examiner Name Role Phone Maximiliano Moreira MD Primary Care Provider [phone] Encounter Details Date Type Department Care Team (Latest Contact Info) Description 10/05/2024 Travel Social History Tobacco Use Types Packs/Day [...] Description 11/18/2024 10:30 AM EDT [facility] Visit [facility] [address] [place] [address] 11/23/2024 10:30 AM EDT [facility] [address] [place] [address] 11/25/2024 10:30 AM EDT Office Visit [facility] Pulmonary Rehab [address] [place] [address] 11/26/2024 8:00 AM EDT Office Visit [facility] Endocrinology [address] [place] [address] Deuce Lofton, PharmD 2195 [facility] 125 [place] [address] 11/30/2024 10:30 AM EDT [facility] [address] [place] [address] 12/31/2024 8:40 AM EDT Office Visit [facility] Endocrinology [address] [place] [address] Sobia Kincaid, ICE CREAM VAN VENDOR [address] [address] documented as of this encounter Visit Diagnoses Not on filedocumented in this encounter Additional Health Concerns Assessment Noted Time A fall risk assessment has been complete d for the patient 09/01/2024 9:20 AM EDT A Body Mass Index follow-up plan has been documented for the patient 10/05/2024 1:42 PM EDT documented as of this encounter Care Teams Legal Instruments Examiner Relationship Specialty Start Date End Date Maximiliano Moreira MD [address] [place] [address] PCP - General 01/20/24 documented as of this encounter
--- OUTSIDE RECORDS SUMMARY | 2024-11-16 15:42 | XMS_ITS | Encounter Summary ---
Author Organization [facility] Address [address] [place] [address] Care Team Providers Care Animal Care Service Worker Name Role Phone Maximiliano Moreira MD Primary Care Provider [phone] Encounter Details Date Type Department Care Team (Latest Contact Info) Description 11/02/2024 Travel Social History Tobacco Use Types Packs/Day [...] Description 11/18/2024 10:30 AM EDT Office Visit [facility] [address] [place] [address] 11/23/2024 10:30 AM EDT [facility] Visit [facility] [address] [place] [address] 11/25/2024 10:30 AM EDT Office Visit [facility] Rehab [address] [place] [address] 11/26/2024 8:00 AM EDT Office Visit [facility] Endocrinology [address] [place] [address] Deuce Lofton, PharmD 2195 [facility] 125 [place] [address] 11/30/2024 10:30 AM EDT Office Visit [facility] [address] [place] [address] 12/31/2024 8:40 AM EDT Office Visit [facility] Endocrinology [address] [place] [address] Sobia Kincaid, CHRONIC MANAGER [address] [address] documented as of this encounter Visit Diagnoses Not on filedocumented in this encounter Additional Health Concerns Assessment Noted Time A fall risk assessment has been complete d for the patient 09/01/2024 9:20 AM EDT A Body Mass Index follow-up plan has been documented for the patient 11/02/2024 12:02 PM EDT documented as of this encounter Care Teams Animal Care Service Worker Relationship Specialty Start Date End Date Maximiliano Moreira MD [address] [place] [address] PCP - General 01/20/24 documented as of this encounter
--- OUTSIDE RECORDS SUMMARY | 2024-11-16 15:42 | XMS_ITS | Encounter Summary ---
Author Organization [facility] Address [address] [place] [address] Care Team Providers Care Youtuber Name Role Phone Maximiliano Moreira MD Primary Care Provider [phone] Encounter Details Date Type Department Care Team (Latest Contact Info) Description 11/09/2024 Travel Social History Tobacco Use Types Packs/Day [...] Description 11/18/2024 10:30 AM EDT Office Visit [facility] [address] [place] [address] 11/23/2024 10:30 AM EDT Office [facility] [address] [place] [address] 11/25/2024 10:30 AM EDT Office Visit [facility] Pulmonary Rehab [address] [place] [address] 11/26/2024 8:00 AM EDT Office Visit [facility] Endocrinology [address] [place] [address] Deuce Lofton, PharmD [address] [facility] [address] [place] [address] 11/30/2024 10:30 AM EDT Office Visit [facility] [address] [place] [address] 12/31/2024 8:40 AM EDT Office Visit [facility] Endocrinology [address] [place] [address] Sobia Kincaid, DERRICK BARGE OPERATOR [address] [address] documented as of this encounter Visit Diagnoses Not on filedocumented in this encounter Additional Health Concerns Assessment Noted Time A fall risk assessment has been complete d for the patient 09/01/2024 9:20 AM EDT A Body Mass Index follow-up plan has been documented for the patient 11/09/2024 11:56 AM EDT documented as of this encounter Care Teams Youtuber Relationship Specialty Start Date End Date Maximiliano Moreira MD [address] [place] [address] PCP - General 01/20/24 documented as of this encounter
--- OUTSIDE RECORDS SUMMARY | 2024-11-16 15:43 | XMS_ITS ---
Author Organization [facility] Address [address] [place] [address] Care Team Providers Care Barrow Worker Name Role Phone Maximiliano Moreira MD Primary Care Provider [phone] Transplant Episode Lung Candidate [facility] ([place], [place]) [facility] Evaluation began on 02/24/2024 Marked as Active on 02/24/2024 Lung CoordinatorJackie Pimentel RN Fax: N/A Email: N/A Care Team Name Role Phone Fax Email Jackie Pimentel RN Lung Coordinator [phone] N/A N/A Events Pre-Transplant Referred: 01/08/2024 Evaluation began: 02/24/2024 Committee: 08/20/2024 Appointments (10/16/2024 - 12/16/2024) When With Visit Type Description 10/29/2024 Daniel Christopher Endocrinology - Return Type 2 diabetes mellitus with hyperglycemia, with long-term current use of insulin (CMS/HCC) 11/12/2024 Daniel Gutierrez Nutrition DSME Type 2 di abetes mellitus with hyperglycemia, with long-term current use of insulin (CMS/[facility]) (Primary Dx) 11/26/2024 Daniel Christopher Endocrinology - Return
--- OUTSIDE RECORDS SUMMARY | 2024-11-16 15:43 | XMS_ITS | Clinical Summary ---
Author Organization [facility] Address [address] [place] [address] Care Team Providers Care Patient Partner Name Role Phone Maximiliano Moreira MD Primary Care Provider [phone] Allergies Active Allergy Reactions Criticality Noted Date Comments Formoterol Swelling,Other - please document in the comment field High 04/04/2022 Other reaction(s): throat blisters, tongue swelling Liraglutide Other - please document in the comment field Low 11/08/2021 Other reaction(s): GI Intolerance Metformin Diarrhea Medium 04/04/2022 Methylprednisolone Palpitations Low 02/07/2022 Prednisone Palpitations Low 12/24/2023 Sitagliptin Other - please document in the comment field Low 04/04/2022 Other reaction(s): GI Intolerance, stomach pain Medications ipratropium-al buterol (Duo-Neb) 0.5-2.5 mg/3 mL nebulizer solution Inhale 3 mL 4 (four) times a day if needed for wheezing or shortness of breath. 4 Active budesonide (Pulmicort) 0.25 MG/2ML nebulizer solution Inhale 2 mL (0.25 mg) 2 (two) times a day. 4 Active Azelastine-Flu ticasone 137-50 MCG/ACT suspension 137 mcg 1 (one) time each day. 4 Active metoprolol tartrate (Lopressor) 50 MG tablet Take 1.5 tablets (75 mg) by mouth 2 (two) times a day. 4 Active montelukast (Singulair) 10 MG tablet Take 1 tablet (10 mg) by mouth every night. 3 Active Umeclidinium-V ilanterol (Anoro Ellipta) 62.5-25 MCG/ACT aerosol powder aerosol powder Inhale 1 Inhalation 1 (one) time each day. 4 Active atorvastatin (Lipitor) 10 MG tablet Take 1 tablet (10 mg) by mouth 1 (one) time each day. Active levothyroxine (Synthroid, Levoxyl) 100 MCG tablet Take 1 tablet (100 mcg) by mouth 1 (one) time each day in the morning. Active spironolactone (Aldactone) 25 MG tablet Take 1 tablet by mouth daily. Active polyethylene glycol (Miralax) 17 GM/SCOOP powder DISSOLVE 17 GRAMS OF POWDER INTO 4 TO 8 OUNCES OF WATER, JUICE, SODA, COFFEE, OR TEA THEN DRINK EVERY DAY Active multivitamin (Theragran-M) tablet Take 1 tablet by mouth 1 (one) time each day. Active Continuous Glucose Sensor (Dexcom G7 Sensor) misc 1 each every 10 (ten) days. 9 each 3 5 026 Active Continuous Glucose Grocery Clerk Stocking (Dexcom G7 Grocery Clerk Stocking) device 1 each daily. Use as directed 1 each 5 026 Active Insulin Glargine Max SoloStar 300 UNIT/ML solution pen-injector Inject 50 Units under the skin nightly. 10 mL 5 5 025 Active BD Pen Needle Fatuma U/F 32G X 4 MM misc 4x/day as directed 120 each 5 5 Active furosemide (Lasix) 40 MG tablet Take 1 tablet by mouth daily. + PRN for swelling Active NovoLOG FLEXPEN 100 UNIT/ML injection pen Inject subcutaneous 4 units before breakfast and lunch, 5 units before dinner plus 1:30>150 SS, max dose 30u/day 15 mL 5 5 Active NovoLOG FLEXPEN 100 UNIT/ML injection pen Inject subcutaneous 3 units with meals plus 1:30>150 SS, max dose 30u/day 10 mL 5 5 025 Discontin ued(Reord er) Active Problems Patient Care Coordination No te Formatting of this note migh t be different from the original. Evaluation completed Listing auth obtained. Pending listing appointment and [facility] clearance (weightloss) Problem Noted Date Diagnosed Date Type 2 diabetes mellitus with hyperosmolarity wi thout coma 09/09/2024 Hypertension 09/09/2024 Hyperlipidemia 09/09/2024 Class 1 obesity with serious comorbidity and body mass index (BMI) of 31.0 to 31.9 in adult 09/09/2024 Neuropathy 09/09/2024 COPD (chronic obstructive pulmonary disease) Encounter for diabetic foot exam 03/18/2024 Encounters Date Type Department Care Team Description 11/16/2024 10:30 AM EDT Office Visit [facility] Pulmonary Rehab [address] [place] [address] Other emphysema (CMS/HCC) (Primary Dx) 11/16/2024 Travel 11/12/2024 4:00 PM EDT Education [facility] Diabetes Education [address] [place] [address] Henny Cervantes, COLLINS Type 2 diabetes mellitus with hyperglycemia, with long-term current use of insulin (CMS/HCC) (Primary Dx) 11/11/2024 10:30 AM EDT Office Visit [facility] Pulmonary Rehab [address] [place] [phone] Other emphysema (CMS/HCC) (Primary Dx) 11/11/2024 Travel 11/09/2024 10:30 AM EDT Office Visit [facility] Pulmonary Rehab [address] [place] [address] Other emphysema (CMS/HCC) (Primary Dx) 11/09/2024 Travel 11/04/2024 10:30 AM EDT Office Visit [facility] Pulmonary Rehab [address] [place] [address] Other emphysema (CMS/HCC) (Primary Dx) 11/04/2024 Travel 11/02/2024 10:30 AM EDT Office Visit [facility] Pulmonary Rehab [address] [place] [address] Chronic obstructive pulmonary disease, unspecified COPD type (CMS/HCC) (Primary Dx); Other emphysema (CMS/HCC) 11/02/2024 Travel 10/29/2024 8:30 AM EDT Office Visit [facility] Endocrinology [address] [place] [address] Deuce Lofton, PharmD Type 2 diabetes mellitus with hyperglycemia, with long-term current use of insulin (CMS/HCC) 10/29/2024 Travel 10/28/2024 10:30 AM EDT Office Visit [facility] Pulmonary Rehab [address] [place] [address] Chronic obstructive pulmonary disease, unspecified COPD type (CMS/HCC) (Primary Dx) 10/28/2024 Travel 10/21/2024 10:30 AM EDT Office Visit [facility] Pulmonary Rehab [address] [place] [address] Other emphysema (CMS/HCC) (Primary Dx) 10/21/2024 Travel 10/19/2024 10:30 AM EDT Office Visit [facility] Pulmonary Rehab [address] [place] [address] Other emphysema (CMS/HCC) (Primary Dx); Chronic obstructive pulmonary disease, unspecified COPD type (CMS/HCC) 10/19/2024 Travel 10/19/2024 Telephone [facility] Endocrinology [address] [place] [address] Deuce Lofton, PharmD 10/14/2024 10:30 AM EDT Office Visit [facility] Pulmonary Rehab [address] [place] [address] Other emphysema (CMS/HCC) (Primary Dx) 10/14/2024 Travel 10/12/2024 10:30 AM EDT Office Visit [facility] Pulmonary Rehab [address] [place] [address] Other emphysema (CMS/HCC) (Primary Dx) 10/12/2024 Travel 10/07/2024 10:30 AM EDT Office Visit [facility] [address] [place] [address] Other emphysema (CMS/HCC) (Primary Dx) 10/07/2024 Travel 10/05/2024 10:30 AM EDT Office Visit [facility] [address] [place] [address] Other emphysema (CMS/HCC) (Primary Dx) 10/05/2024 Travel 09/30/2024 10:30 AM EDT Office Visit [facility] Pulmonary Rehab [address] [place] [address] Other emphysema (CMS/HCC) (Primary Dx) 09/30/2024 Travel 09/28/2024 10:30 AM EDT Office Visit [facility] Pulmonary Rehab [address] [place] [address] Other emphysema (CMS/HCC) (Primary Dx) 09/28/2024 Travel 09/23/2024 10:30 AM EDT Office Visit [facility] Pulmonary Rehab [address] [place] [address] Pre-transplant evaluation for lung transplant; Other emphysema (CMS/HCC) 09/23/2024 Travel 09/17/2024 9:30 AM EDT Office Visit [facility] Endocrinology [address] [place] [address] Deuce Lofton, PharmD Type 2 diabetes mellitus with hyperglycemia, with long-term current use of insulin ([facility]) 09/17/2024 Travel 09/09/2024 9:00 AM EDT Office Visit [facility] Endocrinology [address] [place] [address] Sobia Kincaid, SECURITY SYSTEMS SPECIALIST Type 2 diabetes mellitus with hyperglycemia, with long-term current use of insulin ([facility]) (Primary Dx); Encounter for diabetic foot exam ([facility]); Hypertension, unspecified type; Hyperlipidemia, unspecified hyperlipidemia type; Class 1 obesity with serious comorbidity and body mass index (BMI) of 31.0 to 31.9 in adult, unspecified obesity type; Neuropathy 09/09/2024 Telephone [facility] Endocrinology [facility] [place] [address] Sobia Kincaid APRN Prior-authorization/in surance Verification 09/09/2024 Travel 09/03/2024 Orders Only [facility] Transplant [place] [address] [address] Jackie Pimentel, RN Pre-transplant evaluation for lung transplant (Primary Dx); Type 2 diabetes mellitus with hyperosmolarity without coma, unspecified whether halfway insulin use ([facility]) 09/03/2024 Orders Only [place] [address] [address] Silvino Burkett, PharmD 09/02/2024 Orders Only [place] [address] [address] Jackie Pimentel, RN Pre-transplant evaluation for lung transplant (Primary Dx); Other emphysema (CMS/[facility]) 09/01/2024 12:19 PM EDT - 09/01/2024 11:59 PM EDT Hospital Encounter [facility] Pul[facility] Function Testing [address] [place] [phone] Pre-transplant evaluation for lung transplant Discharge Disposition: Home or Self Care 09/01/2024 12:19 PM EDT - 09/01/2024 11:59 PM EDT Hospital Encounter [facility] Function Testing [address] [place] [address] Pre-transplant evaluation for lung transplant Discharge Disposition: Home or Self Care 09/01/2024 12:18 PM EDT Hospital Encounter [facility] Pul[facility] Function Testing [address] [place] [phone] Pre-transplant evaluation for lung transplant Discharge Disposition: Home or Self Care 09/01/2024 9:30 AM EDT Office Visit [facility] Transplant [place] [address] [address] Hipolito Middleton MD Medicine, Transplant Lung End stage chronic obstructive pulmonary disease (CMS/HCC) (Primary Dx); Pre-transplant evaluation for lung transplant; YANA (obstructive sleep apnea); Centrilobular emphysema (CMS/HCC); Class 1 obesity due to excess calories without serious comorbidity with body mass index (BMI) of 32.0 to 32.9 in adult 09/01/2024 9:00 AM EDT Clinical Support [facility] Trans[facility] [address] [address] Pre-transplant evaluation for lung transplant 09/01/2024 Travel 08/31/2024 Orders Only [facility] Trans[facility] [place] [address] [address] Jackie Pimentel, IVANNA Pre-transplant evaluation for lung transplant (Primary Dx) 08/28/2024 Travel 08/27/2024 Telephone [facility] Transplant [place] [address] [address] Jackie Pimentel, RN Appointment 08/17/2024 Travel from Last 3 Months Family History Medical History Relation Name Comments Cancer Father Aj Colon cancer Father Aj Diabetes Father Aj Arthritis Mother Rommel COPD Mother Rommel COPD Sister 1 Asthma Sister 2 Charleen Diabetes Sister 2 Charleen Relation Name Status Comments Father Aj Alive Mother Rommel Alive Sister 1 Sister 2 Charleen Alive Social History Tobacco Use Types Packs/Day Years Used Date Smoking Tobacco: Former Cigarettes 2 017 - 1968 Smokeless Tobacco: Never Tobacco Cessation:Counseling Given: Not Answered PHQ-2 Answer Date Recorded Patient Health Questionnaire-2 Score 0 09/01/2024 Comments Unknown Sex and Gender Information Value Date Recorded Sex Assigned at Female 01/20/2024 2:26 PM EDT Legal Sex Female 7:34 PM EDT Gender Identity Female 01/20/2024 2:26 PM EDT Sexual Orientation Straight 01/20/2024 2: 26 PM EDT Last Filed Vital Signs Vital Sign Reading Time Taken Comments Blood Pressure 126/80 11/09/2024 11:00 AM EDT Pulse 83 11/09/2024 11:00 AM EDT Temperature 36.7 C (98.1 F) 09/01/2024 9:14 AM EDT Respiratory Rate 18 09/01/2024 9:14 AM EDT Oxygen Saturation 94% 11/09/2024 11: 00 AM EDT Inhaled Oxygen Concentration - - Weight 79.8 kg (175 lb 14.8 oz) 025 11:00 AM EDT Height 152.4 cm (5') 11/16/2024 11:00 AM EDT Body Mass Index 34.36 11/16/2024 11:00 AM EDT Plan of Treatment Upcoming Encounters Date Type Department Care Team (Late st Contact Info) Description 11/18/2024 10:30 AM EDT Office Visit [facility] Pulmonary Rehab [address] [place] [address] 11/23/2024 10:30 AM EDT Office Visit [facility] Pulmonary Rehab [address] [place] [address] 11/25/2024 10:30 AM EDT Office Visit [facility] Pulmonary Rehab [address] [place] [address] 11/26/2024 8:00 AM EDT Office Visit [facility] [address] [place] [address] Deuce Lofton, PharmD [address] [phone] 11/30/2024 10:30 AM EDT Office Visit [facility] Pulmonary Rehab [address] [place] [address] 12/31/2024 8:40 AM EDT Office Visit [facility] [address] [place] [phone] Sobia Kincaid S, SECURITY SYSTEMS SPECIALIST [address] [phone] Health Maintenance Due Date Last Done Comments [facility]-/Child/Adol SDOH Screenings 1960 Diabetes: Dental Exam 1970 [facility]- SDOH Screenings 1978 [facility]-Adult SDOH Screenings 1978 CT Colonography 2005 Colonoscopy 2005 FIT-DNA 2005 FIT 2005 FOBT 2005 Sigmoidoscopy 2005 [facility]-Colorectal Cancer Screening 2005 [id number] Vaccine (3 - Moderna risk series) 05/17/2021 04/19/2021, 09/01/2020 [facility]-Diabetes: Hemoglobin A1C 06/17/2024 03/18/2024 [facility]-Depression Screening 09/01/2025 09/01/2024 [facility]-Breast Cancer Screening 11/25/2025 11/26/2023, 0 11/26/2023 [facility]-DTaP,Tdap,and Td Vaccines (2 - Td or Tdap) 08/13/2034 08/13/2024 [facility]-RSV Vaccine: 60+ Years or Completed 02/28/2024 [facility]-Influenza Vaccine Completed 03/06/2024 , 02/19/2023, 03/13/2022, Additional history exists [facility]-HIV Screening Completed 03/18/2024 [facility]-Hepatitis C Screening Completed 03/18/2024 [facility]-Pneumococcal Vaccine: 50+ Years Completed 08/13/2024, 04/02/2016 [facility]-Zoster Vaccines Completed 10/29/2024, [facility]-Obesity Intervention Completed 025, 11/11/2024, 11/09/2024, Additional history exists HPV Vaccines Aged Out No longer eligi ble based on patient's age to complete this topic [facility]-HIB Vaccines Aged Out No longer e ligible based on patient's age to complete this topic [facility]-Hepatitis A Vaccines Aged Out No longer eligible based on patient's age to complete this topic [facility]-IPV Vaccines Aged Out No longer e ligible based on patient's age to complete this topic [facility]-Rotavirus Vaccines Aged Out No lo nger eligible based on patient's age to complete this topic Procedures Procedure Name Priority Date/Time Associated Diagnosis Comments HC PULM STRESS TEST SIMPLE Routine 09/01/2024 12:59 PM EDT Pre-transplant evaluation for lung transplant HC BREATHING CAPACITY TEST Routine 09/01/2024 12:59 PM EDT Pre-transplant evaluation for lung transplant ARTERIAL BLOOD STICK (PFT LAB PERFORMED) Routine 09/01/2024 12:35 PM EDT Pre-transplant evaluation for lung transplant COMPREHENSIVE METABOLIC PANEL, PLASMA Routine 09/01/2024 10:42 AM EDT Pre-transplant evaluation for lung transplant CBC WITH AUTO DIFFERENTIAL Routine 09/01/2024 10:42 AM EDT Pre-transplant evaluation for lung transplant HLA ANTIBODY TESTING (LSA) Routine 09/01/2024 10:42 AM EDT Pre-transplant evaluation for lung transplant CREATININE CLEARANCE, 24 HOUR URINE Routine 08/17/2024 11:05 AM EDT Pre-transplant evaluation for lung transplant CREATININE CLEARANCE, PLASMA AND 24-HOUR URINE Routine 08/17/2024 11:05 AM EDT Pre-transplant evaluation for lung transplant BASIC METABOLIC PANEL, PLASMA Routine 08/17/2024 11:05 AM EDT Pre-transplant evaluation for lung transplant HEPATITIS C ANTIBODY W/REFLEX TO HCV QUANT PCR Routine 03/18/2024 9:51 AM EDT Pre-transplant evaluation for lung transplant HIV 1/2 ANTIBODY/ANTIGEN SCREEN WITH REFLEX TO HIV I/II DIFFERENTIATION Routine 03/18/2024 9:51 AM EDT Pre-transplant evaluation for lung transplant HEMOGLOBIN A1C Routine 03/18/2024 9:51 AM EDT Pre-transplant evaluation for lung transplant from Last 3 Months or Most Recently Relevant to Health Maintenance Results * Six-Minute Walk Test (09/01/2024 12:59 PM EDT) [facility] 6MWD TEST TESTING 250.00 m 09/01/2024 12:58 PM EDT VY[facility] PFT DIST. FINAL TEST 10.00 m 09/01/2024 12:58 PM EDT VYAIRE PFT LAPS TEST 8.00 09/01/2024 12:58 PM EDT VYAIRE PFT PAUSES TEST 0.00 09/01/2024 12:58 PM EDT VYAIRE PFT PAUSE TEST 0.00 sec 09/01/2024 12:58 PM EDT VYAIRE PFT DURATION TEST 6.00 min 09/01/2024 12:58 PM EDT VYAIRE PFT PUR7ZER TEST 89.00 % 09/01/2024 12:58 PM EDT VYAIRE PFT VEP2QQC TEST 97.00 % 09/01/2024 12:58 PM EDT VYAIRE PFT [id number] TEST RECOVERY 89.00 % 09/01/2024 12:58 PM EDT VYAIRE PFT MEAN SPO2 TEST 91.00 % 09/01/2024 12:58 PM EDT VYAIRE PFT MEAN SPO2 TEST 97.00 % 09/01/2024 12:58 PM EDT VYAIRE PFT MEAN SPO2 TEST RECOVERY 92.00 % 09/01/2024 12:58 PM EDT VYAIRE PFT TI88 TEST 0.00 min 09/01/2024 12:58 PM EDT VYAIRE PFT TI88 TEST 0.00 min 09/01/2024 12:58 PM EDT VYAIRE PFT TI88 TEST RECOVERY 0.00 min 09/01/2024 12:58 PM EDT VYAIRE PFT HRMAX TEST 103.00 BPM 09/01/2024 12:58 PM EDT VYAIRE PFT HRMAX TEST 94.00 BPM 09/01/2024 12:58 PM EDT VYAIRE PFT HRMAX TEST RECOVERY 103.00 BPM 09/01/2024 12:58 PM EDT VYAIRE PFT LAP DIST TEST 30.00 m 09/01/2024 12:58 PM EDT VYAIRE PFT DYSPNEA TEST 0.00 09/01/2024 12:58 PM EDT VYAIRE PFT DYSPNEA TEST 6.00 09/01/2024 12:58 PM EDT VYAIRE PFT EXERTION TEST 8.00 09/01/2024 12:58 PM EDT VYAIRE PFT EXERTION TEST 6.00 09/01/2024 12:58 PM EDT VYAIRE PFT Resting SPO2 97.00 % 09/01/2024 12:58 PM EDT VYAIRE PFT SPO2 TEST 96.00 % 09/01/2024 12:58 PM EDT VYAIRE PFT HR TEST 93.00 BPM 09/01/2024 12:58 PM EDT VYAIRE PFT HR TEST 97.00 BPM 09/01/2024 12:58 PM EDT VYAIRE PFT O2 FLOW TEST 4.00 L/min 09/01/2024 12:58 PM EDT VYAIRE PFT Anatomical Region Laterality Modality PFT 09/01/2024 12:4 6 PM EDT Narrative 09/03/2024 6:39 PM EDT 6 Minute Walk Test The patient underwent a 6 minute walk test administered via ATS/ERS criteria. The patient walked 250 meters in 6 minutes, which is 56% of predicted. The patient paused 0 times for a total duration of 0 seconds. Baseline oxygen saturation was 97% on 4L/min, with a klever of 89% during exertion. Total time spent at <88% was 0 seconds. Baseline heart rate was 93 BPM, which increased to a peak of 103 BPM during the testing. Libby dyspnea score was 0 at baseline and 6 at the conclusion of testing. us Em Mcdonald MD PFT ORDERABLES Final Result * Spirogram (09/01/2024 12:59 PM EDT) [id number] 2.36 L 09/01/2024 12:46 PM EDT VY[facility]RE PFT FVC PRED 2.74 09/01/2024 12:46 PM EDT VYAIRE PFT FVC LLN 2.05 09/01/2024 12:46 PM EDT VYAIRE PFT FVCPREZSCORE -0.88 09/01/2024 12:46 PM EDT VYAIRE PFT FVCPRE%PRED 86 % % 09/01/2024 12:46 PM EDT VYAIRE PFT FVC PREDAUTH US_Quanjer GLI (2011) 09/01/2024 12:46 PM EDT VYAIRE PFT FVC Z-SCORE -0.88 09/01/2024 12:46 PM EDT VYAIRE PFT FEV1 PRE 1.15 L 09/01/2024 12:46 PM EDT VYAIRE PFT FEV1 PRED 2.16 09/01/2024 12:46 PM EDT VYAIRE PFT FEV1 LLN 1.61 09/01/2024 12:46 PM EDT VYAIRE PFT [id number] -2.98 09/01/2024 12:46 PM EDT VYAIRE PFT FEV1_Pre%Pred 53 % % 09/01/2024 12:46 PM EDT VYAIRE PFT FEV1 PREDWALTER [facility]. [facility]ER[facility] DEVELOPMENTAL CENTERDaren DELATORRE (2011) 09/01/2024 12:46 PM EDT VYAIRE PFT FEV1 Z-SCORE -2.98 09/01/2024 12:46 PM EDT VYAIRE PFT FEV1/FVC PRE 48.48 % 09/01/2024 12:46 PM EDT VYAIRE PFT [id number] 79 09/01/2024 12:46 PM EDT VYAIRE PFT [id number] 67 09/01/2024 12:46 PM EDT VYAIRE PFT [id number] -3.52 09/02/19 12:46 PM EDT VYAIRE PFT NIT9AMZXVE%PRED 61 % % 12:46 PM EDT V[facility]AIRE PFT [id number] [facility] DEL[facility]RE (2011) 09/01/2024 12:46 PM EDT VYAIRE PFT SMV6ODVUNBLNG -4 09/01/2024 12:46 PM EDT VYAIRE PFT BQL24-65% PRE 0.43 L/s 09/01/2024 12:46 PM EDT VYAIRE PFT PXB40-49%_Pred 1.98 09/01/2024 12:46 PM EDT VYAIRE PFT PXH5209%LLN 0.98 09/01/2024 12:46 PM EDT VYAIRE PFT ZSG1661%PREZSCOR E -2.98 09/01/2024 12:46 PM EDT VYAIRE PFT FEV4358%PRE%PRED 22 % % 09/02/19 12:46 PM EDT VYAIRE PFT NJJ0268%PREDAUT Jose DELATORRE (2011) 09/01/2024 12:46 PM EDT VYAIRE PFT PEF PRE 3.64 L/s 09/01/2024 12:46 PM EDT VYAIRE PFT PEF PRED 5.67 09/01/2024 12:46 PM EDT VYAIRE PFT PEF LLN 4.12 09/01/2024 12:46 PM EDT VYAIRE PFT PEFPREZSCORE -2.16 09/01/2024 12:46 PM EDT VYAIRE PFT PEFPRE%PRED 64 % % 09/01/2024 12:46 PM EDT VYAIRE PFT PEF PREDAUT NHANES III (1998) 09/01/2024 12:46 PM EDT VYAIRE PFT Anatomical Region Laterality Modality PFT 09/01/2024 12:3 4 PM EDT Narrative 09/02/2024 4:05 PM EDT Pulmonary Function Testing Report Javier Glass 63 y.o. underwent pulmonary function testing today at the [facility]. The patient underwent spirometry. All tests were appropriately administered via ATS/ERS criteria. Spirometry: Reduced FEV1 with a normal FVC and reduced ratio consistent with moderate obstruction. . Trend: Compared to previous study dated 08/05/2024, there has been no significant change in FEV1 and FVC. Em Mcdonald MD PFT ORDERABLES Final Result * (ABNORMAL) Arterial Blood Stick (PFT Lab Performed) (09/01/2024 12:35 PM EDT) [facility] Signature pH, Arterial 7.38 7.31 - 7.42 LAB HEMATOLOGY METHOD 09/01/2024 12:41 PM EDT [facility] pCO2, Arterial 41 35 - 48 mmHg LAB HEMATOLOGY METHOD 09/01/2024 12:41 PM EDT [facility] pO2, Arterial 57(LL) >80 mmHg LAB HEMATOLOGY METHOD 09/01/2024 12:41 PM EDT [facility] SO2, Measured, Arterial 90(L) 94 - 98 % LAB HEMATOLOGY METHOD 09/01/2024 12:41 PM EDT [facility] Base Excess, Arterial -1.0 -2.0 - 3.0 mmol/L LAB HEMATOLOGY METHOD 09/01/2024 12:41 PM EDT [facility] Bicarbonate, Calculated, Arterial 24 22 - 26 mmol/L LAB HEMATOLOGY METHOD 09/01/2024 12:41 PM EDT [facility] Hematocrit, Whole Blood 46.0(H) 34.0 - 45.0 % LAB HEMATOLOGY METHOD 09/01/2024 12:41 PM EDT [facility] Sodium, Whole Blood 138 136 - 145 mmol/L LAB HEMATOLOGY METHOD 09/01/2024 12:41 PM EDT [facility] Potassium, Whole Blood 4.3 3.6 - 4.9 mmol/L LAB HEMATOLOGY METHOD 09/01/2024 12:41 PM EDT [facility] Chloride, Whole Blood 106 97 - 107 mmol/L LAB HEMATOLOGY METHOD 09/01/2024 12:41 PM EDT [facility] Glucose, Whole Blood 195(H) 74 - 99 mg/dL LAB HEMATOLOGY METHOD 09/01/2024 12:41 PM EDT [facility] Ionized Calcium, Whole Blood 4.6 4.6 - 5.1 mg/dL LAB HEMATOLOGY METHOD 09/01/2024 12:41 PM EDT [facility] Lactate, Arterial, Whole Blood 2.5(H) 0.5 - 1.6 mmol/L LAB HEMATOLOGY METHOD 09/01/2024 12:41 PM EDT [facility] Blood Arterial blood specimen / Unknown Arterial Puncture / Unknown 09/01/2024 12:35 PM EDT 09/01/2024 12:39 PM EDT us Em Mcdonald MD LAB BLOOD ORDERABLES Final Res ult [facility] [address] [place] [address] * HLA Antibody Testing (LSA) (09/01/2024 10:42 AM EDT) Blood Venous blood specimen / Unknown Venipuncture / Unknown 09/01/2024 10:42 AM EDT 09/01/2024 11:13 AM EDT us Em Mcdonald MD LAB BLOOD ORDERABLES Final Res ult [facility] [address] [place] [address], * (ABNORMAL) Hemogram with Diff (09/01/2024 10:42 AM EDT) WBC Count 8.58 3.70 - 10.30 10*3/uL LAB HEMATOLOGY METHOD 09/01/2024 11:26 AM EDT [facility] RBC Count 5.14 3.90 - 5.20 10*6/uL LAB HEMATOLOGY METHOD 09/01/2024 11:26 AM EDT [facility] HGB 15.7 11.2 - 15.7 g/dL LAB HEMATOLOGY METHOD 09/01/2024 11:26 AM EDT [facility] HCT 47.9(H) 34.0 - 45.0 % LAB HEMATOLOGY METHOD 09/01/2024 11:26 AM EDT [facility] Platelet Count 262 155 - 369 10*3/uL LAB HEMATOLOGY METHOD 09/01/2024 11:26 AM EDT [facility] MCV 93 79 - 98 fL LAB HEMATOLOGY METHOD 09/01/2024 11:26 AM EDT [facility] MCH 30.5 26.0 - 32.0 pg LAB HEMATOLOGY METHOD 09/01/2024 11:26 AM EDT [facility] MCHC 32.8 30.7 - 35.5 g/dL LAB HEMATOLOGY METHOD 09/01/2024 11:26 AM EDT [facility] RDW 13.0 11.5 - 14.5 % LAB HEMATOLOGY METHOD 09/01/2024 11:26 AM EDT [facility] MPV 9.8 8.8 - 12.5 fL LAB HEMATOLOGY METHOD 09/01/2024 11:26 AM EDT [facility] nRBC 0.0 <=0.0 per 100 WBCs LAB HEMATOLOGY METHOD 09/01/2024 11:26 AM EDT [facility] Differential Type Automated LAB HEMATOLOGY METHOD 09/01/2024 11:26 AM EDT [facility] Neutrophils % 55 % LAB HEMATOLOGY METHOD 09/01/2024 11:26 AM EDT [facility] Lymphocytes % 30 % LAB HEMATOLOGY METHOD 09/01/2024 11:26 AM EDT [facility] Monocytes % 9 % LAB HEMATOLOGY METHOD 09/01/2024 11:26 AM EDT [facility] Eosinophils % 4 % LAB HEMATOLOGY METHOD 09/01/2024 11:26 AM EDT [facility] Basophils % 1 % LAB HEMATOLOGY METHOD 09/01/2024 11:26 AM EDT [facility] Immature Granulocytes % 1 % LAB HEMATOLOGY METHOD 09/01/2024 11:26 AM EDT [facility] Neutrophils Absolute 4.82 1.60 - 6.10 10*3/uL LAB HEMATOLOGY METHOD 09/01/2024 11:26 AM EDT [facility] Lymphocytes Absolute 2.55 1.20 - 3.90 10*3/uL LAB HEMATOLOGY METHOD 09/01/2024 11:26 AM EDT [facility] Monocytes Absolute 0.76 0.30 - 0.90 10*3/uL LAB HEMATOLOGY METHOD 09/01/2024 11:26 AM EDT [facility] Eosinophils Absolute 0.36 0.00 - 0.50 10*3/uL LAB HEMATOLOGY METHOD 09/01/2024 11:26 AM EDT [facility] Basophils Absolute 0.05 0.00 - 0.10 10*3/uL LAB HEMATOLOGY METHOD 09/01/2024 11:26 AM EDT [facility] Immature Granulocytes Absolute 0.04 0.00 - 0.06 10*3/uL LAB HEMATOLOGY METHOD 09/01/2024 11:26 AM EDT [facility] Blood Venous blood specimen / Unknown Venipuncture / Unknown 09/01/2024 10:42 AM EDT 09/01/2024 11:15 AM EDT [facility] - 09/01/2024 11:26 AM EDT Therapeutic decision making should be based on absolute values, rather than percentages. us Em Mcdonald MD LAB BLOOD ORDERABLES Final Res ult [facility] [address] [place] [address] * Comprehensive Metabolic Panel (09/01/2024 10:42 AM EDT) Glucose, Plasma 92 74 - 99 mg/dL 09/01/2024 11:45 AM EDT [facility] BUN, Plasma 15 8 - 23 mg/dL 09/01/2024 11:45 AM EDT [facility] Creatinine, Plasma 0.60 0.60 - 1.10 mg/dL 09/01/2024 11:45 AM EDT [facility] BUN/Creatinine Ratio 25 09/01/2024 11:45 AM EDT [facility] Sodium, Plasma 138 136 - 145 mmol/L 09/01/2024 11:45 AM EDT [facility] Potassium, Plasma 4.4 3.6 - 4.9 mmol/L 09/01/2024 11:45 AM EDT [facility] Chloride, Plasma 104 97 - 107 mmol/L 09/01/2024 11:45 AM EDT [facility] CO2, Plasma 24 22 - 29 mmol/L 09/01/2024 11:45 AM EDT [facility] Anion Gap 10 6 - 16 mmol/L 09/01/2024 11:45 AM EDT [facility] Total Calcium, Plasma 9.8 8.9 - 10.2 mg/dL 09/01/2024 11:45 AM EDT [facility] Total Protein 7.9 6.3 - 7.9 g/dL 09/01/2024 11:45 AM EDT [facility] Albumin, Plasma 4.6 3.5 - 5.2 g/dL 09/01/2024 11:45 AM EDT [facility] AST, Plasma 27 10 - 35 U/L 09/01/2024 11:45 AM EDT [facility] Comment:Hemolyzed, result ma y be falsely increased. ALT, Plasma 21 10 - 35 U/L 09/01/2024 11:45 AM EDT [facility] Alkaline Phosphatase, Plasma 91 46 - 142 U/L 09/01/2024 11:45 AM EDT [facility] Total Bilirubin, Plasma 0.4 0.2 - 1.1 mg/dL 09/01/2024 11:45 AM EDT [facility] eGFRcr 101.0 mL/min/1.7 3m*2 09/01/2024 11:45 AM EDT [facility] Comment:Reported eGFRcr in m L/min/1.73m2 is based the CKD-EPI 2020 equation that does not use a race coefficient. Blood Venous blood specimen / Unknown Venipuncture / Unknown 09/01/2024 10:42 AM EDT 09/01/2024 11:11 AM EDT us Em Mcdonald MD LAB BLOOD ORDERABLES Final Res ult [facility] [address] [place] [address] * (ABNORMAL) Creatinine Clearance, 24 Hour Urine (08/17/2024 11:05 AM EDT) Hours Of Collection 24 HRS 08/17/2024 12:03 PM EDT [facility] Urine, Volume 2,000 mL 08/17/2024 12:03 PM EDT [facility] Creatinine, Urine 68 mg/dL 08/17/2024 12:03 PM EDT [facility] Creatinine, Plasma 0.83 0.60 - 1.10 mg/dL 08/17/2024 12:03 PM EDT [facility] Creatinine Clearance 113.79(H) 60.00 - 102.00 mL/min 08/17/2024 12:03 PM EDT [facility] Creatinine per day, Urine 1,360 500 - 1,600 mg/d 08/17/2024 12:03 PM EDT [facility] Urine Urine specimen obtained by clean catch procedure / Unknown Non-blood Collection / Unknown 08/17/2024 11:05 AM EDT 08/17/2024 11:32 AM EDT us Em Mcdonald MD LAB URINE ORDERABLES Final Res ult [facility] [address] [place] [address] * (ABNORMAL) Basic metabolic panel (08/17/2024 11:05 AM EDT) Glucose, Plasma 116(H) 74 - 99 mg/dL 08/17/2024 11:59 AM EDT [facility] BUN, Plasma 12 8 - 23 mg/dL 08/17/2024 11:59 AM EDT [facility] Creatinine, Plasma 0.83 0.60 - 1.10 mg/dL 08/17/2024 11:59 AM EDT [facility] BUN/Creatinine Ratio 14 08/17/2024 11:59 AM EDT [facility] Sodium, Plasma 145 136 - 145 mmol/L 08/17/2024 11:59 AM EDT [facility] Potassium, Plasma 3.9 3.6 - 4.9 mmol/L 08/17/2024 11:59 AM EDT [facility] Chloride, Plasma 105 97 - 107 mmol/L 08/17/2024 11:59 AM EDT [facility] CO2, Plasma 29 22 - 29 mmol/L 08/17/2024 11:59 AM EDT [facility] Anion Gap 11 6 - 16 mmol/L 08/17/2024 11:59 AM EDT [facility] Total Calcium, Plasma 10.1 8.9 - 10.2 mg/dL 08/17/2024 11:59 AM EDT [facility] eGFRcr 79.3 mL/min/1.7 3m*2 08/17/2024 11:59 AM EDT [facility] Comment:Reported eGFRcr in m L/min/1.73m2 is based the CKD-EPI 2020 equation that does not use a race coefficient. Blood Venous blood specimen / Unknown Venipuncture / Unknown 08/17/2024 11:05 AM EDT 08/17/2024 11:30 AM EDT us Em Mcdonald MD LAB BLOOD ORDERABLES Final Res ult Performing Organization Address City/[facility]/ZIP Co de Phone Number [facility] [address] [place] [address] * HIV 1 & 2 Antibody/Antigen Screen (03/18/2024 9:51 AM EDT) HIV 1 & 2 Antibody/Antigen Screen Non Reactive Non Reactive 03/18/2024 12:40 PM EDT [facility] Comment:Screening for HIV 1 & 2 antibodies, and P24 antigen is NONREACTIVE. No confirmatory testing is required. Blood Venous blood specimen / Unknown Venipuncture / Unknown 03/18/2024 9:51 AM EDT 03/18/2024 10:33 AM EDT Em Mcdonald MD LAB BLOOD ORDERABLES Final Res ult Performing Organization Address City/[facility]/ZIP Co de Phone Number [facility] [address] [place] [address] * Hepatitis C Antibody (03/18/2024 9:51 AM EDT) Hepatitis C Antibody Negative Negative 03/18/2024 11:27 AM EDT [facility] Blood Venous blood specimen / Unknown Venipuncture / Unknown 03/18/2024 9:51 AM EDT 03/18/2024 10:33 AM EDT Em Mcdonald MD LAB BLOOD ORDERABLES Final Res ult [facility] [address] [place] [address] * (ABNORMAL) Hemoglobin A1c (03/18/2024 9:51 AM EDT) Pathologist [facility] Hemoglobin A1c 7.1(H) <5.7 % 03/18/2024 11:15 AM EDT [facility] Blood Venous blood specimen / Unknown Venipuncture / Unknown 03/18/2024 9:51 AM EDT 03/18/2024 10:56 AM EDT Narrative [facility] - 03/18/2024 11:15 AM EDT HA1C Interpretive Data: Diagnosis of Diabetes: Diabetic > or = 6.5% Pre-diabetic 5.7 to 6.4% Non-diabetic < or = 5.6% Glycemic Targets for Type I and Type II Diabetics: Non- Adults <7.0% Adults <6.0% Children and Adolescents <7.5% Source: [place] [employer]. Standards of medical care in diabetes,2017. Diabetes Care.2017:40 (suppl 1):S1-S135. HbA1c assay performed by an ion-exchange chromatography method that is certified traceable to the DCCT. Em Mcdonald MD LAB BLOOD ORDERABLES Final Res ult [facility] [address] [place] [address] from Last 3 Months or Most Recently Relevant to Health Maintenance Insurance [employer] [facility]ICAID [facility] Care Teams Patient Partner Relationship Specialty Start Date End Date Maximiliano Moreira MD [address] [place] [address] PCP - General 01/20/24
--- OUTSIDE RECORDS SUMMARY | 2024-11-16 15:43 | XMS_ITS | Clinical Summary ---
Author Organization [facility] Address [address] [place] [address] Phone Care Team Providers Care Drill Press Hand Name Role Phone Unavailable Primary Care Provider Unavailabl e Allergies Active Allergy Reactions Criticality Noted Date Comments Androgenic Anabolic Steroid Nausea And Vomiting High 10/30/2022 States she has only been on medrol dose packs but has shown intolerance to steroids in the past. Medications atenoloL (TENORMIN) 25 mg Oral Tablet Take 25 mg by mouth daily. 0 Active cephALEXin (KEFLEX) 500 mg Oral Capsule 1 Capsule 4 times daily. 0 Active BASAGLAR KWIKPEN U-100 INSULIN 100 unit/mL (3 mL) SubQ Insulin Pen 1 Applicator. Takes 27 units in the morning 0 Active lisinopriL-hydro chlorothiazide (PRINZIDE;ZESTOR ETIC) 10-12.5 mg Oral Tablet Take 1 Tablet by mouth daily. 0 Active PROAIR HFA 90 mcg/actuation Inhl HFA Aerosol Inhaler Inhale 1 Puff into the lungs 2 times daily as needed. 2 Active atorvastatin (LIPITOR) 10 mg Oral Tablet Take 10 mg by mouth daily. 2 Active azelastine (ASTELIN) 137 mcg (0.1 %) Nasl Aerosol, [place] 1 [place] in each nostril daily. 2 Active fUROsemide (LASIX) 40 mg Oral Tablet Take 40 mg by mouth 2 times daily. 2 Active montelukast (SINGULAIR) 10 mg Oral Tablet Take 10 mg by mouth daily. 2 Active OZEMPIC 0.25 mg or 0.5 mg(2 mg/1.5 mL) SubQ Pen Injector Inject 1 mg as directed once a week. 2 Active ANORO ELLIPTA 62.5-25 mcg/actuation Inhl Disk with Device Inhale 62.5 Each into the lungs daily. 2 Active albuterol-ipratr opium (DUO-NEB) 0.5 mg-3 mg(2.5 mg base)/3 mL Inhl Solution for Nebulization Take 3 mL by nebulization 4 times daily. Active ivabradine (CORLANOR) 5 mg Oral Tablet Take 5 mg by mouth 2 times daily. Active metoprolol (LOPRESSOR) 50 mg Oral Tablet Take by mouth 2 times daily. Active dapagliflozin (FARXIGA) 5 mg Oral Tablet Take 5 mg by mouth daily. Active spironolactone (ALDACTONE) 25 mg Oral Tablet Take 25 mg by mouth 2 times daily. Active insulin aspart protamine-insuli n aspart (NOVOLOG MIX 70/30) 100 unit/mL (70-30) SubQ Insulin Pen Subcutaneous (Inject under the skin) 100 Units 2 times daily (with meals). Active budesonide (PULMICORT) 0.25 mg/2 mL Inhl Suspension for Nebulization Take 1 Ampule by nebulization 2 times daily. 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 09/19/2024 Travel from Last 3 Months Surgical History Surgery Date Site/Laterality Comments HYSTERECTOMY CHOLECYSTECTOMY COLON SURGERY APPENDECTOMY TONSILLECTOMY CARPAL TUNNEL RELEASE 12/24/2019 Right RIGHT CARPAL TUNNEL RELEASE; Surgeon: Sharif Agarwal MD; Location: [facility]; Service: Hand Medical History Medical History Date Comments Hypertension Diabetes mellitus (HCC) Family History Medical History Relation Name Comments Blindness Neg Hx Cataracts Neg Hx Glaucoma Neg Hx Macular Degen Neg Hx Social History Tobacco Use Types Packs/Day Years Used Date Smoking Tobacco: Former Cigarettes Q uit: 12/21/1979 Smokeless Tobacco: Never Tobacco Cessation:Counseling Given: Not Answered Alcohol Use Standard Drinks/Week Comments Never 0 [...] on file Sexual Orientation Not on file Obstetrics History Last Filed Vital Signs Vital Sign Reading Time Taken Comments Blood Pressure 129/66 12/24/2019 8:19 AM EDT Pulse 75 12/24/2019 8:19 AM EDT Temperature 36.7 C (98 F) 12/24/2019 8:19 AM EDT Respiratory Rate 16 12/24/2019 8:19 AM EDT Oxygen Saturation 96% 12/24/2019 8:19 AM EDT Inhaled Oxygen Concentration - - Weight 72.6 kg (160 lb) 12/21/2019 10:59 AM EDT Height 154.9 cm (5' 1 ) 12/21/2019 10:59 AM EDT Body Mass Index 30.23 12/21/2019 10:59 AM EDT Plan of Treatment Health Maintenance Due Date Last Done Comments Annual Wellness Exam 12/09/1963 Hepatitis C Screening 1978 Cervical Cancer Screening 1981 Pap Smear 1981 HPV/Pap Cotest 1990 Hepatitis B Vaccine (2 of 3 - 19+ 3-dose series) 04/06/1997 03/09/1997 Cologuard 2005 Colon Cancer Screening 2005 Colonoscopy 2005 FIT 2005 Sigmoidoscopy 2005 Virtual Colonography 2005 COVID-19 Vaccine ( season) 2024 04/19/2021, 09/01/2020, 08/04/2020 Zoster (2 of 2) 10/22/2024 08/27/2024 Breast Cancer Screening 11/25/2025 11/26/2023, 11/25 DTaP/TDaP/Td (2 - Td or Tdap) 08/13/2034 08/13/2024 RSV or 60+ Completed 02/28/2024 Influenza Vaccine Completed 03/06/2024, , 03/13/2022, Additional history exists Pneumococcal Vaccine 50+ Completed 08/13/2024, 03/05 Meningococcal B Vaccine Aged Out No l onger eligible based on patient's age to complete this topic Procedures Procedure Name Priority Date/Time Associated Diagnosis Comments COLOR FUNDUS PHOTOGRAPHY - OU - BOTH EYES Routine 09/21/2024 11:12 AM EDT 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 Christianne Montana OD OPHTHALMOLOGY SERVICES ORDERA BLES Final Result Performing Organization Address [facility] Co de Phone Number [facility] * WOOD VISUAL FIELD - OU - BOTH EYES (09/21/2024 11:11 AM EDT) Narrative [facility] - 09/21/2024 11:11 AM EDT Patient is here for follow up imaging. Notes 30-2 OD,OS Reliable Yes, No GHT ONL,WNL VFI 97%, 99% MD -2.73, -0.70 PSD 3.55, 1.71 nasal rim defects OD,clear OS [facility] OPHTHALMOLOG[facility] ORDERA BLES Final Result Performing Organization Address City/[facility] Co de Phone Number [facility] OFFICE from Last 3 Months Insurance [id number] [facility] [place]
--- NOTE | 2024-11-16 15:46 | XR_ITS ---
PROCEDURE INFORMATION: Exam: XR Chest Exam date and time: 11/16/2024 4:02 PM Age: 63 years old Clinical indication: Condition or disease; Lung condition and disease; Copd; Additional info: Copd x 5 yrs, end stage copd, issues with low oxygen levels recently, smoker of 42 yrs but quit in 2017 TECHNIQUE: Imaging protocol: Radiologic exam of the chest. Views: 2 views. COMPARISON: 1. CR XR CHEST 2V 09/23/2023 12:[address] HR CHEST X3 01/06/2024 3:53 PM 3. CR XR CHEST 2V 07/08/2024 12:19 PM FINDINGS: Limitations: Radiographic technique - mild. Lungs: No definite consolidation. Faint nodular opacity within RIGHT upper lobe, grossly stable. Pleural spaces: No significant pleural effusion. No pneumothorax. Heart/Mediastinum: No cardiomegaly. Bones/joints: No displaced fracture. Soft tissues: Unremarkable. IMPRESSION: No significant interval change. Follow-up as clinically warranted.
== END 2024-11-16 23:59 | disposition home or self-care (01) ==
LOC: RAD 15:39
PROVIDERS: PCP Family Medicine; Visit Provider Internal Medicine Pulmonary Disease
DX: J44.9 Chronic obstructive pulmonary disease, unspecified (principal)
CPT/HCPCS: 71046

== ENCOUNTER 2024-11-27 07:44 | Outpatient (CLI) | payer OTHER, SELFPAY ==
--- OUTSIDE RECORDS SUMMARY | 2024-09-28 10:30 | XMS_ITS | Encounter Summary ---
Author Organization [facility] Address [address] [place] [address] Care Team Providers Care Lawn Mower Name Role Phone Maximiliano Moreira MD Primary Care Provider [phone] Encounter Details Date Type Department Care Team (Late st Contact Info) Description 09/28/2024 10:30 AM EDT Office Visit [facility] [address] [place] [address] Other emphysema (CMS/HCC) (Primary Dx) Social History Tobacco Use Types Packs/Day Years [...] Sign Reading Time Taken Comments Blood Pressure 128/74 09/28/2024 1:00 PM EDT Pulse 107 09/28/2024 1:00 PM EDT Temperature - - Respiratory Rate - - Oxygen Saturation 84% 09/28/2024 1:00 PM EDT Inhaled Oxygen Concentration - - Weight 80.1 kg (176 lb 9.4 oz) 09/28/2024 1:00 P M EDT Height 152.4 cm (5') 09/28/2024 1:00 PM EDT Body Mass Index 34.49 09/28/2024 1:00 PM EDT documented in this encounter Miscellaneous Notes * Progress Notes - KarloJoselo schmittmatt Mejia - 09/28/2024 10:30 AM EDT Pulmonary Rehab Daily Note Patient Name: Javier Glass Today's Date: 09/28/2024 General General Time In: 1020 Time Out: 1150 Visit Number: 2 Physician on Site: Elidia Serna MD Height: 152.4 cm (5') Weight: 80.1 kg (176 lb 9.4 oz) Vital Signs Resting Vital Signs SpO2: 94 % Pulse: 87 Supplemental Oxygen : 3 LPM N/C (32% FiO2) BP: 130/82 Dyspnea Index: 2 Falls: 0 Meds Taken: yes Meds Changed: no Blood Glucose: 207 Breathing Assessment Breathing Assessment: Diminished bilaterally Exercise Exercise Modalities Track Walk Assistive Device: Rollator Time: 20 Minutes Number of Laps: 23 Exercise SPO2: 88 Exercise HR: 97 Supplemental Oxygen: 4 LPM N/C (36% FiO2) Pt O2 increased to 4LPM to maintain SpO2>90% Exercise BP: 128/70 Exercise Dyspnea: 3 Rate of Percieved Exertion: 3 Pt tolerated exercise well Upper Body Ergometer Resistance: 1 Revolutions per Minute: 41 Time: 10 Distance: .66 METS: 2.3 Exercise SPO2: 91 Exercise HR: 95 Supplemental Oxygen: 4 LPM N/C (36% FiO2) Exercise Dyspnea: 3 Rate of Percieved Exertion: 3 Pt tolerated exercise well Weights Exercise Sets: 1 Reps: 10 Weight: 2 lbs Time: 10 Minutes Exercise SpO2: 92 Exercise HR: 904 Supplemental Oxygen: 4 LPM N/C (36% FiO2) Exercise Dyspnea: 3 Rate of Perceived Exertion: 3 Pt tolerated exercise well Cool Down Cool Down Exercises: 10 min Post-Activity Vital Signs Post-Activity Vital signs SpO2: 93 % Pulse: 82 Supplemental Oxygen : 3 LPM N/C (32% FiO2) BP: 118/68 Dyspnea Index: 2 Blood Glucose: 127 Functional Assessments Six Minute Walk Test Heart Rate: 107 SpO2: (!) 84 % Supplemental Oxygen : 4 LPM N/C (36% FiO2) BP: 128/74 Exercise Dyspnea: 3 Rate of Percieved Exertion: 4 Symptoms: Pt tolerated exercise well Total Distance Ambulated: 290 Meters MPH: 1.8 Attained MET Level: 2.4 Educational Classes/20 Minutes Nutrition Part 1 (AN) documented in this encounter Plan of Treatment Upcoming Encounters Date Type Department Care Team (Late st Contact Info) Description 11/30/2024 10:30 AM EDT Office Visit [facility] [address] [place] [address] 12/31/2024 8:40 AM EDT Office Visit [facility] [address] [place] [address] Sobia Kincaid, DIRECTOR OF CARDIOLOGY [address] [facility] [address] [place] [address] documented as of this encounter Visit Diagnoses Diagnosis Other emphysema (CMS/HCC)- Primary Other emphysema documented in this encounter Additional Health Concerns Assessment Noted Time A fall risk assessment has been complete d for the patient 09/01/2024 9:20 AM EDT A Body Mass Index follow-up plan has been documented for the patient 09/28/2024 2:19 PM EDT documented as of this encounter Care Teams Lawn Mower Relationship Specialty Start Date End Date Maximiliano Moreira MD [address] [place] [address] PCP - General 01/20/24 documented as of this encounter
--- OUTSIDE RECORDS SUMMARY | 2024-09-30 10:30 | XMS_ITS | Encounter Summary ---
Author Organization [facility] Address [address] [place] [address] Care Team Providers Care Therapy Technician Name Role Phone Maximiliano Moreira MD Primary Care Provider [phone] Encounter Details Date Type Department Care Team (Late st Contact Info) Description 09/30/2024 10:30 AM EDT Office Visit [facility] [address] [place] [address] Other emphysema (CMS/HCC) (Primary Dx) Social History Tobacco Use Types Packs/Day Years Used Date Smoking Tobacco: Former Cigarettes 2 017 - 1968 Smokeless Tobacco: Never PHQ-2 Answer [...] - Inhaled Oxygen Concentration - - Weight - - Height 152.4 cm (5') 09/30/2024 2:00 PM EDT Body Mass Index - - documented in this encounter Miscellaneous Notes * Progress Notes - Elisha Gamboa - 09/30/2024 10:30 AM EDT Pulmonary Rehab Daily Note Patient Name: Javier Glass Today's Date: 09/30/2024 General General Time In: 1020 Time Out: 1150 Visit Number: 3 Physician on Site: Hipolito Gil MD Height: 152.4 cm (5') Vital Signs Resting Vital Signs SpO2: 94 % Pulse: 82 Supplemental Oxygen : 3 LPM N/C (32% FiO2) BP: 104/58 Dyspnea Index: 2 Falls: 0 Meds Taken: yes Meds Changed: no Blood Glucose: 155 Breathing Assessment Breathing Assessment: Diminished bilaterally Exercise Exercise Modalities Track Walk Assistive Device: Rollator Time: 20 Minutes Number of Laps: 18 Exercise SPO2: 90 Exercise HR: 100 Supplemental Oxygen: 4 LPM N/C (36% FiO2) Exercise BP: 124/62 Exercise Dyspnea: 3 Rate of Percieved Exertion: 3 Pt tolerated exercise with PLB reminders Seated Stepper Resistance Level: 1-2 Steps per Minute: 50 Time: 20 Minutes Total Steps: 865 Steps METS: 2.63 Exercise SPO2: 92 88% on 4 LPM Exercise Heart Rate: 93 (HR 91 bpm on 4 LPM) Supplemental Oxygen : 6 LPM N/C (44% FiO2) O2 Increased to 6 LPM to maintain SpO2> 90% Exercise BP: 130/70 Exercise Dyspnea: 4 Rate of Percieved Exertion: 3 Pt tolerated exercise with PLB reminders Weights Exercise Sets: 2 Reps: 12 Weight: 2 lbs Time: 10 Minutes Exercise SpO2: 93 Exercise HR: 87 Supplemental Oxygen: 4 LPM N/C (36% FiO2) Exercise Dyspnea: 2 Rate of Perceived Exertion: 3 Pt tolerated exrecise well Cool Down Cool Down Exercises: 10 min Post-Activity Vital Signs Post-Activity Vital signs SpO2: 92 % Pulse: 87 Supplemental Oxygen : 3 LPM N/C (32% FiO2) BP: 102/60 Dyspnea Index: 2 Blood Glucose: 130 Educational Classes/20 Minutes Nutrition Part 2 (AN) documented in this encounter Plan of Treatment Upcoming Encounters Date Type Department Care Team (Late st Contact Info) Description 11/30/2024 10:30 AM EDT Office Visit [facility] Pul[facility] Rehab [address] [place] [address] 12/31/2024 8:40 AM EDT [facility] [address] [place] [address] Sobia Kincaid, INTERNAL AFFAIRS COMMANDER [address] [place] [address] documented as of this encounter Visit Diagnoses Diagnosis Other emphysema (CMS/HCC)- Primary Other emphysema documented in this encounter Additional Health Concerns Assessment Noted Time A fall risk assessment has been complete d for the patient 09/01/2024 9:20 AM EDT A Body Mass Index follow-up plan has been documented for the patient 09/30/2024 2:41 PM EDT documented as of this encounter Care Teams Therapy Technician Relationship Specialty Start Date End Date Maximiliano Moreira MD [address] [place] [address] PCP - General 01/20/24 documented as of this encounter
--- OUTSIDE RECORDS SUMMARY | 2024-10-05 10:30 | XMS_ITS | Encounter Summary ---
Author Organization Healthcare Address [address] [place] [address] Care Team Providers Care Greeting Card Writer Name Role Phone Maximiliano Moreira MD Primary Care Provider [phone] Encounter Details Date Type Department Care Team (Late st Contact Info) Description 10/05/2024 10:30 AM EDT Office Visit [facility] [address] [place] [address] Other emphysema (CMS/HCC) (Primary Dx) Social History [...] - Inhaled Oxygen Concentration - - Weight 79.6 kg (175 lb 7.8 oz) 10/05/2024 1:00 P M EDT Height 152.4 cm (5') 10/05/2024 1:00 PM EDT Body Mass Index 34.27 10/05/2024 1:00 PM EDT documented in this encounter Miscellaneous Notes * Progress Notes - Elisha Gamboa - 10/05/2024 10:30 AM EDT Pulmonary Rehab Daily Note Patient Name: Javier Glass Today's Date: 10/05/2024 General General Time In: 1020 Time Out: 1150 Visit Number: 4 Physician on Site: María Espinoza APRN Height: 152.4 cm (5') Weight: 79.6 kg (175 lb 7.8 oz) Vital Signs Resting Vital Signs SpO2: 96 % Pulse: 73 Supplemental Oxygen : 3 LPM N/C (32% FiO2) BP: 122/62 Dyspnea Index: 3 Falls: 0 Meds Taken: yes Meds Changed: no Blood Glucose: 119 Breathing Assessment Breathing Assessment: Diminished bilaterally Exercise Exercise Modalities Track Walk Assistive Device: Rollator Time: 20 Minutes Number of Laps: 22 Exercise SPO2: 90 Exercise HR: 92 Supplemental Oxygen: 4 LPM N/C (36% FiO2) Exercise BP: 118/64 Exercise Dyspnea: 3 Rate of Percieved Exertion: 2 Pt tolerated exercise well Upper Body Ergometer Resistance: 1-2 Revolutions per Minute: 45 Time: 20 Distance: 1.34 METS: 2.3 Exercise SPO2: 91 Exercise HR: 82 Supplemental Oxygen: 3 LPM N/C (32% FiO2) Exercise BP: 130/68 Exercise Dyspnea: 3 Rate of Percieved Exertion: 2 Pt tolerated exercise well Weights Exercise Sets: 3 Reps: 12 Weight: 3 lbs Time: 10 Minutes Exercise SpO2: 93 Exercise HR: 77 Supplemental Oxygen: 4 LPM N/C (36% FiO2) Exercise Dyspnea: 2 Rate of Perceived Exertion: 2 Pt tolerated exercise well Cool Down Cool Down Exercises: 10 min Post-Activity Vital Signs Post-Activity Vital signs SpO2: 92 % Pulse: 74 Supplemental Oxygen : 3 LPM N/C (32% FiO2) BP: 110/62 Dyspnea Index: 2 Blood Glucose: 124 Educational Classes/20 Minutes everyday activities/exercise (ADLs) (CS) documented in this encounter Plan of Treatment Upcoming Encounters Date Type Department Care Team (Late st Contact Info) Description 11/30/2024 10:30 AM EDT Office Visit [facility] Pul[facility] Rehab [address] [place] [address] 12/31/2024 8:40 AM EDT [facility] [address] [place] [address] Sobia Kincaid, VP MEDICAL [address] [place] [address] documented as of this encounter Visit Diagnoses Diagnosis Other emphysema (CMS/HCC)- Primary Other emphysema documented in this encounter Additional Health Concerns Assessment Noted Time A fall risk assessment has been complete d for the patient 09/01/2024 9:20 AM EDT A Body Mass Index follow-up plan has been documented for the patient 10/05/2024 1:42 PM EDT documented as of this encounter Care Teams Greeting Card Writer Relationship Specialty Start Date End Date Maximiliano Moreira MD [address] [place] [address] PCP - General 01/20/24 documented as of this encounter
--- OUTSIDE RECORDS SUMMARY | 2024-10-07 10:30 | XMS_ITS | Encounter Summary ---
Author Organization Healthcare Address [address] [place] [address] Care Team Providers Care Quarter Backer Name Role Phone Maximiliano Moreira MD Primary Care Provider [phone] Encounter Details Date Type Department Care Team (Late st Contact Info) Description 10/07/2024 10:30 AM EDT Office Visit [facility] [address] [place] [address] Other emphysema (CMS/HCC) (Primary Dx) Social History [...] - Inhaled Oxygen Concentration - - Weight 80 kg (176 lb 5.9 oz) 10/07/2024 11:00 AM EDT Height 152.4 cm (5') 10/07/2024 11:00 AM EDT Body Mass Index 34.44 10/07/2024 11:00 AM EDT documented in this encounter Miscellaneous Notes * Progress Notes - Elisha Gamboa - 10/07/2024 10:30 AM EDT Pulmonary Rehab Daily Note Patient Name: Javier Glass Today's Date: 10/07/2024 General General Time In: 1020 Time Out: 1150 Visit Number: 4 Physician on Site: Hipolito Gil MD Height: 152.4 cm (5') Weight: 80 kg (176 lb 5.9 oz) Vital Signs Resting Vital Signs SpO2: 92 % Pulse: 70 Supplemental Oxygen : 2 LPM N/C (28% FiO2) BP: 144/64 Dyspnea Index: 2 Falls: 0 Meds Taken: yes Meds Changed: no Blood Glucose: 183 Breathing Assessment Breathing Assessment: Diminished bilaterally Pt reports LE edema (non-pitting) Exercise Exercise Modalities Track Walk Assistive Device: Rollator Time: 20 Minutes Number of Laps: 22 Exercise SPO2: 90 Exercise HR: 80 Supplemental Oxygen: 4 LPM N/C (36% FiO2) Exercise BP: 136/66 Exercise Dyspnea: 3 Rate of Percieved Exertion: 3 Pt tolerated exercise well Seated Stepper Resistance Level: 1-3 Steps per Minute: 49 Time: 20 Minutes Total Steps: 904 Steps METS: 2.73 Exercise SPO2: 92 Exercise Heart Rate: 72 Supplemental Oxygen : 3 LPM N/C (32% FiO2) Exercise BP: 148/80 Exercise Dyspnea: 3 Rate of Percieved Exertion: 3 Pt tolerated exercise well Weights Exercise Reps: 10 Weight: 3 lbs Time: 10 Minutes Exercise SpO2: 95 Exercise HR: 70 Supplemental Oxygen: 4 LPM N/C (36% FiO2) Exercise Dyspnea: 3 Rate of Perceived Exertion: 3 Pt tolerated exercise well Cool Down Cool Down Exercises: 10 min Post-Activity Vital Signs Post-Activity Vital signs SpO2: 95 % Pulse: 72 Supplemental Oxygen : 3 LPM N/C (32% FiO2) BP: 112/64 Dyspnea Index: 1 Blood Glucose: 130 Educational Classes/20 Minutes At-Home exercises (AN) documented in this encounter Plan of Treatment Upcoming Encounters Date Type Department Care Team (Late st Contact Info) Description 11/30/2024 10:30 AM EDT Office Visit [facility] Pulmonary Rehab [address] [place] [address] 12/31/2024 8:40 AM EDT Office Visit [facility] Endocrinology [address] [place] [address] Sobia Kincaid, AIRCRAFT METALSMITH [address] [facility] [address] [place] [address] documented as of this encounter Visit Diagnoses Diagnosis Other emphysema (CMS/HCC)- Primary Other emphysema documented in this encounter Additional Health Concerns Assessment Noted Time A fall risk assessment has been complete d for the patient 09/01/2024 9:20 AM EDT A Body Mass Index follow-up plan has been documented for the patient 10/07/2024 11:51 AM EDT documented as of this encounter Care Teams Quarter Backer Relationship Specialty Start Date End Date Maximiliano Moreira MD [address] [place] [address] PCP - General 01/20/24 documented as of this encounter
--- OUTSIDE RECORDS SUMMARY | 2024-10-12 10:30 | XMS_ITS | Encounter Summary ---
Author Organization Healthcare Address [address] [place] [address] Care Team Providers Care Devops Consultant Name Role Phone Maximiliano Moreira MD Primary Care Provider [phone] Encounter Details Date Type Department Care Team (Late st Contact Info) Description 10/12/2024 10:30 AM EDT Office Visit [facility] [address] [place] [address] Other emphysema (CMS/HCC) (Primary Dx) Social History [...] - Inhaled Oxygen Concentration - - Weight 79.4 kg (175 lb 0.7 oz) 10/12/2024 11:00 AM EDT Height 152.4 cm (5') 10/12/2024 11:00 AM EDT Body Mass Index 34.19 10/12/2024 11:00 AM EDT documented in this encounter Miscellaneous Notes * Progress Notes - Vivienne Kaplan Estefany - 10/12/2024 10:30 AM EDT Pulmonary Rehab Daily Note Patient Name: Javier Glass Today's Date: 10/12/2024 General General Time In: 1020 Time Out: 1150 Visit Number: 6 Physician on Site: Elidia Serna MD Height: 152.4 cm (5') Weight: 79.4 kg (175 lb 0.7 oz) Vital Signs Resting Vital Signs SpO2: 92 % Pulse: 74 Supplemental Oxygen : 3 LPM N/C (32% FiO2) BP: 130/74 Dyspnea Index: 2 Falls: 0 Meds Taken: yes Meds Changed: no Blood Glucose: 238 Breathing Assessment Breathing Assessment: Diminished bilaterally Exercise Exercise Modalities Track Walk Assistive Device: Rollator Time: 20 Minutes Number of Laps: 22 Exercise SPO2: 93 Exercise HR: 89 Supplemental Oxygen: 6 LPM N/C (44% FiO2) At 8 min of track walk pt. SpO2: 86% HR: 92 Libby: 3/3 No improvement os SpO2 w/focused PLB Increase to 6L/min/NC - pt. Maintained SpO2 at 90% or above for remainder of track walk Exercise BP: 130/68 Exercise Dyspnea: 3 Rate of Percieved Exertion: 3 Signs and Symptoms: Pt tolerated exercise Upper Body Ergometer Resistance: 1-2 Revolutions per Minute: 42 Time: 20 Distance: 1.73 METS: 2.4 Exercise SPO2: 94 Exercise HR: 88 Supplemental Oxygen: 3 LPM N/C (32% FiO2) Exercise BP: 130/74 Exercise Dyspnea: 2 Rate of Percieved Exertion: 3 Signs and Symptoms: Pt tolerated exercise well Weights Exercise Sets: 1 Reps: 15 Weight: 3 lbs Time: 10 Minutes Exercise SpO2: 94 Exercise HR: 84 Supplemental Oxygen: 4 LPM N/C (36% FiO2) Exercise Dyspnea: 3 Rate of Perceived Exertion: 3 Signs and Symptoms: Pt tolerated exercise well Cool Down Cool Down Exercises: 10 min Post-Activity Vital Signs Post-Activity Vital signs SpO2: 94 % Pulse: 80 Supplemental Oxygen : 3 LPM N/C (32% FiO2) BP: 114/54 Dyspnea Index: 2 Blood Glucose: 172 Educational Classes/20 Minutes Oxygen (MW) documented in this encounter Plan of Treatment Upcoming Encounters Date Type Department Care Team (Late st Contact Info) Description 11/30/2024 10:30 AM EDT Office Visit [facility] Pulmonary Rehab [address] [place] [address] 12/31/2024 8:40 AM EDT Office Visit [facility] Endocrinology [address] [place] [address] Sobia Kincaid S, INTEL ANALYST [address] [facility] [address] [place] [address] documented as of this encounter Visit Diagnoses Diagnosis Other emphysema (CMS/HCC)- Primary Other emphysema documented in this encounter Additional Health Concerns Assessment Noted Time A fall risk assessment has been complete d for the patient 09/01/2024 9:20 AM EDT A Body Mass Index follow-up plan has been documented for the patient 10/12/2024 11:59 AM EDT documented as of this encounter Care Teams Devops Consultant Relationship Specialty Start Date End Date Maximiliano Moreira MD [address] [place] [address] PCP - General 01/20/24 documented as of this encounter
--- OUTSIDE RECORDS SUMMARY | 2024-10-14 10:30 | XMS_ITS | Encounter Summary ---
Author Organization [facility] Address [address] [place] [address] Care Team Providers Care Supervisor Television Chassis Repair Name Role Phone Maximiliano Moreira MD Primary Care Provider [phone] Encounter Details Date Type Department Care Team (Late st Contact Info) Description 10/14/2024 10:30 AM EDT [facility] [address] [place] [address] Other emphysema (CMS/HCC) (Primary Dx) Social History [...] Weight - - Height 152.4 cm (5') 10/14/2024 11:00 AM EDT Body Mass Index - - documented in this encounter Miscellaneous Notes * Progress Notes - Elisha Gamboa - 10/14/2024 10:30 AM EDT Pulmonary Rehab Daily Note Patient Name: Javier Glass Today's Date: 10/14/2024 General General Time In: 1020 Time Out: 1150 Visit Number: 7 Physician on Site: Hipolito Gil MD Height: 152.4 cm (5') Vital Signs Resting Vital Signs SpO2: 92 % Pulse: 80 Supplemental Oxygen : 3 LPM N/C (32% FiO2) BP: 126/60 Dyspnea Index: 0 Falls: 0 Meds Taken: yes Meds Changed: no Blood Glucose: 185 Breathing Assessment Breathing Assessment: Diminished bilaterally Exercise Exercise Modalities Track Walk Assistive Device: Rollator Time: 20 Minutes Number of Laps: 23 Exercise SPO2: 92 Exercise HR: 99 Supplemental Oxygen: 6 LPM N/C (44% FiO2) Exercise BP: 140/80 Exercise Dyspnea: 2 Rate of Percieved Exertion: 2 Pt tolerated exercise well Seated Stepper Resistance Level: 2-3 Steps per Minute: 56 Time: 20 Minutes Total Steps: 1054 Steps METS: 2.66 Exercise SPO2: 91 (88% on 3 LPM) Exercise Heart Rate: 89 Supplemental Oxygen : 4 LPM N/C (36% FiO2) Pt increased to maintain SpO2 at or above 90% Exercise BP: 138/66 Exercise Dyspnea: 3 Rate of Percieved Exertion: 3 Pt tolerated exercise well Weights Exercise Sets: 2 Reps: 15 Weight: 3 lbs Time: 10 Minutes Exercise SpO2: 91 Exercise HR: 83 Supplemental Oxygen: 6 LPM N/C (44% FiO2) Exercise Dyspnea: 3 Rate of Perceived Exertion: 3 Pt tolerated exercise well Cool Down Cool Down Exercises: 10 min Post-Activity Vital Signs Post-Activity Vital signs SpO2: 92 % Pulse: 87 Supplemental Oxygen : 3 LPM N/C (32% FiO2) BP: 110/66 Dyspnea Index: 2 Blood Glucose: 130 Educational Classes/20 Minutes Tobacco use/smoking cessation (DAO) documented in this encounter Plan of Treatment Upcoming Encounters Date Type Department Care Team (Late st Contact Info) Description 11/30/2024 10:30 AM EDT Office Visit [facility] Pulmonary Rehab [address] [place] [address] 12/31/2024 8:40 AM EDT Office Visit [facility] Endocrinology [address] [place] [address] Sobia Kincaid, HONING MACHINE SET UP OPERATOR TOOL [address] [place] [address] documented as of this encounter Visit Diagnoses Diagnosis Other emphysema (CMS/HCC)- Primary Other emphysema documented in this encounter Additional Health Concerns Assessment Noted Time A fall risk assessment has been complete d for the patient 09/01/2024 9:20 AM EDT A Body Mass Index follow-up plan has been documented for the patient 10/14/2024 11:40 AM EDT documented as of this encounter Care Teams Supervisor Television Chassis Repair Relationship Specialty Start Date End Date Maximiliano Moreira MD [address] [place] [address] PCP - General 01/20/24 documented as of this encounter
--- OUTSIDE RECORDS SUMMARY | 2024-10-19 10:30 | XMS_ITS | Encounter Summary ---
Author Organization [facility] Address [address] [place] [address] Care Team Providers Care Household Appliance Repairer Name Role Phone Maximiliano Moreira MD Primary Care Provider [phone] Encounter Details Date Type Department Care Team (Late st Contact Info) Description 10/19/2024 10:30 AM EDT Office Visit [facility] Pulmonary Rehab [address] [place] [phone] Other emphysema (CMS/HCC) (Primary Dx); Chronic obstructive [...] Description 11/30/2024 10:30 AM EDT Office Visit [facility] Pulmonary Rehab [address] [place] [address] 12/31/2024 8:40 AM EDT [facility] [address] [place] [address] Sobia Kincaid, PRETZEL TWISTER [address] [facility] [address] [place] [address] documented as of this encounter [...] documented as of this encounter Care Teams Household Appliance Repairer Relationship Specialty Start Date End Date Maximiliano Moreira MD [address] [place] [address] PCP - General 01/20/24 documented as of this encounter
--- OUTSIDE RECORDS SUMMARY | 2024-10-21 10:30 | XMS_ITS | Encounter Summary ---
Author Organization [facility] Address [address] [place] [address] Care Team Providers Care Timber Surveyor Name Role Phone Maximiliano Moreira MD Primary Care Provider [phone] Encounter Details Date Type Department Care Team (Late st Contact Info) Description 10/21/2024 10:30 AM EDT [facility] [address] [place] [address] Other emphysema (CMS/HCC) (Primary Dx) Social History [...] Weight - - Height 152.4 cm (5') 10/21/2024 11:00 AM EDT Body Mass Index - - documented in this encounter Miscellaneous Notes * Progress Notes - Elisha Gamboa - 10/21/2024 10:30 AM EDT Pulmonary Rehab Daily Note Patient Name: Javier Glass Today's Date: 10/21/2024 General General Time In: 1020 Time Out: 1150 Visit Number: 9 Physician on Site: Quinn Martinez MD Pain: 2/10 upper/ mid back pain Height: 152.4 cm (5') Vital Signs Resting Vital Signs SpO2: 95 % Pulse: 72 Supplemental Oxygen : 3 LPM N/C (32% FiO2) BP: 120/68 Dyspnea Index: 2 Falls: 0 Meds Taken: yes Meds Changed: no Blood Glucose: 192 Breathing Assessment Breathing Assessment: Diminished bilaterally Exercise Exercise Modalities Track Walk Assistive Device: Rollator Time: 20 Minutes Number of Laps: 21 Exercise SPO2: 90 Exercise HR: 87 Supplemental Oxygen: 6 LPM N/C (44% FiO2) Exercise BP: 116/68 Exercise Dyspnea: 3 Rate of Percieved Exertion: 3 Pt tolerated exercise well Seated Stepper Resistance Level: 3-4 Steps per Minute: 48 Time: 20 Minutes Total Steps: 1063 Steps METS: 2.53 Exercise SPO2: 92 Exercise Heart Rate: 82 Supplemental Oxygen : 4 LPM N/C (36% FiO2) Exercise BP: 132/68 Exercise Dyspnea: 2 Rate of Percieved Exertion: 3 Pt tolerated exercise well Weights Exercise Reps: 10 Weight: 4 lbs Time: 10 Minutes Exercise SpO2: 97 Exercise HR: 74 Supplemental Oxygen: 6 LPM N/C (44% FiO2) Exercise Dyspnea: 3 Rate of Perceived Exertion: 3 Pt tolerated exercise well Cool Down Cool Down Exercises: 10 min Post-Activity Vital Signs Post-Activity Vital signs SpO2: 94 % Pulse: 77 Supplemental Oxygen : 3 LPM N/C (32% FiO2) BP: 100/64 Dyspnea Index: 2 Blood Glucose: 148 Educational Classes/20 Minutes Staying healthy (CS) documented in this encounter Plan of Treatment Upcoming Encounters Date Type Department Care Team (Late st Contact Info) Description 11/30/2024 10:30 AM EDT Office Visit [facility] Pulmonary Rehab [address] [place] [address] 12/31/2024 8:40 AM EDT [facility] [address] [place] [address] Sobia Kincaid, OFFSET LABEL REWINDER [address] [place] [address] documented as of this encounter Visit Diagnoses Diagnosis Other emphysema (CMS/HCC)- Primary Other emphysema documented in this encounter Additional Health Concerns Assessment Noted Time A fall risk assessment has been complete d for the patient 09/01/2024 9:20 AM EDT A Body Mass Index follow-up plan has been documented for the patient 10/21/2024 11:49 AM EDT documented as of this encounter Care Teams Timber Surveyor Relationship Specialty Start Date End Date Maximiliano Moreira MD [address] [place] [address] PCP - General 01/20/24 documented as of this encounter
--- OUTSIDE RECORDS SUMMARY | 2024-10-28 10:30 | XMS_ITS | Encounter Summary ---
Author Organization [facility] Address [address] [place] [address] Care Team Providers Care Outbound Telemarketing Representative Name Role Phone Maximiliano Moreira MD Primary Care Provider [phone] Encounter Details Date Type Department Care Team (Late st Contact Info) Description 10/28/2024 10:30 AM EDT Office Visit [facility] [address] [place] [address] Chronic obstructive pulmonary disease, unspecified COPD type [...] Description 11/30/2024 10:30 AM EDT Office Visit [facility] Pulmonary Rehab [address] [place] [address] 12/31/2024 8:40 AM EDT Office Visit [facility] Endocrinology [address] [place] [address] Sobia Kincaid S, RESEARCH PHLEBOTOMIST [address] [facility] [address] [place] [address] documented as of this encounter Visit Diagnoses [...] documented as of this encounter Care Teams Outbound Telemarketing Representative Relationship Specialty Start Date End Date Maximiliano Moreira MD [address] [place] [address] PCP - General 01/20/24 documented as of this encounter
--- OUTSIDE RECORDS SUMMARY | 2024-10-29 08:30 | XMS_ITS | Encounter Summary ---
Author Organization [facility] Address [address] [place] [address] Care Team Providers Care Budget Counselor Name Role Phone Maximiliano Moreira MD Primary Care Provider [phone] Reason for Referral * Consultation (Routine) - Closed Specialty Diagnoses / Procedures Referred By Zurdo aguirre Referred To Contact Endocrinology Diagnoses Type 2 diabetes mellitus with hyperglycemia, with long-term current use of insulin (CMS/[facility]) Sobia Kinc[place] APRN [address] [address] Phone: tel: fax: Deuce Lofton, PharmD [address] [address] Phone: tel: fax: Referral ID Status Reason Start Date Expiration Date Visits Re quested Visits Authorized [id number] Closed 10/29/2024 04/30/2026 1 1 * Consultation (Routine) - Closed Specialty Diagnoses / Procedures Referred By Contaislinn t Referred To Contact Endocrinology Diagnoses Type 2 diabetes mellitus with hyperglycemia, with long-term current use of insulin (CMS/HCC) Sobia Kinc[place] APRN [address] [address] Phone: tel: fax: [facility] Diabetes Education [address] [place] [address] Phone: tel: fax: Referral ID Status Reason Start Date Expiration Date Visits Re quested Visits Authorized [id number] Closed 10/29/2024 04/30/2026 1 1 Scheduling Instructions Carb counting, interested in insulin pump therapy Reason for Visit * Reason Comments Diabetes * Consultation (Routine) - Closed Specialty Diagnoses / Procedures Referred By Zurdo aguirre Referred To Contact Endocrinology Diagnoses Type 2 diabetes mellitus with hyperglycemia, with long-term current use of insulin (CMS/HCC) Sobia Kinc[place] APRN [address] [address] Phone: tel: fax: Deuce Lofton, PharmD [address] [address] Phone: tel: fax: Referral ID Status Reason Start Date Expiration Date Visits Re quested Visits Authorized [id number] Closed 09/17/2024 03/19/2026 1 1 Encounter Details Date Type Department Care Team (Late st Contact Info) Description 10/29/2024 8:30 AM EDT Office Visit [facility] Endocrinology [address] [place] [address] Deuce Lofton, PharmD [address] [address] Type 2 diabetes mellitus with [...] 2:26 PM EDT Sexual Orientation Straight 01/20/2024 2 :26 PM EDT documented as of this encounter [...] 250, please contact the Diabetes Team at [phone]. * Progress Notes - Deuce Lofton, PharmD - 10/29/2024 8:30 AM EDT Images from the original note were not included. Subjective Javier Glass is a 63 y.o. female who presents to the [facility] medication adjustment clinic for follow up evaluation of Diabetes Mellitis Type 2. PMH: COPD (lung pre-transplant eval), hypothyroidism,HTN, HLD, hx of smoking (quit 2016) HPI Last visit with endocrinology provider Sobia Kincaid APRN on 09/09/24, most recent A1c 7.2% on 08/13/24. Pt seen more recently in [facility] on 09/17. Changes made at last visit [...] History Administered Date(s) Administered Moderna COVID-19 Vaccine (Glaze Grinder) 12+ years 08/04/2020, 09/01/2020, 04/19/2021 The following [...] hyperglycemia, with long-term current use of insulin ([facility]) Relevant Medications NovoLOG FLEXPEN 100 UNIT/ML injection pen Other Relevant Orders Ambulatory Referral to [facility] Diabetes Nutrition Follow Up [facility] Diabetes Mellitis Type 2 - A1c [...] and/or coordination of care. Deuce Lofton, PharmD [facility] ENDOCRINOLOGY [address] [facility] , [address] [facility] [address] documented in this encounter Plan of Treatment Upcoming Encounters Date Type Department Care Team (Late st Contact Info) Description 11/30/2024 10:30 AM EDT Office Visit [facility] [address] [place] [address] 12/31/2024 8:40 AM EDT Office Visit [facility] Endocrinology [address] [place] [address] Sobia Kincaid, SMASH HAND [address] [place] [address] Scheduled Referrals Name Type Priority Associated Diagnoses Order Schedule Ambulatory Referral to [facility] Diabetes Nutrition Outpatient Referral Routine Type 2 diabetes mellitus with hyperglycemia, with long-term current use of insulin ([facility]) Expected: 11/12/2024, Expires: 05/01/2026 Follow Up [facility] Outpatient Referral Routine Type 2 diabetes mellitus with hyperglycemia, with long-term current use of insulin ([facility]) Expected: 11/26/2024, Expires: 11/29/2025 documented as of this encounter Visit Diagnoses Diagnosis Type 2 diabetes mellitus with hyperglycemia, with long-term current use of insulin ([facility]) documented in this encounter Additional Health Concerns Assessment Noted Time A fall risk assessment has been complete d for the patient 09/01/2024 9:20 AM EDT A Body Mass Index follow-up plan has been documented for the patient 10/29/2024 8:32 AM EDT documented as of this encounter Care Teams Budget Counselor Relationship Specialty Start Date End Date Maximiliano Moreira MD [address] [facility] [place] [address] PCP - General 01/20/24 documented as of this encounter
--- OUTSIDE RECORDS SUMMARY | 2024-11-02 10:30 | XMS_ITS | Encounter Summary ---
Author Organization [facility] Address [address] [place] [address] Care Team Providers Care Sales Service Professional Name Role Phone Maximiliano Moreira MD Primary Care Provider [phone] Encounter Details Date Type Department Care Team (Late st Contact Info) Description 11/02/2024 10:30 AM EDT Office Visit [facility] Pulmonary Rehab [address] [place] [phone] Chronic obstructive pulmonary disease, unspecified COPD type [...] Description 11/30/2024 10:30 AM EDT Office Visit [facility] Pulmonary Rehab [address] [place] [address] 12/31/2024 8:40 AM EDT [facility] End[facility]ology [address] [place] [address] Sobia Kincaid, INCOME TAX ANALYST [address] [place] [address] documented as of this encounter Visit Diagnoses Diagnosis Chronic obstructive pulmonary disease, unspecified COPD type (CMS/HCC)- Primary Other emphysema (CMS/HCC) Other emphysema documented in this encounter Additional Health Concerns Assessment Noted Time A fall risk assessment has been complete d for the patient 09/01/2024 9:20 AM EDT A Body Mass Index follow-up plan has been documented for the patient 11/02/2024 12:02 PM EDT documented as of this encounter Care Teams Sales Service Professional Relationship Specialty Start Date End Date Maximiliano Moreira MD [address] [place] [address] [place] [address] PCP - General 01/20/24 documented as of this encounter
--- OUTSIDE RECORDS SUMMARY | 2024-11-04 10:30 | XMS_ITS | Encounter Summary ---
Author Organization [facility] Address [address] [place] [address] Care Team Providers Care Buyer Grain Name Role Phone Maximiliano Moreira MD Primary Care Provider [phone] Encounter Details Date Type Department Care Team (Late st Contact Info) Description 11/04/2024 10:30 AM EDT [facility] [address] [place] [address] Other emphysema (CMS/HCC) (Primary Dx) Social History [...] Description 11/30/2024 10:30 AM EDT Office Visit [facility] Pulmonary Rehab [address] [place] [address] 12/31/2024 8:40 AM EDT Office Visit [facility] Endocrinology [address] [place] [address] Sobia Kincaid, ACCESS COORDINATOR [address] [place] [address] documented as of this encounter [...] documented as of this encounter Care Teams Buyer Grain Relationship Specialty Start Date End Date Maximiliano Moreira MD [address] [place] [address] PCP - General 01/20/24 documented as of this encounter
--- OUTSIDE RECORDS SUMMARY | 2024-11-09 10:30 | XMS_ITS | Encounter Summary ---
Author Organization [facility] Address [address] [place] [address] Care Team Providers Care Certified Neurodiagnostic Technologist Name Role Phone Maximiliano Moreira MD Primary Care Provider [phone] Encounter Details Date Type Department Care Team (Late st Contact Info) Description 11/09/2024 10:30 AM EDT Office Visit [facility] Re[facility] [address] [place] [address] Other emphysema (CMS/HCC) (Primary Dx) Social History [...] Visit [facility] Pulmonary Rehab [address] [place] [address] 12/31/2024 8:40 AM EDT Office Visit [facility] Endocrinology [address] [place] [address] Sobia Kincaid S, FINANCIAL OPERATIONS ANALYST [address] [place] [address] documented as of this encounter [...] documented as of this encounter Care Teams Certified Neurodiagnostic Technologist Relationship Specialty Start Date End Date Maximiliano Moreira MD [address] [place], [place] [id number] PCP - General 01/20/24 documented as of this encounter
--- OUTSIDE RECORDS SUMMARY | 2024-11-11 10:30 | XMS_ITS | Encounter Summary ---
Author Organization [facility] Address [address] [place] [address] Care Team Providers Care Roll Shop Supervisor Name Role Phone Maximiliano Moreira MD Primary Care Provider Encounter Details Date Type Department Care Team (Late st Contact Info) Description 11/11/2024 10:30 AM EDT Office Visit [facility] Re[facility] [address] [place] [address] Other emphysema (CMS/HCC) (Primary Dx) Social History [...] 20 Minutes Total Steps: 906 Steps METS: 2.63 Exercise SPO2: 95 Exercise Heart Rate: 72 [...] Upcoming Encounters Date Type Department Care Team (Fish Contact Info) Description 11/30/2024 10:30 AM EDT Office Visit [facility] Pulmonary Rehab [address] [place] [address] 12/31/2024 8:40 AM EDT Office Visit [facility] Endocrinology [address] [place] [address] Sobia Kincaid, LOGGING TRACTOR OPERATOR [address] [facility] [address] [place] [address] documented as of this encounter [...] documented as of this encounter Care Teams Roll Shop Supervisor Relationship Specialty Start Date End Date Maximiliano Moreira MD [address] [place] [address] PCP - General 01/20/24 documented as of this encounter
--- OUTSIDE RECORDS SUMMARY | 2024-11-12 16:00 | XMS_ITS | Encounter Summary ---
Author Organization [facility] Address [address] [place] [address] Care Team Providers Care Manager Operating Name Role Phone Maximiliano Moreira MD Primary Care Provider [phone] Reason for Visit * Consultation (Routine) - Closed Specialty Diagnoses / Procedures Referred By Zurdo aguirre Referred To Contact Endocrinology Diagnoses Type 2 diabetes mellitus with hyperglycemia, with long-term current use of insulin ([facility]) Sobia Kincaid, AUTO INSPECTION SPECIALIST [address] [place] [address] Phone: tel: fax: [facility] Diabetes Education [address] [place] [address] Phone: tel: fax: Referral ID Status Reason Start Date Expiration Date Visits Re quested Visits Authorized [id number] Closed 10/29/2024 04/30/2026 1 1 Encounter Details Date Type Department Care Team (Late st Contact Info) Description 11/12/2024 4:00 PM EDT Education [facility] Diabetes Education [address] [place] [address] Henny Cervantes, RD [address] [place] [address] Type 2 diabetes mellitus with hyperglycemia, with long-term current use of insulin ([facility]) (Primary Dx) Social History Tobacco Use Types [...] Patient confirms they are physically located in [place]? Yes If the patient is not physically located in [place], the provider has confirmed with [facility] thatthe provider is authorized to provide services in patient's stated location? N/A Provider Location: [facility] facility Audio and video or [...] grams. Practiced carb counting in examples. Discussed [employer] nancy or Reble to find carb content of food items. [...] Description 11/30/2024 10:30 AM EDT Office Visit [facility] Pulmonary Rehab [address] [place] [address] 12/31/2024 8:40 AM EDT Office Visit [facility] Endocrinology [address] [place] [address] Sobia Kincaid, AUTO INSPECTION SPECIALIST [address] [address] documented as of this encounter Visit Diagnoses Diagnosis Type 2 diabetes mellitus with hyperglycemia, with long-term current use of insulin ([facility])- Primary documented in this encounter Additional Health Concerns Assessment Noted Time A fall risk assessment has been complete d for the patient 09/01/2024 9:20 AM EDT A Body Mass Index follow-up plan has been documented for the patient 11/11/2024 12:01 PM EDT documented as of this encounter Care Teams Manager Operating Relationship Specialty Start Date End Date Maximiliano Moreira MD [address] [place] [address] PCP - General 01/20/24 documented as of this encounter
--- OUTSIDE RECORDS SUMMARY | 2024-11-16 10:30 | XMS_ITS | Encounter Summary ---
Author Organization Healthcare Address [address] [place] [address] Care Team Providers Care Fiber Optic Splicer Name Role Phone Maximiliano Moreira MD Primary Care Provider [phone] Encounter Details Date Type Department Care Team (Late st Contact Info) Description 11/16/2024 10:30 AM EDT [facility] [address] [place] [address] Other emphysema (CMS/HCC) (Primary Dx) Social History [...] Description 11/30/2024 10:30 AM EDT Office Visit [facility] Pulmonary Rehab [address] [place] [address] 12/31/2024 8:40 AM EDT [facility] [address] [place] [address] Sobia Kincaid S, ASSEMBLY LINE BRAZER 2195 [facility] [place] [address] [place] [address] documented as of this encounter [...] documented as of this encounter Care Teams Fiber Optic Splicer Relationship Specialty Start Date End Date Maximiliano Moreira MD [address] [place] [address] PCP - General 01/20/24 documented as of this encounter
--- OUTSIDE RECORDS SUMMARY | 2024-11-18 10:30 | XMS_ITS | Encounter Summary ---
Author Organization Healthcare Address [address] [place] [address] Care Team Providers Care Skin Toggler Name Role Phone Maximiliano Moreiar MD Primary Care Provider [phone] Encounter Details Date Type Department Care Team (Late st Contact Info) Description 11/18/2024 10:30 AM EDT [facility] Visit [facility] [address] [place] [address] Other emphysema (CMS/HCC) (Primary Dx) Social History [...] Weight - - Height 152.4 cm (5') 11/18/2024 11:00 AM EDT Body Mass Index - - documented in this encounter Miscellaneous Notes * Progress Notes - Elisha Gamboa - 11/18/2024 10:30 AM EDT Pulmonary Rehab Daily Note Patient Name: Javier Glass Today's Date: 11/18/2024 General General Time In: 1020 Time Out: 1150 Visit Number: 16 Physician on Site: Hipolito Gil MD Height: 152.4 cm (5') Vital Signs Resting Vital Signs SpO2: 94 % Pulse: 62 Supplemental Oxygen : 3 LPM N/C (32% FiO2) BP: 118/62 Dyspnea Index: 2 Falls: 0 Meds Taken: yes Meds Changed: no Blood Glucose: 167 Breathing Assessment Breathing Assessment: Diminished bilaterally Exercise Exercise Modalities Track Walk Assistive Device: Rollator Time: 20 Minutes Number of Laps: 18 Exercise SPO2: 94 Exercise HR: 81 Supplemental Oxygen: 6 LPM N/C (44% FiO2) Exercise BP: 144/62 Exercise Dyspnea: 2 Rate of Percieved Exertion: 2 Pt tolerated exercise well with increased dyspnea Seated Stepper Resistance Level: 3-5 Steps per Minute: 20 Time: 20 Minutes Total Steps: 742 Steps METS: 2.51 Exercise SPO2: 97 Exercise Heart Rate: 81 Supplemental Oxygen : 6 LPM N/C (44% FiO2) Exercise Dyspnea: 3 Rate of Percieved Exertion: 3 Pt tolerated exercise with increased dyspnea Weights Exercise Sets: 2 Reps: 15 Weight: 4 lbs Time: 10 Minutes Exercise SpO2: 93 Exercise HR: 65 Supplemental Oxygen: 4 LPM N/C (36% FiO2) Exercise Dyspnea: 2 Rate of Perceived Exertion: 2 Pt tolerated exercise well Cool Down Cool Down Exercises: 10 min Post-Activity Vital Signs Post-Activity Vital signs SpO2: 93 % Pulse: 62 Supplemental Oxygen : 3 LPM N/C (32% FiO2) BP: 112/64 Dyspnea Index: 2 Blood Glucose: 139 documented in this encounter Plan of Treatment Upcoming Encounters Date Type Department Care Team (Late st Contact Info) Description 11/30/2024 10:30 AM EDT Office Visit [facility] Pul[facility] Re[facility] [address] [place] [address] 12/31/2024 8:40 AM EDT Office Visit [facility] Endocrinology [address] [place] [id number] Sobia Kincaid S, LOCKS TENDER [address] [facility] [address] [place] [address] documented as of this encounter Visit Diagnoses Diagnosis Other emphysema (CMS/HCC)- Primary Other emphysema documented in this encounter Additional Health Concerns Assessment Noted Time A fall risk assessment has been complete d for the patient 09/01/2024 9:20 AM EDT A Body Mass Index follow-up plan has been documented for the patient 11/18/2024 11:40 AM EDT documented as of this encounter Care Teams Skin Toggler Relationship Specialty Start Date End Date Maximiliano Moreira MD [address] [place], [place] [id number] PCP - General 01/20/24 documented as of this encounter
--- OUTSIDE RECORDS SUMMARY | 2024-11-23 10:30 | XMS_ITS | Encounter Summary ---
Author Organization Healthcare Address [address] [place] [address] Care Team Providers Care Handbag Framer Name Role Phone Maximiliano Moreira MD Primary Care Provider [phone] Encounter Details Date Type Department Care Team (Late st Contact Info) Description 11/23/2024 10:30 AM EDT Office Visit [facility] [address] [place] [address] Other emphysema (CMS/HCC) (Primary Dx) Social History [...] Weight 79.9 kg (176 lb 2.4 oz) 11/23/2024 11:00 AM EDT Height - - Body Mass Index 34.4 11/18/2024 11:00 AM EDT documented in this encounter Miscellaneous Notes * Progress Notes - Clarissa Linder - 11/23/2024 10:30 AM EDT Pulmonary Rehab Daily Note Patient Name: Javier Glass Today's Date: 11/23/2024 General General Time In: 1020 Time Out: 1150 Visit Number: 17 Physician on Site: María Espinoza MD Weight: 79.9 kg (176 lb 2.4 oz) Vital Signs Resting Vital Signs SpO2: 92 % Pulse: 61 Supplemental Oxygen : 3 LPM N/C (32% FiO2) BP: 118/72 Dyspnea Index: 2 Falls: 0 Meds Taken: yes Meds Changed: no Blood Glucose: 149 Breathing Assessment Breathing Assessment Breathing Assessment: Diminished bilaterally Exercise Exercise Modalities Track Walk: Yes UBE: Yes Weights: Yes Track Walk Assistive Device: Rollator Time: 20 Minutes Number of Laps: 27 Exercise SPO2: 91 Exercise HR: 76 Supplemental Oxygen: 6 LPM N/C (44% FiO2) Exercise BP: 132/68 Exercise Dyspnea: 2 Rate of Percieved Exertion: 2 Signs and Symptoms: Pt tolerated exercise well with increased dyspnea Upper Body Ergometer Resistance: 4.5 Revolutions per Minute: 45 Time: 20 Distance: 2.12 METS: 3.0 Exercise SPO2: 94 Exercise HR: 76 Supplemental Oxygen: 4 LPM N/C (36% FiO2) Exercise Dyspnea: 2 Rate of Percieved Exertion: 3 Signs and Symptoms: pt tolerated well Weights Exercise Sets: 1 Reps: 10 Weight: 4 lbs Time: 10 Minutes Exercise SpO2: 92 Exercise HR: 73 Supplemental Oxygen: 4 LPM N/C (36% FiO2) Exercise Dyspnea: 2 Rate of Perceived Exertion: 3 Signs and Symptoms: pt tolerated well Cool Down Cool Down Exercises Cool Down Exercises: 10 Post-Activity Vital Signs Post-Activity Vital signs SpO2: 94 % Pulse: 61 Supplemental Oxygen : 3 LPM N/C (32% FiO2) BP: 108/68 Dyspnea Index: 2 Blood Glucose: 114 Educational Classes/20 Minutes Inhaled medications MW Pt given education packet documented in this encounter Plan of Treatment Upcoming Encounters Date Type Department Care Team (Late st Contact Info) Description 11/30/2024 10:30 AM EDT Office Visit [facility] [address] [place] [address] 12/31/2024 8:40 AM EDT Office Visit [facility] Endocrinology [address] [place] [phone] Sobia Kincaid, SPRINKLER FITTER HELPER [address] [place] [address] documented as of this encounter Visit Diagnoses Diagnosis Other emphysema (CMS/HCC)- Primary Other emphysema documented in this encounter Additional Health Concerns Assessment Noted Time A fall risk assessment has been complete d for the patient 09/01/2024 9:20 AM EDT A Body Mass Index follow-up plan has been documented for the patient 11/23/2024 11:56 AM EDT documented as of this encounter Care Teams Handbag Framer Relationship Specialty Start Date End Date Maximiliano Moreira MD [address] [place] [address] PCP - General 01/20/24 documented as of this encounter
--- OUTSIDE RECORDS SUMMARY | 2024-11-25 10:30 | XMS_ITS | Encounter Summary ---
Author Organization [facility] Address [address] [place] [address] Care Team Providers Care Ceramic Coater Machine Name Role Phone Maximiliano Moreira MD Primary Care Provider [phone] Encounter Details Date Type Department Care Team (Late st Contact Info) Description 11/25/2024 10:30 AM EDT Office Visit [facility] [address] [place] [address] Other emphysema (CMS/HCC) (Primary Dx) Social History [...] Weight - - Height 152.4 cm (5') 11/25/2024 2:00 PM EDT Body Mass Index - - documented in this encounter Miscellaneous Notes * Progress Notes - Elisha Gamboa - 11/25/2024 10:30 AM EDT Pulmonary Rehab Daily Note Patient Name: Javier Glass Today's Date: 11/25/2024 General General Time In: 1020 Time Out: 1150 Visit Number: 18 Physician on Site: Hipolito Gil MD Height: 152.4 cm (5') Vital Signs Resting Vital Signs SpO2: 93 % Pulse: 65 Supplemental Oxygen : 3 LPM N/C (32% FiO2) BP: 118/54 Dyspnea Index: 0 Falls: 0 Meds Taken: yes Meds Changed: no Blood Glucose: 183 Breathing Assessment Breathing Assessment: Diminished bilaterally Exercise Exercise Modalities Track Walk Assistive Device: Rollator Time: 20 Minutes Number of Laps: 22 Exercise SPO2: 92 Exercise HR: 82 Supplemental Oxygen: 6 LPM N/C (44% FiO2) Exercise BP: 110/60 Exercise Dyspnea: 2 Rate of Percieved Exertion: 2 Pt tolerated exercise well Seated Stepper Resistance Level: 5-6 Steps per Minute: 62 Time: 20 Minutes Total Steps: 960 Steps METS: 2.77 Exercise SPO2: 94 Exercise Heart Rate: 81 Supplemental Oxygen : 6 LPM N/C (44% FiO2) Exercise BP: 128/58 Exercise Dyspnea: 2 Rate of Percieved Exertion: [...] Post-Activity Vital signs SpO2: 93 % Pulse: 67 Supplemental Oxygen : 3 LPM N/C (32% FiO2) BP: 112/56 Dyspnea Index: 2 Blood Glucose: 137 Educational Classes/20 Minutes Pulmonary medications (MW) documented in this encounter Plan of Treatment Upcoming Encounters Date Type Department Care Team (Late st Contact Info) Description 11/30/2024 10:30 AM EDT Office Visit [facility] Pulmonary Rehab [address] [place] [address] 12/31/2024 8:40 AM EDT [facility] [address] [place] [address] Sobia Kincaid, HOUSEHOLD PERSONAL ASSISTANT [address] [place] [address] documented as of this encounter Visit Diagnoses Diagnosis Other emphysema (CMS/HCC)- Primary Other emphysema documented in this encounter Additional Health Concerns Assessment Noted Time A fall risk assessment has been complete d for the patient 09/01/2024 9:20 AM EDT A Body Mass Index follow-up plan has been documented for the patient 11/25/2024 2:41 PM EDT documented as of this encounter Care Teams Ceramic Coater Machine Relationship Specialty Start Date End Date Maximiliano Moreira MD [address] [place] [address] PCP - General 01/20/24 documented as of this encounter
--- OUTSIDE RECORDS SUMMARY | 2024-11-26 08:00 | XMS_ITS | Encounter Summary ---
Author Organization [facility] Address [address] [place] [address] Care Team Providers Care Edge Beader Name Role Phone Maximiliano Moreira MD Primary Care Provider [phone] Reason for Visit * Reason Comments Diabetes * Consultation (Routine) - Closed Specialty Diagnoses / Procedures Referred By Zurdo aguirre Referred To Contact Endocrinology Diagnoses Type 2 diabetes mellitus with hyperglycemia, with long-term current use of insulin ([facility]) Sobia Kincaid, CLOTH NEUTRALIZER [address] [address] Phone: tel: fax: Deuce Lofton, PharmD [address] [address] Phone: tel: fax: Referral ID Status Reason Start Date Expiration Date Visits Re quested Visits Authorized [id number] Closed 10/29/2024 04/30/2026 1 1 Encounter Details Date Type Department Care Team (Late st Contact Info) Description 11/26/2024 8:00 AM EDT Office Visit [facility] [address] [place] [address] Deuce Lofton, PharmD [address] [address] Type 2 diabetes mellitus with hyperosmolarity without coma, with long-term current use of insulin ([facility]) (Primary Dx) Social History Tobacco Use Types [...] Weight 79.9 kg (176 lb 2.4 oz) 11/26/2024 7:44 A M EDT Height - - Body Mass Index 34.4 11/25/2024 2:00 PM EDT documented in this encounter Miscellaneous Notes * Patient Instructions - Deuce Lofton, PharmD - 11/26/2024 8:00 AM EDT - continue Toujeo 50 units nightly - take Novolog 1 unit per every 7 grams carbohydrates + correction scale below based on pre meal blood sugar prior to meals Javier Glass [id number] 11/26/24 Insulin Correction Scale 1:30 One unit of [...] 250, please contact the Diabetes Team at [phone]. * Progress Notes - Deuce Lofton, PharmD - 11/26/2024 8:00 AM EDT Images from the original note were not included. Subjective Javier Glass is a 63 y.o. female who presents to the [facility] medication adjustment clinic for follow up evaluation of Diabetes Mellitis Type 2. PMH: COPD (lung pre-transplant eval), hypothyroidism,HTN, HLD, hx of smoking (quit 2017) HPI Last visit with endocrinology provider Sobia Kincaid APRN on 09/09/24, most recent A1c 7.2% on 08/13/24. Pt seen more recently in [facility] on 10/29. Changes made at last visit include: - Increase insulin aspart (Novolog) from 3 units to 4 units before breakfast and lunch, 5 units before dinner +1:30>150, if moving to carb counting use CR of 1un:8g CHO + 1:30>150 (pt was prev typically taking 4 un AC breakfast and 5 AC dinner with CF) Since last visit, pt has been seen by pulmonology rehab multiple times. Pt was seen in the ed center 11/12 for carb counting education, at which time they reported plans to proceed with dosing Novologbased on CR + CF. Pt seen by family medicine 11/16, at which time furosemide was increased in hopes of limiting intermittent hypoxia and duloxetine was initiated for neuropathic pain. Of note, TSH waselevated on recent labs ordered by PCP, no T4 was obtained. Patient was diagnosed in 2018. Of note, pt is being evaluated for lung txp. Current symptoms/problems include hyperglycemia. Pt reports they are happy using CR since last visit. Pt using [employer] another nancy for carb counting and feels they are accurate in their estimates. Current treatment includes: - Insulin glargine u-300 (Toujeo) 50u PM - taking at 8PM - Insulin aspart (Novolog) 1un:8g CHO + 1:30>150- three times daily 15 min before meals, with breakfast typically will take 2-3 units, lunch will take 3-5 units, dinner will take 5-6 units, estimated TDD ~ 12 un Medication adherence: denies missed doses. Previous DM therapy: Farxiga and Ozempic (SE and plans for lung transplant) Patient monitors blood glucose at home continuously with Dexcom. At last visit, avg BG was 190 with51% TIR, with pattern of prandial spikes. Hypoglycemia: since last visit: denied any lows. Pt keeps orange juice on hand. Sensor Type: Dexcom (w/ reader) Interpretation: Blood sugars improved since last f/u with overall good control overnight and spikesat meal times, especially in the afternoon and evening. Current diet: 3 meals daily, no snacks, reports having the least carbs at breakfast, estimates ~ 60g carbs/day, largest meal at dinner, sometimes struggling having more carbs than this Breakfast: 7:30 AM: oatmeal with fruit this morning; coffee and protein shake this AM Lunch: 12-1PM: usually not hungry; soup (cabbage; [...] HTN: metoprolol tartrate 75mg BID, spironolactone 25mg daily, furosemide 40mg in the AM, 20mg in the PM (reports decreased swelling), imdur recently added 30mg Dyslipidemia: (+) on atorvastatin 10mg daily; last LDL 67 on 03/2024 ASCVD: (?) asa 81mg daily, reports recent scan revealed blockages Retinopathy: (-) last eye exam 09/2024, no DR noted Neuropathy: (+) monofilament exam 09/09/24; hx of ulcers/sores, [facility] Nephropathy: last eGFR 101 on 09/01/24 Hypothyroidism: LT4 125 mcg qAM; TSH elevated on recent labs ordered by PCP, increased from 100mcg Immunizations: (+) flu, (+) PPSV, (+) COVID Immunization History Administered Date(s) Administered Influenza, injectable, quadrivalent 06/17/2019 Moderna COVID-19 Vaccine (Human Resource Statistician) 12+ years 09/01/2020, 04/19/2021 The following portions of the chart were reviewed this encounter and updated as appropriate: Allergies Meds Review of Systems Objective Visit Vitals Wt 79.9 kg (176 lb 2.4 oz) BMI 34.40 kg/m?? Smoking Status Former BSA 1.84 m?? Physical Exam Lab Review Hemoglobin A1c (%) Date Value 03/18/2024 7.1 (H) eGFRcr (mL/min/1.73m*2) Date Value 09/01/2024 101.0 LDL, Calculated (mg/dL) Date Value 03/18/2024 67 Triglycerides, Plasma (mg/dL) Date Value 03/18/2024 149 HDL (mg/dL) Date Value 03/18/2024 45 (L) Thyroid Stimulating Hormone, Plasma (uIU/mL) Date Value 11/16/2024 5.84 (H) 03/18/2024 2.61 Assessment/Plan Problem List Items Addressed This Visit Type 2 diabetes mellitus with hyperosmolarity without coma (CMS/HCC) - Primary Relevant Medications Aspirin EC Adult Low Dose 81 MG EC tablet NovoLOG FLEXPEN 100 UNIT/ML injection pen Diabetes Mellitis Type 2 - A1c above goal and With hyperglycemia, with improved control recently and pattern of prandial spikes. Will adjust CR today in hopes of addressing prandial spikes, otherwise will continue regimen without change. Instructed pt to call prior to next f/u with any changes. Medication changes today: - Change Novolog to 1 un per 7 g CHO prior to meals + 1:30>150, take ~ 15 min prior to meals - continue Insulin glargine u-300 (Tujeo) 50u PM - Reviewed signs and symptoms of hypoglycemia, prevention, and treatment (Rule of 15). - Monitor blood glucose continuously with CGM. Complications & Preventative Care - Holding off ordering A1C given upcoming provider visit - Discussed dietary recommendations with focus on incorporating more carbs into the diet Follow up: Sobia Kincaid APRN on 12/31/24 The following Diabetes education was [...] coordination of care. Deuce Lofton, PharmD [facility] [address], [address] [place] [address] documented in this encounter Plan of Treatment Upcoming Encounters Date Type Department Care Team (Late st Contact Info) Description 11/30/2024 10:30 AM EDT Office Visit [facility] Pulmonary Rehab [address] [place] [address] 12/31/2024 8:40 AM EDT Office Visit [facility] [address] [place] [address] Sobia Kincaid S, CLOTH NEUTRALIZER [address] [phone] documented as of this encounter Visit Diagnoses Diagnosis Type 2 diabetes mellitus with hyperosmolarity without coma, with long-term current use of insulin ([facility])- Primary documented in this encounter Additional Health Concerns Assessment Noted Time A fall risk assessment has been complete d for the patient 09/01/2024 9:20 AM EDT A Body Mass Index follow-up plan has been documented for the patient 11/26/2024 8:12 AM EDT documented as of this encounter Care Teams Edge Beader Relationship Specialty Start Date End Date Maximiliano Moreira MD [address] [place] [address] PCP - General 01/20/24 documented as of this encounter
--- OUTSIDE RECORDS SUMMARY | 2024-11-27 07:47 | XMS_ITS | Encounter Summary ---
Author Organization [facility] Address [address] [place] [address] Care Team Providers Care Financial Foundations Representative Name Role Phone Maximiliano Moreira MD Primary Care Provider [phone] Encounter Details Date Type Department Care Team (Latest Contact Info) Description 11/26/2024 Travel Social History Tobacco Use Types Packs/Day [...] Description 11/30/2024 10:30 AM EDT [facility] [address] [place] [address] 12/31/2024 8:40 AM EDT Office Visit [facility] [address] [place] [address] Sobia Kincaid, PHARMACOVIGILANCE SAFETY EXPERT [address] [place] [address] documented as of this encounter Visit Diagnoses Not on filedocumented in this encounter Additional Health Concerns Assessment Noted Time A fall risk assessment has been complete d for the patient 09/01/2024 9:20 AM EDT A Body Mass Index follow-up plan has been documented for the patient 11/26/2024 8:12 AM EDT documented as of this encounter Care Teams Financial Foundations Representative Relationship Specialty Start Date End Date Maximiliano Moreira MD [address] [place] [place] [address] PCP - General 01/20/24 documented as of this encounter
--- OUTSIDE RECORDS SUMMARY | 2024-11-27 07:47 | XMS_ITS | Clinical Summary ---
Author Organization [facility] Address [address] [place] [address] Phone Care Team Providers Care Employee Training Specialist Name Role Phone Unavailable Unavailable Conditions or Problems No information available. Medications No information available. Medications Administered No information available. Allergies, Adverse Reactions, Alerts No information available. Results No information available. Plan of Care No information available. Procedures No information available. Vital Signs No information available. Immunizations No information available. Advance Directives No information available.
--- OUTSIDE RECORDS SUMMARY | 2024-11-27 07:47 | XMS_ITS | Encounter Summary ---
Author Organization [facility] Address [address] [place] [address] Care Team Providers Care Supervisor Tumblers Name Role Phone Maximiliano Moreira MD Primary Care Provider [phone] Encounter Details Date Type Department Care Team (Latest Contact Info) Description 11/25/2024 Travel Social History Tobacco Use Types Packs/Day [...] Description 11/30/2024 10:30 AM EDT Office Visit [facility] [address] [place] [phone] 12/31/2024 8:40 AM EDT Office Visit [facility] [address] [place] [address] Sobia Kincaid, REFINERY OPERATOR [address] [place] [address] documented as of this encounter Visit Diagnoses Not on filedocumented in this encounter Additional Health Concerns Assessment Noted Time A fall risk assessment has been complete d for the patient 09/01/2024 9:20 AM EDT A Body Mass Index follow-up plan has been documented for the patient 11/25/2024 2:41 PM EDT documented as of this encounter Care Teams Supervisor Tumblers Relationship Specialty Start Date End Date Maximiliano Moreira MD [address] [place] [address] PCP - General 01/20/24 documented as of this encounter
--- OUTSIDE RECORDS SUMMARY | 2024-11-27 07:47 | XMS_ITS | Encounter Summary ---
Author Organization [facility] Address [address] [place] [address] Care Team Providers Care Dial Brusher Name Role Phone Maximiliano Moreira MD Primary Care Provider [phone] Reason for Visit * Reason Comments Medication Refill Encounter Details Date Type Department Care Team (Late Contact Info) Description 01/28/2023 Refill [facility] Electrophysiology [address] [place], [place] [phone] Ismael Justice MD [address] [place] [phone] Inappropriate sinus node tachycardia (HCC) Social History Tobacco Use Types Packs/Day Years Used Date Smoking Tobacco: Former Smokeless Tobacco: Never Comments No Sex and Gender Information Value Date Recorded Sex Assigned at Not on file Legal Sex Female 7:12 PM CDT Gender Identity Not on file Sexual Orientation Not on file documented as of this encounter Plan of Treatment Upcoming Encounters Date Type Department Care Team (Late st Contact Info) Description 04/26/2025 8:30 AM EST Office Visit [facility]iology [address] [place] [address] Ismael Justice MD [address] [place] [phone] documented as of this encounter Visit Diagnoses Diagnosis Inappropriate sinus node tachycardia (HCC) documented in this encounter Care Teams Dial Brusher Relationship Specialty Start Date End Date Maximiliano Moreira MD PCP - General Family Medicine 06/22/22 documented as of this encounter
--- OUTSIDE RECORDS SUMMARY | 2024-11-27 07:47 | XMS_ITS | Encounter Summary ---
Author Organization [facility] Address [address] [place] [address] Care Team Providers Care Peanut Roaster Name Role Phone Maximiliano Moreira MD Primary Care Provider [phone] Encounter Details Date Type Department Care Team [...] Description 11/30/2024 10:30 AM EDT Office Visit [facility] [address] [place] [address] 12/31/2024 8:40 AM EDT Office Visit [facility] [address] [place] [address] Sobia Kincaid, SHELTER MONITOR [address] [place] [address] documented as of this encounter Visit Diagnoses Not on filedocumented in this encounter Additional Health Concerns Assessment Noted Time A fall risk assessment has been complete d for the patient 09/01/2024 9:20 AM EDT A Body Mass Index follow-up plan has been documented for the patient 10/07/2024 11:51 AM EDT documented as of this encounter Care Teams Peanut Roaster Relationship Specialty Start Date End Date Maximiliano Moreira MD [address] [place] [address] PCP - General 01/20/24 documented as of this encounter
--- OUTSIDE RECORDS SUMMARY | 2024-11-27 07:47 | XMS_ITS | Encounter Summary ---
Author Organization [facility] Address [address] [place] [address] Care Team Providers Care Air Conditioning Mechanic Industrial Name Role Phone Maximiliano Moreira MD Primary Care Provider [phone] Encounter Details Date Type Department Care Team [...] Description 11/30/2024 10:30 AM EDT Office Visit [facility] [address] [place] [address] 12/31/2024 8:40 AM EDT Office Visit [facility] [address] [place] [address] Sobia Kicnaid, FAMILY SERVICE AIDE [address] [place] [address] documented as of this encounter Visit Diagnoses Not on filedocumented in this encounter Additional Health Concerns Assessment Noted Time A fall risk assessment has been complete d for the patient 09/01/2024 9:20 AM EDT A Body Mass Index follow-up plan has been documented for the patient 10/05/2024 1:42 PM EDT documented as of this encounter Care Teams Air Conditioning Mechanic Industrial Relationship Specialty Start Date End Date Maximiliano Moreira MD [address] [place] [address] PCP - General 01/20/24 documented as of this encounter
--- OUTSIDE RECORDS SUMMARY | 2024-11-27 07:47 | XMS_ITS | Encounter Summary ---
Author Organization [facility] Address [address] [place] [address] Care Team Providers Care Icing Maker Name Role Phone Maximiliano Moreira MD Primary Care Provider [phone] Encounter Details Date Type Department Care Team [...] [facility] [address] [place] [address] 12/31/2024 8:40 AM EDT Office Visit [facility] [address] [place] [address] Sobia Kincaid, LIBRARIAN ASSISTANT [address] [place] [address] documented as of this encounter Visit Diagnoses Not on filedocumented in this encounter Additional Health Concerns Assessment Noted Time A fall risk assessment has been complete d for the patient 09/01/2024 9:20 AM EDT A Body Mass Index follow-up plan has been documented for the patient 10/12/2024 11:59 AM EDT documented as of this encounter Care Teams Icing Maker Relationship Specialty Start Date End Date Maximiliano Moreira MD [address] [place] [address] PCP - General 01/20/24 documented as of this encounter
--- OUTSIDE RECORDS SUMMARY | 2024-11-27 07:47 | XMS_ITS | Referral Summary ---
Author Organization [email or web address] Address [address] [place] [address] Care Team Providers Care Absence Management Consultant Name Role Phone Maximiliano Moreira MD Primary Care Provider [phone] Allergies Active Allergy Reactions Criticality Noted Date Comments Androgenic Anabolic Steroid Nausea And Vomiting High 10/30/2022 States she has only been on medrol dose packs but has shown intolerance to steroids in the past. Budesonide Swelling High 04/04/2022 Other reaction(s): throat blisters, tongue swelling Formoterol Swelling High 04/04/2022 Other reaction(s): throat blisters, tongue swelling Liraglutide Low 11/08/2021 Other reaction(s): GI Intolerance Metformin Diarrhea Low 04/04/2022 Methylprednisolone Palpitations Low 02/07/2022 Sitagliptin Low 04/04/2022 Other reaction(s): GI Intolerance, stomach pain Medications spironolactone (ALDACTONE) 25 MG tablet Take 1 tablet (25 mg total) by mouth 3 (three) times a week MON/WED/FRI. 3 Active polyethylene glycol (GLYCOLAX) 17 gram/dose powder Take 17 g by mouth. 2 Active montelukast (SINGULAIR) 10 mg tablet Take 1 tablet (10 mg total) by mouth daily. 3 Active levothyroxine (SYNTHROID, LEVOTHROID) 50 MCG tablet Take 1 tablet (50 mcg total) by mouth daily. 3 Active ipratropium-al buteroL (DUO-NEB) 0.5 mg-3 mg(2.5 mg base)/3 mL nebulizer solution INHALE THE CONTENTS OF 1 VIAL VIA NEBULIZER FOUR TIMES DAILY NEEDED FOR SHORTNESS OF BREATH OR wheezing 2 Active Lantus Solostar U-100 Insulin 100 unit/mL (3 mL) InPn Inject 50 Units subcutaneously daily. 3 Active Farxiga 10 mg tablet Take 1 tablet (10 mg total) by mouth daily. 3 Active azelastine (ASTELIN) 137 mcg (0.1 %) nasal spray 1-2 sprays 2 (two) times daily. 3 Active atorvastatin (LIPITOR) 10 MG tablet Take 1 tablet (10 mg total) by mouth daily. 3 Active albuterol HFA (VENTOLIN HFA) 90 mcg/actuation inhaler inhale 1 TO 2 puffs BY MOUTH FOUR TIMES DAILY NEEDED 2 Active multivitamin with minerals tablet Take 1 tablet by mouth daily. Active umeclidinium brm/vilanterol tr (ANORO ELLIPTA INHL) Inhale by mouth via inhaler. Active metoprolol tartrate (LOPRESSOR) 50 MG tabletIndicati ons:Tachycardi a TAKE ONE TABLET BY MOUTH TWICE DAILY 180 tablet 3 4 Active Additional Information Patient taking differently:50 mg oral3 times daily, Reported on 04/27/2024 budesonide (PULMICORT) 0.25 mg/2 mL nebulizer solution 2 (two) times daily. 4 Active hydrocodone-ho matropine (Hycodan, with homatropine,) 5-1.5 mg Tab Take 1 tablet by mouth. 3 Active Active Problems No known active problems Social History Tobacco Use Types Packs/Day Years Used Date Smoking Tobacco: Former Passive Smoke Exposure: Never Smokeless Tobacco: Never Alcohol Use Standard Drinks/Week Comments Not Currently 0 (1 standard drink = 0.6 oz pur e alcohol) Interpersonal Safety Answer Date Record ed Family or friends hurt you Not on file 06/14 Family or friends insult you Not on file 05/2024 Family or friends threaten you Not on file 0 06/14/2023 Family or friends scream or curse at you Not on file 06/14/2023 Housing Stability Answer Date Recorded Living situation today Not on file Living situation problems Not on file 2023 Family and Community Support Answer Rai e Recorded Help with Day to Day Activities Not on file 06/14/2023 Feeling Lonely or Isolated Not on file 06/14 Educational Attainment Answer Date Tello rded Speak language other than Mauritanian at home Not on file 06/14/2023 Want help with school or training Not on file 06/14/2023 Depression Answer Date Recorded PHQ-2 Risk Not on file 06/14/2023 Disabilities Answer Date Recorded Difficulty concentrating Not on file 024 Difficulty doing errands alone Not on file 0 06/14/2023 Substance Use Answer Date Recorded Used prescription meds for non-medical reasons N ot on file 06/14/2023 Used illegal drugs past 12 months Not on file 06/14/2023 Comments No Sex and Gender Information Value Date Recorded Sex Assigned at Not on file Legal Sex Female 7:12 PM CDT Gender Identity Not on file Sexual Orientation Not on file Last Filed Vital Signs Vital Sign Reading Time Taken Comments Blood Pressure 125/80 04/27/2024 8:45 AM EST Pulse 90 04/27/2024 8:45 AM EST Temperature - - Respiratory Rate - - Oxygen Saturation 93% 04/27/2024 8:4 5 AM EST on 3 liters of 02 Inhaled Oxygen Concentration - - Weight 79.4 kg (175 lb) 04/27/2024 8:45 AM EST Height 152.4 cm (5') 04/27/2024 8:45 AM EST Body Mass Index 34.18 04/27/2024 8:45 AM EST Plan of Treatment Upcoming Encounters Date Type Department Care Team (Late st Contact Info) Description 04/26/2025 8:30 AM EST Office Visit [facility] Electrophysiology [address] [place] [address] Ismael Justice MD [address] [place] [address] [address] [place] [address] Insurance [employer] [facility] Care Teams Absence Management Consultant Relationship Specialty Start Date End Date Maximiliano Moreira MD PCP - General Family Medicine 06/22/22
--- OUTSIDE RECORDS SUMMARY | 2024-11-27 07:47 | XMS_ITS | Encounter Summary ---
Author Organization [facility] Address [address] [place] [address] Care Team Providers Care Industrial Engineering Technologist Name Role Phone Maximiliano Moreira MD Primary Care Provider [phone] Encounter Details Date Type Department Care Team [...] Description 11/30/2024 10:30 AM EDT [facility] [address] [place] [address] 12/31/2024 8:40 AM EDT Office Visit [facility] [address] [place] [address] Sobia Kincaid, NITROGEN OPERATOR [address] [place] [address] documented as of this encounter Visit Diagnoses Not on filedocumented in this encounter Additional Health Concerns Assessment Noted Time A fall risk assessment has been complete d for the patient 09/01/2024 9:20 AM EDT A Body Mass Index follow-up plan has been documented for the patient 09/28/2024 2:19 PM EDT documented as of this encounter Care Teams Industrial Engineering Technologist Relationship Specialty Start Date End Date Maximiliano Moreira MD [address] [place] [address] PCP - General 01/20/24 documented as of this encounter
--- OUTSIDE RECORDS SUMMARY | 2024-11-27 07:47 | XMS_ITS | Encounter Summary ---
Author Organization [facility] Address [address] [place] [address] Care Team Providers Care Crime Scene Evidence Technician Name Role Phone Maximiliano Moreira MD Primary Care Provider [phone] Encounter Details Date Type Department Care Team [...] Description 11/30/2024 10:30 AM EDT [facility] Visit [facility] [address] [place] [address] 12/31/2024 8:40 AM EDT Office Visit [facility] [address] [place] [address] Sobia Kincaid, ORDERLY [address] [place] [address] documented as of this encounter Visit Diagnoses Not on filedocumented in this encounter Additional Health Concerns Assessment Noted Time A fall risk assessment has been complete d for the patient 09/01/2024 9:20 AM EDT A Body Mass Index follow-up plan has been documented for the patient 09/30/2024 2:41 PM EDT documented as of this encounter Care Teams Crime Scene Evidence Technician Relationship Specialty Start Date End Date Maximiliano Moreira MD [address] [place] [address] PCP - General 01/20/24 documented as of this encounter
--- OUTSIDE RECORDS SUMMARY | 2024-11-27 07:48 | XMS_ITS | Encounter Summary ---
Author Organization [facility] Address [address] [place] [address] Care Team Providers Care Limousine And Hearse Upholsterer Name Role Phone Maximiliano Moreira MD Primary Care Provider [phone] Encounter Details Date Type Department Care Team (Latest Contact Info) Description 11/23/2024 Travel Social History Tobacco Use Types Packs/Day [...] Description 11/30/2024 10:30 AM EDT Office Visit [facility] [address] [place] [address] 12/31/2024 8:40 AM EDT Office Visit [facility] [address] [place] [address] Sobia Kincaid, INFORMATION DEVELOPER [address] [place] [address] documented as of this encounter Visit Diagnoses Not on filedocumented in this encounter Additional Health Concerns Assessment Noted Time A fall risk assessment has been complete d for the patient 09/01/2024 9:20 AM EDT A Body Mass Index follow-up plan has been documented for the patient 11/23/2024 11:56 AM EDT documented as of this encounter Care Teams Limousine And Hearse Upholsterer Relationship Specialty Start Date End Date Maximiliano Moreira MD [address] [place] [address] PCP - General 01/20/24 documented as of this encounter
--- OUTSIDE RECORDS SUMMARY | 2024-11-27 07:48 | XMS_ITS | Encounter Summary ---
Author Organization [facility] Address [address] [place] [address] Care Team Providers Care French Folding Machine Operator Name Role Phone Maximiliano Moreira MD Primary Care Provider [phone] Encounter Details Date Type Department Care Team [...] Description 11/30/2024 10:30 AM EDT Office Visit [facility] [address] [place] [address] 12/31/2024 8:40 AM EDT Office Visit [facility] [address] [place] [address] Sobia Kincaid, EARLY CHILDHOOD EDUCATION INSTRUCTOR [address] [place] [address] documented as of this encounter Visit Diagnoses Not on filedocumented in this encounter Additional Health Concerns Assessment Noted Time A fall risk assessment has been complete d for the patient 09/01/2024 9:20 AM EDT A Body Mass Index follow-up plan has been documented for the patient 11/04/2024 12:54 PM EDT documented as of this encounter Care Teams French Folding Machine Operator Relationship Specialty Start Date End Date Maximiliano Moreira MD [address] [place] [address] PCP - General 01/20/24 documented as of this encounter
--- OUTSIDE RECORDS SUMMARY | 2024-11-27 07:48 | XMS_ITS | Clinical Summary ---
Author Organization [facility] Address [address] [place] [address] Phone Care Team Providers Care Dry Cleaning Attendant Name Role Phone Unavailable Primary Care Provider [...] (ASTELIN) 137 mcg (0.1 %) Nasl Aerosol, Verner 1 Verner in each nostril daily. 2 Active fUROsemide [...] EDT Office Visit [facility] [address] [place] [address] Christianne Montana, EMILY Blurred vision, [...] TUNNEL RELEASE; Surgeon: Sharif Agarwal MD; [facility]; Service: Hand Medical History Medical History Date [...] ORDERA BLES Final Result Performing Organization Address [facility] Co de Phone Number SEP OFFICE * WOOD VISUAL FIELD - OU - BOTH EYES (09/21/2024 11:11 AM EDT) Narrative [facility] OFFICE - 09/21/2024 11:11 AM EDT Patient is here for follow up imaging. Notes 30-2 OD,OS Reliable Yes, No GHT ONL,WNL VFI 97%, 99% MD -2.73, -0.70 PSD 3.55, 1.71 nasal rim defects OD,clear OS [facility] ORDERA BLES Final Result Performing Organization Address City/[facility] Co de Phone Number SEP OFFICE from Last 3 Months Insurance [id number] [facility] [place]
--- OUTSIDE RECORDS SUMMARY | 2024-11-27 07:48 | XMS_ITS | Encounter Summary ---
Author Organization [facility] Address [address] [place] [address] Care Team Providers Care Radiographer Mammographer Name Role Phone Maximiliano Moreira MD Primary Care Provider [phone] Encounter Details Date Type Department Care Team [...] Description 11/30/2024 10:30 AM EDT Office Visit [facility] [address] [place] [address] 12/31/2024 8:40 AM EDT Office Visit [facility] [address] [place] [address] Sobia Kincaid, MAP CLERK [address] [place] [address] documented as of this encounter Visit Diagnoses Not on filedocumented in this encounter Additional Health Concerns Assessment Noted Time A fall risk assessment has been complete d for the patient 09/01/2024 9:20 AM EDT A Body Mass Index follow-up plan has been documented for the patient 11/11/2024 12:01 PM EDT documented as of this encounter Care Teams Radiographer Mammographer Relationship Specialty Start Date End Date Maximiliano Moreira MD [address] [place] [address] PCP - General 01/20/24 documented as of this encounter
--- OUTSIDE RECORDS SUMMARY | 2024-11-27 07:48 | XMS_ITS | Encounter Summary ---
Author Organization [facility] Address [address] [place] [address] Care Team Providers Care Fibre Technologist Name Role Phone Maximiliano Moreira MD Primary Care Provider [phone] Encounter Details Date Type Department Care Team [...] Description 11/30/2024 10:30 AM EDT Office Visit [facility] [address] [place] [address] 12/31/2024 8:40 AM EDT Office Visit [facility] [address] [place] [address] Sobia Kincaid, BAT LATHE OPERATOR [address] [place] [address] documented as of this encounter Visit Diagnoses Not on filedocumented in this encounter Additional Health Concerns Assessment Noted Time A fall risk assessment has been complete d for the patient 09/01/2024 9:20 AM EDT A Body Mass Index follow-up plan has been documented for the patient 10/29/2024 8:32 AM EDT documented as of this encounter Care Teams Fibre Technologist Relationship Specialty Start Date End Date Maximiliano Moreira MD [address] [place] [address] PCP - General 01/20/24 documented as of this encounter
--- OUTSIDE RECORDS SUMMARY | 2024-11-27 07:48 | XMS_ITS | Encounter Summary ---
Author Organization [facility] Address [address] [place] [address] Care Team Providers Care Barrel Ribs Solderer Name Role Phone Maximiliano Moreiar MD Primary Care Provider [phone] Encounter Details Date Type Department Care Team [...] Description 11/30/2024 10:30 AM EDT Office Visit [facility] [address] [place] [address] 12/31/2024 8:40 AM EDT Office Visit [facility] [address] [place] [address] Sobia Kincaid, BARREL RIBS SOLDERER [address] [place] [address] documented as of this encounter Visit Diagnoses Not on filedocumented in this encounter Additional Health Concerns Assessment Noted Time A fall risk assessment has been complete d for the patient 09/01/2024 9:20 AM EDT A Body Mass Index follow-up plan has been documented for the patient 11/09/2024 11:56 AM EDT documented as of this encounter Care Teams Barrel Ribs Solderer Relationship Specialty Start Date End Date Maximiliano Moreira MD [address] [place] [address] PCP - General 01/20/24 documented as of this encounter
--- OUTSIDE RECORDS SUMMARY | 2024-11-27 07:48 | XMS_ITS | Encounter Summary ---
Author Organization [facility] Address [address] [place] [address] Care Team Providers Care Juvenile Correctional Officer Name Role Phone Maximiliano Moreira MD Primary Care Provider [phone] Encounter Details Date Type Department Care Team [...] [facility] [address] [place] [address] 12/31/2024 8:40 AM EDT Office Visit [facility] [address] [place] [address] Sobia Kincaid, DOCK BOSS [address] [place] [address] documented as of this encounter Visit Diagnoses Not on filedocumented in this encounter Additional Health Concerns Assessment Noted Time A fall risk assessment has been complete d for the patient 09/01/2024 9:20 AM EDT A Body Mass Index follow-up plan has been documented for the patient 11/16/2024 11:48 AM EDT documented as of this encounter Care Teams Juvenile Correctional Officer Relationship Specialty Start Date End Date Maximiliano Moreira MD [address] [place] [address] PCP - General 01/20/24 documented as of this encounter
--- OUTSIDE RECORDS SUMMARY | 2024-11-27 07:48 | XMS_ITS ---
Author Organization [facility] Address [address] [place] [address] Care Team Providers Care Wood Inspector Name Role Phone Maximiliano Moreira MD Primary Care Provider [phone] Transplant Episode Lung Candidate [facility] ([place], [place]) [facility] Evaluation began on 02/24/2024 Marked as Active on 02/24/2024 Lung CoordinatorJackie Pimentel RN Fax: N/A Email: N/A Care Team Name Role Phone Fax Email Jackie Pimentel RN Lung Coordinator [phone] N/A N/A Events Pre-Transplant Referred: 01/08/2024 Evaluation began: 02/24/2024 Committee: 08/20/2024 Appointments (10/27/2024 - 12/27/2024) When With Visit Type Description 10/29/2024 Daniel [facility] Endocrinology - Return Type 2 diabetes mellitus with hyperglycemia, with long-term current use of insulin (CMS/HCC) 11/12/2024 Daniel Gutierrez Nutrition DSME Type 2 di abetes mellitus with hyperglycemia, with long-term current use of insulin (CMS/HCC) (Primary Dx) 11/26/2024 Daniel Christopher Endocrinology - Return Type 2 diabetes mellitus with hyperosmolarity without coma, with long-term current use of insulin (CMS/HCC) (Primary Dx)
--- OUTSIDE RECORDS SUMMARY | 2024-11-27 07:48 | XMS_ITS | Encounter Summary ---
Author Organization [facility] Address [address] [place] [address] Care Team Providers Care Odd Shoe Examiner Name Role Phone Maximiliano Moreira MD Primary Care Provider [phone] Encounter Details Date Type Department Care Team [...] Description 11/30/2024 10:30 AM EDT Office Visit [facility] [address] [place] [address] 12/31/2024 8:40 AM EDT Office Visit [facility] [address] [place] [address] Sobia Kincaid, FLOOR BROKER [address] [place] [address] documented as of this encounter Visit Diagnoses Not on filedocumented in this encounter Additional Health Concerns Assessment Noted Time A fall risk assessment has been complete d for the patient 09/01/2024 9:20 AM EDT A Body Mass Index follow-up plan has been documented for the patient 11/02/2024 12:02 PM EDT documented as of this encounter Care Teams Odd Shoe Examiner Relationship Specialty Start Date End Date Maximiliano Moreira MD [address] [place] [address] PCP - General 01/20/24 documented as of this encounter
--- OUTSIDE RECORDS SUMMARY | 2024-11-27 07:48 | XMS_ITS | Encounter Summary ---
Author Organization [facility] Address [address] [place] [address] Care Team Providers Care Deckhand Clam Dredge Name Role Phone Maximiliano Moreira MD Primary Care Provider [phone] Encounter Details Date Type Department Care Team [...] Description 11/30/2024 10:30 AM EDT [facility] Visit [facility] [address] [place] [address] 12/31/2024 8:40 AM EDT Office Visit [facility] [address] [place] [address] Sobia Kincaid, EXTRUDER OPERATOR MULTIPLE [address] [place] [address] documented as of this encounter Visit Diagnoses Not on filedocumented in this encounter Additional Health Concerns Assessment Noted Time A fall risk assessment has been complete d for the patient 09/01/2024 9:20 AM EDT A Body Mass Index follow-up plan has been documented for the patient 10/14/2024 11:40 AM EDT documented as of this encounter Care Teams Deckhand Clam Dredge Relationship Specialty Start Date End Date Maximiliano Moreira MD [address] [place] [address] PCP - General 01/20/24 documented as of this encounter
--- OUTSIDE RECORDS SUMMARY | 2024-11-27 07:48 | XMS_ITS | Encounter Summary ---
Author Organization [facility] Address [address] [place] [address] Care Team Providers Care Game Designer Name Role Phone Maximiliano Moreira MD Primary [...] [facility] [address] [place] [address] 12/31/2024 8:40 AM EDT Office Visit [facility] [address] [place] [address] Sobia Kincaid, DEMAND INSPECTOR [address] [place] [address] documented as of this encounter Visit Diagnoses Not on filedocumented in this encounter Additional Health Concerns Assessment Noted Time A fall risk assessment has been complete d for the patient 09/01/2024 9:20 AM EDT A Body Mass Index follow-up plan has been documented for the patient 10/19/2024 11:36 AM EDT documented as of this encounter Care Teams Game Designer Relationship Specialty Start Date End Date Maximiliano Moreira MD [address] [place] [address] PCP - General 01/20/24 documented as of this encounter
--- OUTSIDE RECORDS SUMMARY | 2024-11-27 07:48 | XMS_ITS | Encounter Summary ---
Author Organization [facility] Address [address] [place] [address] Care Team Providers Care Housekeeping Aid Name Role Phone Maximiliano Moreira MD Primary Care Provider Encounter Details Date Type Department Care Team (Late st Contact Info) Description 10/19/2024 Telephone [facility] Endocrinology [address] [place] [address] Deuce Lofton P, PharmD [address] [address] Social History Tobacco Use Types [...] Description 11/30/2024 10:30 AM EDT Office Visit [facility] Re[facility] [address] [place] [address] 12/31/2024 8:40 AM EDT [facility] [address] [place] [address] Sobia Kincaid S, JOB FORWARDER [address] [facility] [address] [place] [address] documented as of this encounter Visit Diagnoses Not on filedocumented in this encounter Additional Health Concerns Assessment Noted Time A fall risk assessment has been complete d for the patient 09/01/2024 9:20 AM EDT A Body Mass Index follow-up plan has been documented for the patient 10/19/2024 11:36 AM EDT documented as of this encounter Care Teams Housekeeping Aid Relationship Specialty Start Date End Date Maximiliano Moreira MD [address] [place] [address] PCP - General 01/20/24 documented as of this encounter
--- OUTSIDE RECORDS SUMMARY | 2024-11-27 07:48 | XMS_ITS | Encounter Summary ---
Author Organization [facility] Address [address] [place] [address] Care Team Providers Care Draw Off Worker Name Role Phone Maximiliano Moreira MD Primary Care Provider Encounter Details Date Type Department Care Team (Latest Contact Info) Description 11/18/2024 Travel Social History Tobacco Use Types Packs/Day [...] [facility] [address] [place] [address] 12/31/2024 8:40 AM EDT Office [facility] [address] [place] [address] Sobia Kincaid, ASSISTANT BROKER [address] [place] [address] documented as of this encounter Visit Diagnoses Not on filedocumented in this encounter Additional Health Concerns Assessment Noted Time A fall risk assessment has been complete d for the patient 09/01/2024 9:20 AM EDT A Body Mass Index follow-up plan has been documented for the patient 11/18/2024 11:40 AM EDT documented as of this encounter Care Teams Draw Off Worker Relationship Specialty Start Date End Date Maximiliano Moreira MD [address] [place] [address] PCP - General 01/20/24 documented as of this encounter
--- OUTSIDE RECORDS SUMMARY | 2024-11-27 07:48 | XMS_ITS | Encounter Summary ---
Author Organization [employer] Address [address] [place] [address] Care Team Providers Care Cash Posting Specialist Name Role Phone Maximiliano Moreira MD Primary Care Provider [phone] Reason for Visit * Reason Comments Medication Refill Encounter Details Date Type Department Care Team (Late st Contact Info) Description 07/22/2023 Refill [facility] Electrophysiology [address] [place] [phone] Ismael Justice MD [address] [place] [address] [address] [place] [address] Tachycardia Social History Tobacco Use Types Packs/Day Years Used Date Smoking Tobacco: Former Smokeless Tobacco: Never Interpersonal Safety Answer Date Record ed Family [...] Date Tello rded Speak language other than Lithuanian at home Not on file 06/14/2023 Want [...] Description 04/26/2025 8:30 AM EST Office Visit [facility] Electrophysiology [address] [place] [phone] Ismael Justice MD [address] [place] [address] [address] [place] [address] documented as of this encounter Visit Diagnoses Diagnosis Tachycardia Unspecified tachycardia documented in this encounter Care Teams Cash Posting Specialist Relationship Specialty Start Date End Date Maximiliano Moreira MD PCP - General Family Medicine 06/22/22 documented as of this encounter
--- OUTSIDE RECORDS SUMMARY | 2024-11-27 07:48 | XMS_ITS | Encounter Summary ---
Author Organization [facility] Address [address] [place] [address] Care Team Providers Care Personal Vehicle Advisor Name Role Phone Maximiliano Moreira MD Primary Care Provider [phone] Encounter Details Date Type Department Care Team [...] Description 11/30/2024 10:30 AM EDT Office Visit [facility] [address] [place] [phone] 12/31/2024 8:40 AM EDT Office Visit [facility] [address] [place] [phone] Sobia Kincaid, BILINGUAL CALL CENTER REPRESENTATIVE [address] [place] [address] documented as of this encounter Visit Diagnoses Not on filedocumented in this encounter Additional Health Concerns Assessment Noted Time A fall risk assessment has been complete d for the patient 09/01/2024 9:20 AM EDT A Body Mass Index follow-up plan has been documented for the patient 10/21/2024 11:49 AM EDT documented as of this encounter Care Teams Personal Vehicle Advisor Relationship Specialty Start Date End Date Maximiliano Moreira MD [address] [place] [address] PCP - General 01/20/24 documented as of this encounter
--- OUTSIDE RECORDS SUMMARY | 2024-11-27 07:48 | XMS_ITS | Encounter Summary ---
Author Organization [facility] Address [address] [place] [address] Care Team Providers Care Water Control Supervisor Name Role Phone Maximiliano Moreira MD Primary Care Provider [phone] Encounter Details Date Type Department Care Team [...] Description 11/30/2024 10:30 AM EDT Office [facility] [address] [place] [phone] 12/31/2024 8:40 AM EDT Office Visit [facility] [address] [place] [phone] Sobia Kincaid, LINOTYPIST [address] [place] [address] documented as of this encounter Visit Diagnoses Not on filedocumented in this encounter Additional Health Concerns Assessment Noted Time A fall risk assessment has been complete d for the patient 09/01/2024 9:20 AM EDT A Body Mass Index follow-up plan has been documented for the patient 10/28/2024 12:47 PM EDT documented as of this encounter Care Teams Water Control Supervisor Relationship Specialty Start Date End Date Maximiliano Moreira MD [address] [place] [address] PCP - General 01/20/24 documented as of this encounter
--- OUTSIDE RECORDS SUMMARY | 2024-11-27 07:48 | XMS_ITS | Clinical Summary ---
Author Organization [employer] Address [address] [place] [address] Care Team Providers Care Multimedia Specialist Name Role Phone Maximiliano Moreira MD Primary Care Provider [phone] Allergies Active Allergy Reactions Criticality Noted Date [...] Date Tello rded Speak language other than Uzbek at home Not on file 06/14/2023 Want [...] Description 04/26/2025 8:30 AM EST Office Visit [facility] Electrophysiology [address] [place] [address] Ismael Justice MD [address] [place] [address] [address] [place] [address] Health Maintenance Due Date Last Done Comments CT Colonography 1960 Colonoscopy 1960 Colorectal Cancer Screening 1960 FOBT/FIT 1960 Fit-DNA (Cologuard) 1960 Sigmoidoscopy 1960 Depression Screening (12+) 1972 HIV Screening 12/09/1975 Hepatitis C Screening 1978 DTAP/TDAP/TD VACCINES (1 - Tdap) 12/09/1979 Pap Smear 1981 Breast Cancer Screening 2000 Shingles Vaccine (Zoster) (1 of 2) 2010 Pneumococcal 50+ years (2 of 2 - PCV) 04/02/2017 COVID-19 VACCINE ( - season) 2024 04/19/2021, 09/01/2020, 08/04/2020 Influenza Vaccine (Season Ended) 2025 Tobacco Cessation Counseling and Screening (12+) 04/27/2025 04/27/2024 Lipid Panel 03/18/2027 03/18/2024 Respiratory Syncytial Virus (RSV) Adult or (1 - 1-dose 75+ series) 12/09/2035 Insurance [facility] Care Teams Multimedia Specialist Relationship Specialty Start Date End Date Maximiliano Moreira MD PCP - General Family Medicine 06/22/22
--- OUTSIDE RECORDS SUMMARY | 2024-11-27 07:48 | XMS_ITS | Clinical Summary ---
Author Organization [facility] Address [address] [place] [address] Care Team Providers Care Business Process Expert Name Role Phone Maximiliano Moreira MD Primary Care Provider [phone] Allergies Active Allergy Reactions Criticality Noted Date [...] Other reaction(s): GI Intolerance, stomach pain Medications ipratropium-alb uterol (Duo-Neb) 0.5-2.5 mg/3 mL nebulizer solution Inhale 3 mL 4 (four) times a day if needed for wheezing or shortness of breath. 01/28/20 24 Active budesonide (Pulmicort) 0.25 MG/2ML nebulizer solution Inhale 2 mL (0.25 mg) 2 (two) times a day. 09/17/19 24 Active Azelastine-Flut icasone 137-50 MCG/ACT suspension 137 mcg 1 (one) time each day. 01/28/20 24 Active metoprolol tartrate (Lopressor) 50 MG tablet Take 1.5 tablets (75 mg) by mouth 2 (two) times a day. 07/22/19 24 Active montelukast (Singulair) 10 MG tablet Take 1 tablet (10 mg) by mouth every night. 03/14/20 23 Active Umeclidinium-Vi lanterol (Anoro Ellipta) 62.5-25 MCG/ACT aerosol powder aerosol powder Inhale 1 Inhalation 1 (one) time each day. 01/28/20 24 Active atorvastatin (Lipitor) 10 MG tablet Take [...] every 10 (ten) days. 9 each 3 09/10/19 25 026 Active Continuous Glucose Photograph Enlarger (Dexcom G7 Photograph Enlarger) device 1 each daily. Use as directed 1 each 09/10/19 25 026 Active Insulin Glargine Max SoloStar 300 UNIT/ML solution pen-injector Inject 50 Units under the skin nightly. 10 mL 5 09/10/19 25 025 Active BD Pen Needle Fatuma U/F 32G X 4 MM misc 4x/day as directed 120 each 5 09/10/19 25 Active furosemide (Lasix) 40 MG tablet Take 1 tablet by mouth daily. + PRN for swelling Active Aspirin EC Adult Low Dose 81 MG EC tablet Take 1 tablet by mouth daily. 11/25/19 25 Active isosorbide mononitrate ER (Imdur) 30 MG 24 hr tablet Take 1 tablet by mouth daily. 11/25/19 25 Active DULoxetine (Cymbalta) [address] capsule Take 1 capsule by mouth 1 time each day. 11/17/19 25 Active NovoLOG FLEXPEN 100 UNIT/ML injection pen Inject 1 unit per every 7 gram carbohydrates prior to meals plus 1:30>150 SS, max dose 30u/day 11/27/19 25 Active NovoLOG FLEXPEN 100 UNIT/ML injection pen Inject subcutaneous 3 units with meals plus 1:30>150 SS, max dose 30u/day 10 mL 5 09/10/19 25 025 Discontin ued(Reord er) NovoLOG FLEXPEN 100 UNIT/ML injection pen Inject subcutaneous 4 units before breakfast and lunch, 5 units before dinner plus 1:30>150 SS, max dose 30u/day 15 mL 5 10/30/19 25 025 Discontin ued(Reord er) Active Problems Patient Care Coordination No te Formatting of this note migh t be different from the original. Evaluation completed Listing auth obtained. Pending listing appointment and Supervisor Home Energy Consultant clearance (weightloss) Problem Noted Date Diagnosed Date Type 2 diabetes mellitus with hyperosmolarity wi [facility] coma 09/09/2024 Hypertension 09/09/2024 Hyperlipidemia 09/09/2024 Class 1 obesity with serious comorbidity and body mass index (BMI) of 31.0 to 31.9 in adult 09/09/2024 Neuropathy 09/09/2024 COPD (chronic obstructive pulmonary disease) Encounter for diabetic foot exam 03/18/2024 Encounters Date Type Department Care Team Description 11/26/2024 8:00 AM EDT Office Visit [facility] [address] [place] [address] Deuce Lofton, PharmD Type 2 diabetes mellitus with hyperosmolarity without coma, with long-term current use of insulin (CMS/HCC) (Primary Dx) 11/26/2024 Travel 11/25/2024 10:30 AM EDT Office Visit [facility] [address] [place] [address] Other emphysema (CMS/HCC) (Primary Dx) 11/25/2024 Travel 11/23/2024 10:30 AM EDT Office Visit [facility] [address] [place] [address] Other emphysema (CMS/HCC) (Primary Dx) 11/23/2024 Travel 11/18/2024 10:30 AM EDT Office Visit [facility] [address] [place] [address] Other emphysema (CMS/HCC) (Primary Dx) 11/18/2024 Travel 11/16/2024 10:30 AM EDT Office Visit [facility] [address] [place] [address] Other emphysema (CMS/HCC) (Primary Dx) 11/16/2024 Travel 11/12/2024 4:[address] [facility] [place] [address] Henny Cervantes, COLLINS Type 2 diabetes mellitus with hyperglycemia, with long-term current use of insulin (CMS/HCC) (Primary Dx) 11/11/2024 10:30 AM EDT Office Visit [facility] [address] [place] [address] Other emphysema (CMS/HCC) (Primary Dx) 11/11/2024 Travel 11/09/2024 10:30 AM EDT Office Visit [facility] [address] [place] [address] Other emphysema (CMS/HCC) (Primary Dx) 11/09/2024 Travel 11/04/2024 10:30 AM EDT Office Visit [facility] [address] [place] [address] Other emphysema (CMS/HCC) (Primary Dx) 11/04/2024 Travel 11/02/2024 10:30 AM EDT Office Visit [facility] [address] [place] [address] Chronic obstructive pulmonary disease, unspecified COPD type (CMS/HCC) (Primary Dx); Other emphysema (CMS/HCC) 11/02/2024 Travel 10/29/2024 8:30 AM EDT Office Visit [facility] [place] [address] Deuce Lofton, PharmD Type 2 diabetes mellitus with hyperglycemia, with long-term current use of insulin (CMS/HCC) 10/29/2024 Travel 10/28/2024 10:30 AM EDT Office Visit [facility] [address] [place] [address] Chronic obstructive pulmonary disease, unspecified COPD type (CMS/HCC) (Primary Dx) 10/28/2024 Travel 10/21/2024 10:30 AM EDT Office Visit [facility] [address] [place] [address] Other emphysema (CMS/HCC) (Primary Dx) 10/21/2024 Travel 10/19/2024 10:30 AM EDT Office Visit [facility] [address] [place] [address] Other emphysema (CMS/HCC) (Primary Dx); Chronic obstructive pulmonary disease, unspecified COPD type (CMS/HCC) 10/19/2024 Travel 10/19/2024 Telephone [facility] [address] [place] [address] Deuce Lofton, PharmD 10/14/2024 10:30 AM EDT Office Visit [facility] [address] [place] [address] Other emphysema (CMS/HCC) (Primary Dx) 10/14/2024 Travel 10/12/2024 10:30 AM EDT Office Visit [facility] [address] [place] [address] Other emphysema (CMS/HCC) (Primary Dx) 10/12/2024 Travel 10/07/2024 10:30 AM EDT Office Visit [facility] [address] [place] [address] Other emphysema (CMS/HCC) (Primary Dx) 10/07/2024 Travel 10/05/2024 10:30 AM EDT Office Visit [facility] [address] [place] [address] Other emphysema (CMS/HCC) (Primary Dx) 10/05/2024 Travel 09/30/2024 10:30 AM EDT Office Visit [facility] [address] [place] [address] Other emphysema (CMS/HCC) (Primary Dx) 09/30/2024 Travel 09/28/2024 10:30 AM EDT Office Visit [facility] [address] [place] [address] Other emphysema (CMS/HCC) (Primary Dx) 09/28/2024 Travel 09/23/2024 10:30 AM EDT Office Visit [facility] [address] [place] [address] Pre-transplant evaluation for lung transplant; Other emphysema (CMS/HCC) 09/23/2024 Travel 09/17/2024 9:30 AM EDT Office Visit [facility] [address] [place] [address] Deuce Lofton, PharmD Type 2 diabetes mellitus with hyperglycemia, with long-term current use of insulin ([facility]) 09/17/2024 Travel 09/09/2024 9:00 AM EDT Office Visit [facility] [address] [place] [address] Sobia Kincaid APRN Type 2 diabetes mellitus with hyperglycemia, with long-term current use of insulin ([facility]) (Primary Dx); Encounter for diabetic foot exam ([facility]); Hypertension, unspecified type; Hyperlipidemia, unspecified hyperlipidemia type; Class 1 obesity with serious comorbidity and body mass index (BMI) of 31.0 to 31.9 in adult, unspecified obesity type; Neuropathy 09/09/[address] [facility] [address] [place] [address] Sobia Kincaid APRN Prior-authorization/in surance Verification 09/09/2024 Travel 09/03/2024 Orders Only [facility] [place] [address] [facility] [address] [place] [address] Jackie Pimentel, RN Pre-transplant evaluation for lung transplant (Primary Dx); Type 2 diabetes mellitus with hyperosmolarity without coma, unspecified whether buttermaker insulin use ([facility]/HCC) 09/03/2024 Orders Only [facility] [address] [address] Silvino Burkett, PharmD 09/02/2024 Orders Only [facility] [address] [address] Jackie Pimentel, RN Pre-transplant evaluation for lung transplant (Primary Dx); Other emphysema ([facility]/HCC) 09/01/2024 12:19 PM EDT - 09/01/2024 11:59 PM EDT Hospital Encounter [facility] [address] [place] [address] Pre-transplant evaluation for lung transplant Discharge Disposition: Home or Self Care 09/01/2024 12:19 PM EDT - 09/01/2024 11:59 PM EDT Hospital Encounter [facility] [address] [place] [address] Pre-transplant evaluation for lung transplant Discharge Disposition: Home or Self Care 09/01/2024 12:18 PM EDT Hospital Encounter [facility] Function Testing [address] [place] [address] Pre-transplant evaluation for lung transplant Discharge Disposition: Home or Self Care 09/01/2024 9:30 AM EDT Office Visit [facility] [address] [address] Hipolito Middleton MD Medicine, Transplant Lung End stage chronic obstructive pulmonary disease ([facility]/HCC) (Primary Dx); Pre-transplant evaluation for lung transplant; YANA (obstructive sleep apnea); Centrilobular emphysema ([facility]/HCC); Class 1 obesity due to excess calories without serious comorbidity with body mass index (BMI) of 32.0 to 32.9 in adult 09/01/2024 9:00 AM EDT Clinical Support [facility] [address] [place] [address] Pre-transplant evaluation for lung transplant 09/01/2024 Travel 08/31/2024 Orders Only [facility] [place] [address] [place] [address] Jackie Pimentel, RN Pre-transplant evaluation for lung transplant (Primary Dx) 08/28/2024 Travel 08/27/2024 Telephone [facility] [place] [address] [place] [address] Jackie Pimentel, RN Appointment from Last 3 Months Family History Medical [...] 9:14 AM EDT Oxygen Saturation 94% 11/09/2024 11:00 AM EDT Inhaled Oxygen Concentration - - Weight 79.9 kg (176 lb 2.4 oz) 11/26/2024 7:44 A M EDT Height 152.4 cm (5') 11/25/2024 2:00 PM EDT Body Mass Index 34.4 11/25/2024 2:00 PM EDT Plan of Treatment Upcoming Encounters Date Type Department Care Team (Late st Contact Info) Description 11/30/2024 10:30 AM EDT Office Visit [facility] [address] [place] [address] 12/31/2024 8:40 AM EDT Office Visit [facility] [address] [place] [address] Sobia Kincaid S, [employer] [address] [place] [address] Health Maintenance Due Date Last Done Comments [facility]-/Child/Adol SDOH Screenings 1960 Diabetes: Dental Exam 1970 [facility]- SDOH Screenings 1978 [facility]-Adult SDOH Screenings 1978 CT Colonography 2005 Colonoscopy 2005 FIT-DNA 2005 FIT 2005 FOBT 2005 Sigmoidoscopy 2005 [facility]-Colorectal Cancer Screening 2005 ODV-MMPCC-69 Vaccine (3 - Moderna risk series) 05/17/2021 [...] Vaccines Completed 10/29/2024, [facility]-Obesity Intervention Completed 025, 11/25/2024, 11/23/2024, Additional history exists HPV Vaccines Aged Out [...] Six-Minute Walk Test (09/01/2024 12:59 PM EDT) [facility] 6MWD TEST TESTING 250.00 m 09/01/2024 12:58 PM EDT [facility] PFT DIST. FINAL TEST 10.00 m 09/01/2024 12:58 PM EDT [facility] PFT LAPS TEST 8.00 09/01/2024 12:58 PM EDT [facility] PFT PAUSES TEST 0.00 09/01/2024 12:58 PM EDT [facility] PFT PAUSE TEST 0.00 sec 09/01/2024 12:58 PM EDT [facility] PFT DURATION TEST 6.00 min 09/01/2024 12:58 PM EDT [facility] PFT GQT3AOZ TEST 89.00 % 09/01/2024 12:58 PM EDT [facility] PFT GRK2IUA TEST 97.00 % 09/01/2024 12:58 PM EDT [facility] PFT PCO7RCQ TEST RECOVERY 89.00 % 09/01/2024 12:58 PM [...] and 6 at the conclusion of testing. Em Mcdonald MD PFT ORDERABLES Final Result * Spirogram (09/01/2024 12:59 PM EDT) RFH3VPJ 2.36 L 09/01/2024 12:46 PM EDT [facility] PFT FVC PRED 2.74 09/01/2024 12:46 PM EDT [facility] PFT FVC LLN 2.05 09/01/2024 12:46 PM EDT [facility]RE PFT FVCPREZSCORE -0.88 09/01/2024 12:46 PM EDT [facility]RE PFT FVCPRE%PRED 86 % % 09/01/2024 12:46 PM EDT [facility] PFT FVC [facility]AUTDR[facility] (2011) 09/01/2024 12:46 PM EDT [facility]RE PFT FVC Z-SCORE -0.88 09/01/2024 12:46 PM EDT V[facility]RE PFT FEV1 PRE 1.15 L 09/01/2024 12:46 PM EDT VY[facility]RE PFT FEV1 PRED 2.16 09/01/2024 12:46 PM EDT VY[facility]RE PFT FEV1 LLN 1.61 09/01/2024 12:46 PM EDT [facility]RE PFT [id number] -2.98 09/01/2024 12:46 PM EDT VY[facility]RE PFT FEV1_Pre%Pred 53 % % 09/01/2024 12:46 PM EDT [facility]RE PFT FEV1 PREDAUTH _[facility] (2011) 09/01/2024 12:46 PM EDT VYAIRE PFT FEV1 Z-SCORE -2.98 09/01/2024 12:46 PM EDT [facility]RE PFT FEV1/FVC PRE 48.48 % 09/01/2024 12:46 PM EDT [facility]RE PFT [id number] 79 09/01/2024 12:46 PM EDT [facility]RE PFT KFI3DKDFEH 67 09/01/2024 12:46 PM EDT [facility]RE PFT [id number] -3.52 09/02/19 12:46 PM EDT [facility]RE PFT NJR9KHPLJC%PRED 61 % % 12:46 PM EDT [facility]RE PFT [id number] _[facility] GL[facility] (2011) 09/01/2024 12:46 PM EDT [facility]RE PFT [id number] -4 09/01/2024 12:46 PM EDT [facility]RE PFT JOT15-11% PRE 0.43 L/s 09/01/2024 12:46 PM EDT [facility] PFT WWO32-73%_Pred 1.98 09/01/2024 12:46 PM EDT [facility]RE PFT JXW5434%LLN 0.98 09/01/2024 12:46 PM EDT [facility]RE PFT PHU2428%PREZSCOR E -2.98 09/01/2024 12:46 PM EDT VY[facility]RE PFT SKJ5339%PRE%PRED 22 % % 09/02/19 12:46 PM EDT [facility]RE PFT WYP8765%PREDAUTDR. [facility]_Daren GLI (2011) 09/01/2024 12:46 PM EDT VYAIRE [...] underwent pulmonary function testing today at [facility]. The patient underwent spirometry. All tests [...] (PFT Lab Performed) (09/01/2024 12:35 PM EDT) pH, Arterial 7.38 7.31 - 7.42 LAB HEMATOLOGY METHOD 09/01/2024 12:41 PM EDT [facility] pCO2, Arterial 41 35 - 48 mmHg LAB HEMATOLOGY METHOD 09/01/2024 12:41 PM EDT [facility] pO2, Arterial 57(LL) >80 mmHg LAB HEMATOLOGY METHOD 09/01/2024 12:41 PM EDT [facility] SO2, Measured, Arterial 90(L) 94 - 98 % LAB HEMATOLOGY METHOD 09/01/2024 12:41 PM EDT [facility] Base Excess, Arterial -1.0 -2.0 - 3.0 mmol/L LAB HEMATOLOGY METHOD 09/01/2024 12:41 PM EDT [facility] Bicarbonate, Calculated, Arterial 24 22 - 26 mmol/L LAB HEMATOLOGY METHOD 09/01/2024 12:41 PM EDT [facility] Hematocrit, Whole Blood 46.0(H) 34.0 - 45.0 % LAB HEMATOLOGY METHOD 09/01/2024 12:41 PM EDT [facility] Sodium, Whole Blood 138 136 - 145 mmol/L LAB HEMATOLOGY METHOD 09/01/2024 12:41 PM EDT [facility] Potassium, Whole Blood 4.3 3.6 - 4.9 mmol/L LAB HEMATOLOGY METHOD 09/01/2024 12:41 PM EDT [facility] Chloride, Whole Blood 106 97 - 107 mmol/L LAB HEMATOLOGY METHOD 09/01/2024 12:41 PM EDT [facility] Glucose, Whole Blood 195(H) 74 - 99 mg/dL LAB HEMATOLOGY METHOD 09/01/2024 12:41 PM EDT [facility] Ionized Calcium, Whole Blood 4.6 4.6 - 5.1 mg/dL LAB HEMATOLOGY METHOD 09/01/2024 12:41 PM EDT [facility] Lactate, Arterial, Whole Blood 2.5(H) 0.5 - 1.6 mmol/L LAB HEMATOLOGY METHOD 09/01/2024 12:41 PM EDT [facility] Blood Arterial blood specimen / Unknown Arterial Puncture / Unknown 09/01/2024 12:35 PM EDT 09/01/2024 12:39 PM EDT Em Mcdonald MD LAB BLOOD ORDERABLES Final Res ult [facility] [address] [place] [address] * HLA Antibody Testing (LSA) (09/01/2024 10:42 AM EDT) Blood Venous blood specimen / Unknown Venipuncture / Unknown 09/01/2024 10:42 AM EDT 09/01/2024 11:13 AM EDT Em Mcdonald MD LAB BLOOD ORDERABLES Final Res ult Performing Organization Address City/[facility]/ZIP Co de Phone Number [facility] [address] [place] [address], * (ABNORMAL) Hemogram with Diff (09/01/2024 10:42 AM EDT) WBC Count 8.58 3.70 - 10.30 10*3/uL LAB HEMATOLOGY METHOD 09/01/2024 11:26 AM EDT [facility] RBC Count 5.14 3.90 - 5.20 10*6/uL LAB HEMATOLOGY METHOD 09/01/2024 11:26 AM EDT [facility] HGB 15.7 11.2 - 15.7 g/dL LAB HEMATOLOGY METHOD 09/01/2024 11:26 AM EDT [facility] HCT 47.9(H) 34.0 - 45.0 % LAB HEMATOLOGY METHOD 09/01/2024 11:26 AM EDT [facility] Platelet Count 262 155 - 369 10*3/uL LAB HEMATOLOGY METHOD 09/01/2024 11:26 AM EDT [facility] MCV 93 79 - 98 fL LAB HEMATOLOGY METHOD 09/01/2024 11:26 AM EDT [facility] MCH 30.5 26.0 - 32.0 pg LAB HEMATOLOGY METHOD 09/01/2024 11:26 AM EDT [facility] MCHC 32.8 30.7 - 35.5 g/dL LAB HEMATOLOGY METHOD 09/01/2024 11:26 AM EDT [facility] RDW 13.0 11.5 - 14.5 % LAB HEMATOLOGY METHOD 09/01/2024 11:26 AM EDT [facility] MPV 9.8 8.8 - 12.5 fL LAB HEMATOLOGY METHOD 09/01/2024 11:26 AM EDT [facility] nRBC 0.0 <=0.0 per 100 WBCs LAB HEMATOLOGY METHOD 09/01/2024 11:26 AM EDT [facility] Differential Type Automated LAB HEMATOLOGY METHOD 09/01/2024 11:26 AM EDT [facility] Neutrophils % 55 % LAB HEMATOLOGY METHOD 09/01/2024 11:26 AM EDT [facility] Lymphocytes % 30 % LAB HEMATOLOGY METHOD 09/01/2024 11:26 AM EDT [facility] Monocytes % 9 % LAB HEMATOLOGY METHOD 09/01/2024 11:26 AM EDT [facility] Eosinophils % 4 % LAB HEMATOLOGY METHOD 09/01/2024 11:26 AM EDT [facility] Basophils % 1 % LAB HEMATOLOGY METHOD 09/01/2024 11:26 AM EDT [facility] Immature Granulocytes % 1 % LAB HEMATOLOGY METHOD 09/01/2024 11:26 AM EDT [facility] Neutrophils Absolute 4.82 1.60 - 6.10 10*3/uL LAB HEMATOLOGY METHOD 09/01/2024 11:26 AM EDT [facility] Lymphocytes Absolute 2.55 1.20 - 3.90 10*3/uL LAB HEMATOLOGY METHOD 09/01/2024 11:26 AM EDT [facility] Monocytes Absolute 0.76 0.30 - 0.90 10*3/uL LAB HEMATOLOGY METHOD 09/01/2024 11:26 AM EDT [facility] Eosinophils Absolute 0.36 0.00 - 0.50 10*3/uL LAB HEMATOLOGY METHOD 09/01/2024 11:26 AM EDT [facility] Basophils Absolute 0.05 0.00 - 0.10 10*3/uL LAB HEMATOLOGY METHOD 09/01/2024 11:26 AM EDT [facility] Immature Granulocytes Absolute 0.04 0.00 - 0.06 10*3/uL LAB HEMATOLOGY METHOD 09/01/2024 11:26 AM EDT [facility] Blood Venous blood specimen / Unknown Venipuncture / Unknown 09/01/2024 10:42 AM EDT 09/01/2024 11:15 AM EDT Narrative [facility] - 09/01/2024 11:26 AM EDT Therapeutic decision making should be based on absolute values, rather than percentages. us Em Mcdonald MD LAB BLOOD ORDERABLES Final Res ult [facility] [address] [place] [address] * Comprehensive Metabolic Panel (09/01/2024 10:42 AM EDT) Glucose, Plasma 92 74 - 99 mg/dL 09/01/2024 11:45 AM EDT [facility] BUN, Plasma 15 8 - 23 mg/dL 09/01/2024 11:45 AM EDT [facility] Creatinine, Plasma 0.60 0.60 - 1.10 mg/dL 09/01/2024 11:45 AM EDT [facility] BUN/Creatinine Ratio 25 09/01/2024 11:45 AM EDT [facility] Sodium, Plasma 138 136 - 145 mmol/L 09/01/2024 11:45 AM EDT [facility] Potassium, Plasma 4.4 3.6 - 4.9 mmol/L 09/01/2024 11:45 AM EDT [facility] Chloride, Plasma 104 97 - 107 mmol/L 09/01/2024 11:45 AM EDT [facility] CO2, Plasma 24 22 - 29 mmol/L 09/01/2024 11:45 AM EDT [facility] Anion Gap 10 6 - 16 mmol/L 09/01/2024 11:45 AM EDT [facility] Total Calcium, Plasma 9.8 8.9 - 10.2 mg/dL 09/01/2024 11:45 AM EDT [facility] Total Protein 7.9 6.3 - 7.9 g/dL 09/01/2024 11:45 AM EDT [facility] Albumin, Plasma 4.6 3.5 - 5.2 g/dL 09/01/2024 11:45 AM EDT [facility] AST, Plasma 27 10 - 35 U/L 09/01/2024 11:45 AM EDT [facility] Comment:Hemolyzed, result ma y be falsely increased. ALT, Plasma 21 10 - 35 U/L 09/01/2024 11:45 AM EDT [facility] Alkaline Phosphatase, Plasma 91 46 - 142 U/L 09/01/2024 11:45 AM EDT [facility] Total Bilirubin, Plasma 0.4 0.2 - 1.1 mg/dL 09/01/2024 11:45 AM EDT [facility] eGFRcr 101.0 mL/min/1.7 3m*2 09/01/2024 11:45 AM EDT [facility] Comment:Reported eGFRcr in m L/min/1.73m2 is based the CKD-EPI 2020 equation that does not use a race coefficient. Blood Venous blood specimen / Unknown Venipuncture / Unknown 09/01/2024 10:42 AM EDT 09/01/2024 11:11 AM EDT Em Mcdonald MD LAB BLOOD ORDERABLES Final Res ult Performing Organization Address City/[facility]/ZIP Co de Phone Number [facility] [address] [place] [address] * HIV 1 & 2 Antibody/Antigen Screen (03/18/2024 9:51 AM EDT) [facility] HIV 1 & 2 Antibody/Antigen Screen Non Reactive Non Reactive 03/18/2024 12:40 PM EDT [facility] Comment:Screening for HIV 1 & 2 antibodies, and P24 antigen is NONREACTIVE. No confirmatory testing is required. Blood Venous blood specimen / Unknown Venipuncture / Unknown 03/18/2024 9:51 AM EDT 03/18/2024 10:33 AM EDT Em Mcdonald MD LAB BLOOD ORDERABLES Final Res ult Performing Organization Address City/[facility]/ZIP Co de Phone Number [facility] [address] [place] [address] * Hepatitis C Antibody (03/18/2024 9:51 AM EDT) [facility] Hepatitis C Antibody Negative Negative 03/18/2024 11:27 AM EDT [facility] Blood Venous blood specimen / Unknown Venipuncture / Unknown 03/18/2024 9:51 AM EDT 03/18/2024 10:33 AM EDT us Em Mcdonald MD LAB BLOOD ORDERABLES Final Res ult Performing Organization Address City/[facility]/ZIP Co de Phone Number [facility] [address] [place] [address] * (ABNORMAL) Hemoglobin A1c (03/18/2024 9:51 AM EDT) Hemoglobin A1c 7.1(H) <5.7 % 03/18/2024 11:15 AM EDT [facility] Blood Venous blood specimen / Unknown Venipuncture / Unknown 03/18/2024 9:51 AM EDT 03/18/2024 10:56 AM EDT Narrative [facility] - 03/18/2024 11:15 AM EDT HA1C Interpretive Data: Diagnosis of Diabetes: Diabetic > or = 6.5% Pre-diabetic 5.7 to 6.4% Non-diabetic < or = 5.6% Glycemic Targets for Type I and Type II Diabetics: Non- Adults <7.0% Adults <6.0% Children and Adolescents <7.5% Source: [place] [employer]. Standards of medical care in diabetes,2017. Diabetes Care.2017:40 (suppl 1):S1-S135. HbA1c assay performed by an ion-exchange chromatography method that is certified traceable to the DCCT. us Em Mcdonald MD LAB BLOOD ORDERABLES Final Res ult [facility] [address] [place], [place] [id number] from Last 3 Months or Most Recently Relevant to Health Maintenance Insurance [employer] [facility] MED[facility] Care Teams Business Process Expert Relationship Specialty Start Date End Date Maximiliano Moreira MD [address] [place] [address] [place] [address] PCP - General 01/20/24
[2024-11-27] MEDS: ALBUTEROL 0.083% 2.5 MG/3 ML NEB IH (08:52)
--- NOTE | 2024-11-27 08:53 | PC.NURSE ---
PFT and 6Minute Walk Test completed on Pt without incident. Albuterol 0.083% given via HHN, per written protocol, Pt tolerated tx well.
== END 2024-11-27 23:59 | disposition home or self-care (01) ==
LOC: RT 07:46
PROVIDERS: PCP Family Medicine; Visit Provider Internal Medicine Pulmonary Disease
DX: J44.9 Chronic obstructive pulmonary disease, unspecified (principal); R94.2 Abnormal results of pulmonary function studies
CPT/HCPCS: 94060; 94618; 94726; 94729